=== PATIENT | female | born 1985 | race Caucasian/White ===

== ENCOUNTER 2020-02-03 19:22 | Emergency (ER) | payer OTHER, SELFPAY ==
--- NOTE | 2020-02-03 20:01 | ED.URI ---
HPI - URI/Sore Throat General Stated Complaint: fever and headache <Jose Guadalupe Torre NP - Last Filed: 02/03/20 21:08> Time Seen by Provider: 02/03/20 20:00 <Jose Guadalupe Torre NP - Last Filed: 02/03/20 21:08> Source: patient <Jose Guadalupe Torre NP - Last Filed: 02/03/20 21:08> Mode of arrival: ambulatory <Jose Guadalupe Torre NP - Last Filed: 02/03/20 21:08> Limitations: no limitations <Jose Guadalupe Torre NP - Last Filed: 02/03/20 21:08> History of Present Illness HPI Narrative: 34-year-old female with history of asthma presenting laboratory view treated with complaint of clove the setting of recent URI has had congestion and runny nose for the past to 5 days. states she returned from [place] 2 weeks ago was feeling ok and now these sx's. <Jose Guadalupe Torre NP - Last Filed: 02/03/20 21:08> MD elicited complaint: cough, rhinorrhea and sinus pain <Jose Guadalupe Torre NP - Last Filed: 02/03/20 21:08> Pertinent past history: asthma <Jose Guadalupe Torre NP - Last Filed: 02/03/20 21:08> Onset (ago): day(s) <Jose Guadalupe Torre NP - Last Filed: 02/03/20 21:08> Consistency: constant <Jose Guadalupe Torre NP - Last Filed: 02/03/20 21:08> Severity: moderate <Jose Guadalupe Torre NP - Last Filed: 02/03/20 21:08> Description of mucous: clear <Jose Guadalupe Torre NP - Last Filed: 02/03/20 21:08> Able to tolerate fluids by mouth: Yes <Jose Guadalupe Torre NP - Last Filed: 02/03/20 21:08> Exacerbating factors: nothing <Jose Guadalupe Torre NP - Last Filed: 02/03/20 21:08> Relieving factors: nothing <Jose Guadalupe Torre NP - Last Filed: 02/03/20 21:08> Associated symptoms: cough <Jose Guadalupe Torre NP - Last Filed: 02/03/20 21:08> Treatments prior to arrival: none <Jose Guadalupe Torre NP - Last Filed: 02/03/20 21:08> Related Data Home Medications: Previous Rx's Medication Instructions Recorded azithromycin [Zithromax Z-Wong] 250 mg PO DAILY 5 Days #6 tab 02/03/20 prednisone 40 mg PO DAILY #10 tab 02/03/20 <Jose Guadalupe Torre NP - Last Filed: 02/03/20 21:08> Allergies/Adverse Reactions: Allergies Allergy/AdvReac Type Severity Reaction Status Date / Time Seafood Allergy Severe HIVES/SWELL Uncoded 01/05/20 17:13 ING seafood Allergy Unknown Uncoded 09/02/17 00:00 <Jose Guadalupe Torre NP - Last Filed: 02/03/20 21:08> Review of Systems Review of Systems: Constitutional: No Weight loss, No Fever, No Chills, No Night Sweats, No Fatigue, No Malaise ENT/Mouth: No Hearing loss, No Ear Pain, No Hoarseness, No sore throat, No Rhinorrhea, No Swallowing Difficulty Eyes: No Eye Pain, No Swelling, No Redness, No Foreign Body, No Discharge, No Vision Changes Cardiovascular: No Chest Pain, No SOB, No Dyspnea on Exertion, No Orthopnea, No Edema, No Palpitations Respiratory: + Cough, No Sputum, No Wheezing, No Smoke Exposure, No Dyspnea Gastrointestinal: No Nausea, No Vomiting, No Diarrhea, No Constipation, No abdominal Pain, No Hematochezia, No Melena Genitourinary: no irregular bleeding, No Dysuria, No Urinary Frequency, No Hematuria, No Urinary Incontinence, No Urgency, No Flank Pain, No Urinary Flow Changes, No Hesitancy Musculoskeletal: No joint pain, No Myalgias, No Joint Swelling Skin: No Skin Lesions, No rash Neuro: No Weakness, No Numbness, No Paresthesias, No Loss of Consciousness, No Dizziness, No Headache Psych: No Anxiety/Panic, No Depression, No SI/HI/AH/VH, No Social Issues Heme/Lymph: No Bruising, No Bleeding,No Lymphadenopathy Endocrine: No Polyuria, No Polydipsia, No Temperature Intolerance <Jose Guadalupe Torre NP - Last Filed: 02/03/20 21:08> [facility] Past Medical History Attestation statement: The following information was validated with the patient. <Jose Guadalupe Torre NP - Last Filed: 02/03/20 21:08> Medical History: Medical History (Updated 02/03/20 @ 21:06 by Jose Guadalupe Torre NP) Asthma Gastritis Migraine Sleep apnea <Jose Guadalupe Torre NP - Last Filed: 02/03/20 21:08> Surgical History: Surgical History (Updated 02/03/20 @ 20:17 by Shazia Macias) H/O left knee surgery <Jose Guadalupe Torre NP - Last Filed: 02/03/20 21:08> Social History Social History: Social History Advance Directives: No <Jose Guadalupe Torre NP - Last Filed: 02/03/20 21:08> Physical Exam Vital Signs: Vital Signs: Vital Signs Temp Pulse Resp BP Pulse Ox 02/03/20 20:07 98.7 F 93 16 131/83 98 Body Mass Index 38.4 Reviewed <Jose Guadalupe Torre NP - Last Filed: 02/03/20 21:08> Vital Signs: Vital Signs Temp Pulse Resp BP Pulse Ox 02/03/20 20:07 98.7 F 93 16 131/83 98 Body Mass Index 38.4 <Adam Lynne MD - Last Filed: 02/03/20 21:12> Const: General: cooperative and healthy appearing; No acute distress or intoxicated appearing <Jose Guadalupe Torre NP - Last Filed: 02/03/20 21:08> Nutritional Appearance: average body habitus <Jose Guadalupe Torre NP - Last Filed: 02/03/20 21:08> Orientation/consciousness: patient oriented x3 <Jose Guadalupe Torre NP - Last Filed: 02/03/20 21:08> HENMT: Head: Yes normal to inspection <Jose Guadalupe Torre NP - Last Filed: 02/03/20 21:08> Ears: hearing grossly normal bilaterally <Jose Guadalupe Torre NP - Last Filed: 02/03/20 21:08> Eyes: General: appearance normal, both eyes and all related structures <Jose Guadalupe Torre NP - Last Filed: 02/03/20 21:08> Visual Shannon: normal visual shannon by confrontation <Jose Guadalupe Torre NP - Last Filed: 02/03/20 21:08> Neck: Neck: Yes normal visual inspection and No tender <Jose Guadalupe Torre NP - Last Filed: 02/03/20 21:08> Thyroid: Thyroid normal [facility] Last Filed: 02/03/20 21:08> Chest: Chest palpation & inspection: normal inspection of the chest <[facility] Torre, - Last Filed: 02/03/20 21:08> Resp: Other: mild dry bronchial cough [facility] - Last Filed: 02/03/20 21:08> Effort & Inspection: normal respiratory effort <[facility] - Last Filed: 02/03/20 21:08> Cardio: Jugular venous distension: no JVD [facility] - Last Filed: 02/03/20 21:08> GI: Inspection: Yes normal to inspection [facility] - Last Filed: 02/03/20 21:08> Percussion: Yes normal to percussion [facility] - Last Filed: 02/03/20 21:08> Auscultation: normal bowel sounds <[facility] - Last Filed: 02/03/20 21:08> : General: Yes no CVA tenderness [facility] - Last Filed: 02/03/20 21:08> Back/Spine/Pelvis: Back: no CVA tenderness [facility] - Last Filed: 02/03/20 21:08> Skin: General skin exam: no rashes or lesions noted <[facility] - Last Filed: 02/03/20 21:08> Neuro: General: patient oriented x3 <[facility] Nicho - Last Filed: 02/03/20 21:08> Extrem: General: Yes normal to inspection [facility] - Last Filed: 02/03/20 21:08> Course Course Course Narrative: I have reviewed the chart <Adam Lynne MD - Last Filed: 02/03/20 21:12> MDM - URI/Sore Throat Differential Diagnosis Differential diagnosis: Likely upper respiratory infection, viral infection and bronchitis; Unlikely croup, otitis media, sinusitis, influenza and pharyngitis <[facility] ALEXIA Torre - Last Filed: 02/03/20 21:08> Imaging Data Chest x-ray: Radiologist's impression: [address] [address] XRay Report Signed Patient: Michael Melendrez#: [id number] : 1985Acct:[id number] Age/Sex: 34 / FADM Date: 02/03/20 Loc: HO.ED Attending Dr: Ordering Physician: Jose Guadalupe Torre NP Date of Service: 02/03/20 Procedure(s): XR chest 1V Accession Number(s): [id number] cc: Jose Guadalupe Torre NP~ EXAMINATION: XR CHEST CLINICAL INFORMATION: Cough COMPARISON: Chest x-ray 05/26/2017 TECHNIQUE: Frontal portable view of the chest was obtained. 8:24 PM FINDINGS: No significant abnormality is noted involving the heart, lungs, mediastinum, bony thorax or soft tissues. IMPRESSION: Unremarkable examination. Dictated By:CHARO CORTES MD Signed By:<Electronically signed by CHARO CORTES MD in OV>02/03/202040 DD/ 00 TD/TT: Tumbler Plater: KALI <Jose Guadalupe Torre NP - Last Filed: 02/03/20 21:08> Discharge Plan Discharge Clinical Impression: Upper respiratory infection, Bronchitis <Jose Guadalupe Torre NP - Last Filed: 02/03/20 21:08> Patient Disposition: Home, Self-Care <Jose Guadalupe Torre NP - Last Filed: 02/03/20 21:08> Instructions: Acute Bronchitis (ED) <Jose Guadalupe Torre NP - Last Filed: 02/03/20 21:08> Additional Instructions: Take medication prescribed COVID test is pending Chest x-ray was unremarkable did not show any evidence of pneumonia Drink plenty of fluids Self-isolation We will call you with COVID test results in 3-4 days Return if any concerns or worsening symptoms Thank you <Jose Guadalupe Torre NP - Last Filed: 02/03/20 21:08> Prescriptions: New azithromycin [Zithromax Z-Wong] 250 mg tablet 250 mg PO DAILY 5 Days Qty: 6 RF: 0 prednisone 20 mg tablet 40 mg PO DAILY Qty: 10 RF: 0 <Jose Guadalupe Torre NP - Last Filed: 02/03/20 21:08> Referrals: ED Physician,Generic [Emergency Provider] - 1 week ( your primary care) <Jose Guadalupe Torre NP - Last Filed: 02/03/20 21:08>
[2020-02-03 20:07] VITALS: BP 131/83; PULSE 93; RESP 16; TEMP 37.1; O2SAT 98; BMI 38.4
== END 2020-02-03 21:00 | disposition home or self-care (01) ==
PROVIDERS: Nurse Practitioner Primary Care; Emergency Provider Emergency Medicine
DX: J06.9 Acute upper respiratory infection, unspecified (principal); J20.9 Acute bronchitis, unspecified; Z20.828 Contact with and (suspected) exposure to other viral communicable diseases
CPT/HCPCS: 71045; 87635; 99283; 99284

== ENCOUNTER → 2020-05-03 12:00 | Outpatient (BNVA) | payer OTHER, SELFPAY | PROVIDERS: Visit Provider Surgery | DX: Z01.818 Encounter for other preprocedural examination (principal); R06.02 Shortness of breath; E66.01 Morbid (severe) obesity due to excess calories; Z68.41 Body mass index [BMI] 40.0-44.9, adult | CPT/HCPCS: 99202 ==

== ENCOUNTER 2020-05-08 06:16 | Outpatient (REF) | payer OTHER, SELFPAY ==
--- NOTE | 2020-05-08 06:43 | ECG_ITS ---
Test Reason : SOB Blood Pressure : / mmHG Vent. Rate : 080 BPM Atrial Rate : 080 BPM P-R Int : 154 ms QRS Dur : 086 ms QT Int : 392 ms P-R-T Axes : 058 022 008 degrees QTc Int : 452 ms Normal sinus rhythm Normal ECG When compared with ECG of 26-MAY-2017 10:23, No significant change was found Referred By: Selena Steele Electronically Signed By:RASHMI POWELL
--- NOTE | 2020-05-08 06:51 | XR_ITS ---
EXAMINATION: XR CHEST CLINICAL INFORMATION: Shortness of breath COMPARISON: Chest 02/03/2020 TECHNIQUE: 2 views of the chest were obtained. FINDINGS: No significant abnormality is noted involving the heart, lungs, mediastinum, bony thorax or soft tissues. XR/XR chest 2V IMPRESSION: Unremarkable chest examination.
[2020-05-08 07:16] LABS: Mean Corpuscular Hemoglobin 28.9 pg (27.0-33.0)
[2020-05-08 07:18] LABS: Basophils Percent Auto 0.3 % (0-2); Eosinophils Absolute Auto 0.1 X10*3/uL (0.0-0.4); Eosinophils Percent Auto 1.3 % (0-4); Hematocrit 39.9 % (37-47); Hemoglobin 12.8 g/dl (12.0-16.0); Imm Gran Abs Auto 0.02 X10*3/uL (0.00-0.03); Imm Gran Pct Auto 0.2 % (0.0-0.4); Lymphocytes Absolute Auto 3.1 X10*3/uL (1.2-4.9); Lymphocytes Percent Auto 31.7 % (20-40); Mean Corpuscular HGB Conc 32.1 g/dl (31.0-35.0); Mean Corpuscular Volume 90.1 fL (80-98); Monocytes Absolute Auto 0.8 X10*3/uL (0.1-1.2); Monocytes Percent Auto 8.2 % (2-11); Neutrophils Absolute Auto 5.8 X10*3/uL (2.0-8.3); Neutrophils Percent Auto 58.3 % (45-73); Platelet Count 235 X10*3/uL (160-400); Red Blood Count 4.43 X10*6/uL (4.20-5.50); Red Cell Distribution Width 12.3 % (11.0-16.0); White Blood Count 9.9 X10*3/uL (4.8-10.8)
[2020-05-08 07:40] LABS: Alanine Aminotransferase 47 U/L (0-31); Albumin Level 4.1 g/dL (3.5-5.0); Alkaline Phosphatase 53 U/L (39-117); Anion Gap 14 (12-20); Aspartate Amino Transferase 28 U/L (5-31); Bilirubin Total 0.6 mg/dL (0.0-1.0); Blood Urea Nitrogen 17 mg/dL (9-16); C Reactive Protein 1.27 mg/dL (< or = 0.50); Calcium 9.5 mg/dL (8.4-10.2); Carbon Dioxide 24 mmol/L (22-29); Chloride 104 mmol/L (96-108); Cholesterol 163 mg/dL; Estimated Glomerular Filt Rate > 60; Glucose Fasting 84 mg/dL (60-99); HDL Cholesterol 33 mg/dL; Iron 42 mcg/dL (30-160); LDL Cholesterol Calculated 117 mg/dl; Percent Iron Saturation 14 % (15-50); Potassium 3.6 mmol/l (3.3-5.1); Sodium 138 mmol/L (135-145); Total Iron Binding Capacity 296 mcg/dL (228-428); Total Protein 7.8 g/dL (6.5-8.0); Triglycerides 68 mg/dL; Unsaturated Iron Binding 254 ug/dL
[2020-05-08 07:47] LABS: MANUAL DIFF FLAG NO
[2020-05-08 08:02] LABS: Vitamin D 25-OH Total 4.7 ng/mL (>30)
[2020-05-08 09:08] LABS: Vitamin B12 175 pg/mL (200-900)
[2020-05-10 20:07] LABS: Calcium (PTHI) 9.7 mg/dL (8.6-10.2); PTHI 20 pg/mL (14-64)
[2020-05-11 00:02] LABS: Zinc 62 mcg/dL (60-130)
[2020-05-12 18:07] LABS: Vitamin A 23 mcg/dL (38-98)
[2020-05-13 08:27] LABS: Vitamin B1 7 nmol/L (8-30)
== END 2020-05-08 06:17 | disposition home or self-care (01) ==
LOC: HO.LAB 06:16
PROVIDERS: Visit Provider Surgery
DX: Z01.818 Encounter for other preprocedural examination (principal); R06.02 Shortness of breath
CPT/HCPCS: 36415; 71046; 80053; 80061; 82306; 82607; 83540; 83970; 84425; 84443; 84590; 84630; 85025; 86140; 93005

== ENCOUNTER → 2020-05-17 08:11 | Outpatient (BNVA) | payer OTHER, SELFPAY | PROVIDERS: Visit Provider Surgery ==

== ENCOUNTER 2020-05-18 08:51 | Outpatient (REF) | payer OTHER, SELFPAY ==
[2020-05-19 13:47] LABS: H Pylori Breath Test NOT DETECTED (NOT DETECTED)
== END 2020-05-18 08:52 | disposition home or self-care (01) ==
LOC: HO.LNP 08:51
PROVIDERS: Visit Provider Physician Assistant
DX: A04.8 Other specified bacterial intestinal infections (principal)
CPT/HCPCS: 83013; 99211

== ENCOUNTER → 2020-05-31 08:25 | Outpatient (BNVA) | payer OTHER, SELFPAY | PROVIDERS: Visit Provider Dietitian, Registered ==

== ENCOUNTER → 2020-06-14 13:50 | Outpatient (BNVA) | payer OTHER, SELFPAY | PROVIDERS: PCP Nurse Practitioner Family; Visit Provider Surgery | DX: E66.9 Obesity, unspecified (principal); Z68.35 Body mass index [BMI] 35.0-35.9, adult | CPT/HCPCS: 99212 ==

== ENCOUNTER → 2020-06-20 08:17 | Outpatient (BNVA) | payer OTHER, SELFPAY | PROVIDERS: PCP Nurse Practitioner Family; Visit Provider Dietitian, Registered ==

== ENCOUNTER → 2020-07-09 13:54 | Outpatient (BNVA) | payer OTHER, SELFPAY | PROVIDERS: PCP Nurse Practitioner Family; Visit Provider Surgery | DX: E66.9 Obesity, unspecified (principal); Z68.34 Body mass index [BMI] 34.0-34.9, adult | CPT/HCPCS: 99212 ==

== ENCOUNTER → 2020-07-16 13:18 | Outpatient (BNVA) | payer OTHER, SELFPAY | PROVIDERS: PCP Nurse Practitioner Family; Visit Provider Physician Assistant | DX: Z01.818 Encounter for other preprocedural examination (principal); E66.9 Obesity, unspecified; Z68.33 Body mass index [BMI] 33.0-33.9, adult | CPT/HCPCS: 99212 ==

== ENCOUNTER 2020-07-18 07:13 | Inpatient (IN) | payer OTHER, SELFPAY ==
[2020-07-16 11:00] VITALS: BMI 34.6
[2020-07-17 10:48] VITALS: BMI 34.2
--- NOTE | 2020-07-17 11:22 | ECG_ITS ---
Test Reason : SOB Blood Pressure : / mmHG Vent. Rate : 066 BPM Atrial Rate : 066 BPM P-R Int : 158 ms QRS Dur : 088 ms QT Int : 430 ms P-R-T Axes : 049 023 019 degrees QTc Int : 450 ms Normal sinus rhythm Normal ECG When compared with ECG of 08-MAY-2020 06:45, No significant change was found Referred By: Selena Steele Electronically Signed By:Gulshan Thompson
--- NOTE | 2020-07-17 12:22 | HO.ANESPROP2 ---
Documented by User: Triny Robbins 07/17/20 12:23 HPI - Anesthesia Eval Consult details Narrative: 34yo F for Gastrectomy Sleeve PENDING: LABS T&S PMFSH Active Problems Active Problems: All Active Problems (Updated 07/16/20 @ 15:54 by Selena Steele MD) BMI 33.0-33.9,adult (Acute) Preoperative examination (Acute) Shortness of breath (Acute) Obesity (Acute) BMI 39.0-39.9,adult (Acute) BMI 40.0-44.9, adult (Acute) Morbid (severe) obesity due to excess calories (Acute) Vitamin D deficiency (Acute) Vitamin A deficiency (Acute) Vitamin B1 deficiency (Acute) BMI 35.0-35.9,adult (Acute) BMI 34.0-34.9,adult (Acute) Adjustment disorder, unspecified (Acute) Past Medical History Medical History Asthma Gastritis Migraine MARYANA on CPAP Prediabetes Sleep apnea Family History Family History Father Hypertension Heart problem Vertigo Mother Dementia Alzheimer disease Pneumathemia Sister Depressed Hypertension Anxiety History of gastric surgery Sister Diabetes mellitus Hypertension Depressed Anxiety Brother No problems noted. Brother No problems noted. Son Asthma Diabetes mellitus Obese abdomen Daughter Asthma Surgical History Surgical History H/O left knee surgery History of bilateral tubal ligation Hx laparoscopic cholecystectomy Hx of colonoscopy Normal endoscopy Social History Social History Are you a primary managed care nurse to a significant other at home: No Do you presently have visiting nurse or other home services: No Alcohol intake: never Smoking Status: Never smoker Use of substances other than those prescribed or required for medical reasons: No Have you been hit, kicked, punched, or otherwise hurt by someone within the past year? If so, by whom?: No Advance Directives: No Advance Directives Information Provided: No Advance Directives on File: No Recently lost weight without trying: No Meds Allergies Allergy/AdvReac Type Severity Reaction Status Date / Time Seafood Allergy Severe HIVES/SWELL Uncoded 07/18/20 08:54 ING Home Medications Medication Instructions Recorded Confirmed Last Taken Type diclofenac sodium 1 % topical gel 2 g TOPICAL QID 05/03/20 07/16/20 Unknown History mecobalamin (vitamin B12) 1,000 1,000 mcg PO DAILY 05/17/20 07/16/20 07/09/20 History mcg chewable tablet albuterol sulfate 90 mcg/actuation 1 inh INHALATION QID PRN 06/14/20 07/16/20 Unknown History aerosol inhaler Exam Exam Date and Time: July 17, 2020 1222 Height,Weight and Vital Signs: Height 5 ft 5 in Weight 93.44 kg Narrative Narrative: EKG 07/17/20 Vent. Rate : 066 BPM Atrial Rate : 066 BPM P-R Int : 158 ms QRS Dur : 088 ms QT Int : 430 ms P-R-T Axes : 049 023 019 degrees QTc Int : 450 ms Normal sinus rhythm Normal ECG When compared with ECG of 08-MAY-2020 06:45, No significant change was found Assessment and Plan Assessment Anesthesia Assessment: Chart Reviewed Documented by User: Yesenia Wolf 07/18/20 09:37 [facility] Past Medical History Medical History Asthma Gastritis Migraine MARYANA on CPAP Prediabetes Sleep apnea Family History Family History Father Hypertension Heart problem Vertigo Mother Dementia Alzheimer disease Pneumathemia Sister Depressed Hypertension Anxiety History of gastric surgery Sister Diabetes mellitus Hypertension Depressed Anxiety Brother No problems noted. Brother No problems noted. Son Asthma Diabetes mellitus Obese abdomen Daughter Asthma Family history of problems with anesthesia: No Surgical History Surgical History H/O left knee surgery History of bilateral tubal ligation Hx laparoscopic cholecystectomy Hx of colonoscopy Normal endoscopy History of Problems with Anesthesia: No Social History Social History Are you a primary managed care nurse to a significant other at home: No Do you presently have visiting nurse or other home services: No Alcohol intake: never Smoking Status: Never smoker Use of substances other than those prescribed or required for medical reasons: No Have you been hit, kicked, punched, or otherwise hurt by someone within the past year? If so, by whom?: No Advance Directives: No Advance Directives Information Provided: No Advance Directives on File: No Recently lost weight without trying: No Meds Allergies Allergy/AdvReac Type Severity Reaction Status Date / Time Seafood Allergy Severe HIVES/SWELL Uncoded 07/18/20 08:54 ING Home Medications Medication Instructions Recorded Confirmed Last Taken Type diclofenac sodium 1 % topical gel 2 g TOPICAL QID 05/03/20 07/16/20 Unknown History mecobalamin (vitamin B12) 1,000 1,000 mcg PO DAILY 05/17/20 07/16/20 07/09/20 History mcg chewable tablet albuterol sulfate 90 mcg/actuation 1 inh INHALATION QID PRN 06/14/20 07/16/20 Unknown History aerosol inhaler Exam Height,Weight and Vital Signs: Vital Signs Temp Pulse Resp BP Pulse Ox 07/18/20 08:10 97.3 F 79 18 115/69 97 Pertinent Lab Results Pertinent Lab Results: Lab Results 07/17/20 07/17/20 07/17/20 Range/Units 11:18 11:35 11:35 WBC 8.0 (4.8-10.8) X10*3/uL RBC 4.95 (4.20-5.50) X10*6/uL Hgb 14.1 (12.0-16.0) g/dl Hct 45.3 (37-47) % MCV 91.5 (80-98) fL MCH 28.5 (27.0-33.0) pg MCHC 31.1 (31.0-35.0) g/dl RDW 12.8 (11.0-16.0) % Plt Count 218 (160-400) X10*3/uL MPV Not Reportable Immature Gran % (Auto) 0.3 (0.0-0.4) % Neut % (Auto) 64.7 (45-73) % Lymph % (Auto) 26.1 (20-40) % Wake % (Auto) 7.0 (2-11) % Eos % (Auto) 1.6 (0-4) % Baso % (Auto) 0.3 (0-2) % Lymph # (Auto) 2.1 (1.2-4.9) X10*3/uL Wake # (Auto) 0.6 (0.1-1.2) X10*3/uL Eos # (Auto) 0.1 (0.0-0.4) X10*3/uL Baso # (Auto) 0.0 (0.0-0.2) X10*3/uL Abs Immat Gran (auto) 0.02 (0.00-0.03) X10*3/uL Absolute Neuts (auto) 5.2 (2.0-8.3) X10*3/uL Absolute Nucleated RBC 0.000 (0.0-0.012) X10*3/uL Nucleated RBC % (auto) 0.0 (0.0-0.2) /100WBC PT 13.2 H (10.8-13.0) SEC INR 1.1 (0.9-1.1) APTT 42.6 H (24.1-38.0) SEC Sodium (135-145) mmol/L Potassium (3.3-5.1) mmol/L Chloride (96-108) mmol/L Carbon Dioxide (22-29) mmol/L Anion Gap (12-20) BUN (9-16) mg/dL Creatinine (0.5-1.4) mg/dL Estim Creat Clear Calc Estimated GFR POC Glucose (60-115) mg/dL Random Glucose (60-115) mg/dL Calcium (8.4-10.2) mg/dL Albumin (3.5-5.0) g/dL 25-OH Vitamin D Total (>30) ng/mL Urine Color Urine Appearance Urine pH (5.0-8.0) Ur Specific [place] (1.005-1.025) Urine Protein (NEG-TRACE) MG/DL Urine Glucose (UA) (NEG) MG/DL Urine Ketones (NEG) MG/DL Urine Blood (NEG) Urine Nitrite (NEG) Ur Leukocyte Esterase (NEG) Urine RBC (0) /HPF Urine WBC (0-4) /HPF Ur Squamous Epith Cells /LPF Urine Bacteria /LPF Urine Test NEGATIVE (NEGATIVE) COVID-19 (FIDELINA) (Negative) COVID-19 [facility] Blood Type Antibody Screen 07/17/20 07/17/20 07/17/20 Range/Units 11:35 11:35 Unknown WBC (4.8-10.8) X10*3/uL RBC (4.20-5.50) X10*6/uL Hgb (12.0-16.0) g/dl Hct (37-47) % MCV (80-98) fL MCH (27.0-33.0) pg MCHC (31.0-35.0) g/dl RDW (11.0-16.0) % Plt Count (160-400) X10*3/uL MPV Immature Gran % (Auto) (0.0-0.4) % Neut % (Auto) (45-73) % Lymph % (Auto) (20-40) % Wake % (Auto) (2-11) % Eos % (Auto) (0-4) % Baso % (Auto) (0-2) % Lymph # (Auto) (1.2-4.9) X10*3/uL Wake # (Auto) (0.1-1.2) X10*3/uL Eos # (Auto) (0.0-0.4) X10*3/uL Baso # (Auto) (0.0-0.2) X10*3/uL Abs Immat Gran (auto) (0.00-0.03) X10*3/uL Absolute Neuts (auto) (2.0-8.3) X10*3/uL Absolute Nucleated RBC (0.0-0.012) X10*3/uL Nucleated RBC % (auto) (0.0-0.2) /100WBC PT (10.8-13.0) SEC INR (0.9-1.1) APTT (24.1-38.0) SEC Sodium 141 (135-145) mmol/L Potassium 4.1 (3.3-5.1) mmol/L Chloride 106 (96-108) mmol/L Carbon Dioxide 26 (22-29) mmol/L Anion Gap 13 (12-20) BUN 11 (9-16) mg/dL Creatinine 0.73 (0.5-1.4) mg/dL Estim Creat Clear Calc 120.4 Estimated GFR > 60 POC Glucose (60-115) mg/dL Random Glucose 94 (60-115) mg/dL Calcium 8.8 D (8.4-10.2) mg/dL Albumin 4.0 (3.5-5.0) g/dL 25-OH Vitamin D Total 64.5 (>30) ng/mL Urine Color YELLOW Urine Appearance HAZY Urine pH 6.0 (5.0-8.0) Ur Specific [place] 1.025 (1.005-1.025) Urine Protein NEG (NEG-TRACE) MG/DL Urine Glucose (UA) NEG (NEG) MG/DL Urine Ketones NEG (NEG) MG/DL Urine Blood TRACE (NEG) Urine Nitrite NEG (NEG) Ur Leukocyte Esterase NEG (NEG) Urine RBC 0-2 (0) /HPF Urine WBC 0 (0-4) /HPF Ur Squamous Epith Cells 2+ /LPF Urine Bacteria TRACE /LPF Urine Test (NEGATIVE) COVID-19 (FIDELINA) (Negative) COVID-19 Clin Com Blood Type A Positive Antibody Screen NEGATIVE 07/18/20 07/18/20 Range/Units 07:45 08:01 WBC (4.8-10.8) X10*3/uL RBC (4.20-5.50) X10*6/uL Hgb (12.0-16.0) g/dl Hct (37-47) % MCV (80-98) fL MCH (27.0-33.0) pg MCHC (31.0-35.0) g/dl RDW (11.0-16.0) % Plt Count (160-400) X10*3/uL MPV Immature Gran % (Auto) (0.0-0.4) % Neut % (Auto) (45-73) % Lymph % (Auto) (20-40) % Wake % (Auto) (2-11) % Eos % (Auto) (0-4) % Baso % (Auto) (0-2) % Lymph # (Auto) (1.2-4.9) X10*3/uL Wake # (Auto) (0.1-1.2) X10*3/uL Eos # (Auto) (0.0-0.4) X10*3/uL Baso # (Auto) (0.0-0.2) X10*3/uL Abs Immat Gran (auto) (0.00-0.03) X10*3/uL Absolute Neuts (auto) (2.0-8.3) X10*3/uL Absolute Nucleated RBC (0.0-0.012) X10*3/uL Nucleated RBC % (auto) (0.0-0.2) /100WBC PT (10.8-13.0) SEC INR (0.9-1.1) APTT (24.1-38.0) SEC Sodium (135-145) mmol/L Potassium (3.3-5.1) mmol/L Chloride (96-108) mmol/L Carbon Dioxide (22-29) mmol/L Anion Gap (12-20) BUN (9-16) mg/dL Creatinine (0.5-1.4) mg/dL Estim Creat Clear Calc Estimated GFR POC Glucose 83 (60-115) mg/dL Random Glucose (60-115) mg/dL Calcium (8.4-10.2) mg/dL Albumin (3.5-5.0) g/dL 25-OH Vitamin D Total (>30) ng/mL Urine Color Urine Appearance Urine pH (5.0-8.0) Ur Specific [place] (1.005-1.025) Urine Protein (NEG-TRACE) MG/DL Urine Glucose (UA) (NEG) MG/DL Urine Ketones (NEG) MG/DL Urine Blood (NEG) Urine Nitrite (NEG) Ur Leukocyte Esterase (NEG) Urine RBC (0) /HPF Urine WBC (0-4) /HPF Ur Squamous Epith Cells /LPF Urine Bacteria /LPF Urine Test (NEGATIVE) COVID-19 (FIDELINA) Negative (Negative) COVID-19 Clin Com See Note Blood Type Antibody Screen Airway Mallampati Class: II TM Dist: >3cm Neck ROM: Full Partial: Upper Heart: RRR Lungs: CTAB Assessment and Plan Assessment Anesthesia Assessment: Anesthesia Plan Discussed and Chart Reviewed Final Anesthetic Review NPO: Yes ASA Class: III Final Preanesthetic Review: No Changes in Pt Med Stat, Meds/Allgs Chart Reviewed, Consent Obtained/Reviewed and Anes Risks/Benef Reviewed Patient Risk: Intermediate Procedure Risk: Intermediate Assessment/Block/Sedation in SS: Assess/Block/Sedation-SS Anesthetic Plan Anesthetic Plan: GA Disposition: Inp. Admit - Standard Bed
[2020-07-17 13:15] LABS: Glucose Urine UA NEG (NEG); Leukocyte Esterase Urine NEG (NEG); Nitrite Urine NEG (NEG); Specific Gravity - Urine 1.025 (1.005-1.025); Urine Blood TRACE (NEG); Urine Ketones NEG (NEG); Urine Protein NEG (NEG-TRACE)
[2020-07-17 13:16] LABS: Eosinophils Percent Auto 1.6 % (0-4)
[2020-07-17 13:17] LABS: Anion Gap 13 (12-20); Blood Urea Nitrogen 11 mg/dL (9-16); Calcium 8.8 mg/dL (8.4-10.2); Carbon Dioxide 26 mmol/L (22-29); Chloride 106 mmol/L (96-108); Creatinine Clr Calc Pharmacy 120.4; Estimated Glomerular Filt Rate > 60; Glucose Random 94 mg/dL (60-115); Potassium 4.1 mmol/L (3.3-5.1); Sodium 141 mmol/L (135-145)
[2020-07-17 13:19] LABS: Appearance Urine HAZY; Color Urine YELLOW
[2020-07-17 13:19] LABS: Basophils Percent Auto 0.3 % (0-2); Eosinophils Absolute Auto 0.1 X10*3/uL (0.0-0.4); Hematocrit 45.3 % (37-47); Hemoglobin 14.1 g/dl (12.0-16.0); Imm Gran Abs Auto 0.02 X10*3/uL (0.00-0.03); Imm Gran Pct Auto 0.3 % (0.0-0.4); Lymphocytes Absolute Auto 2.1 X10*3/uL (1.2-4.9); Lymphocytes Percent Auto 26.1 % (20-40); Mean Corpuscular HGB Conc 31.1 g/dl (31.0-35.0); Mean Corpuscular Hemoglobin 28.5 pg (27.0-33.0); Mean Corpuscular Volume 91.5 fL (80-98); Monocytes Absolute Auto 0.6 X10*3/uL (0.1-1.2); Neutrophils Absolute Auto 5.2 X10*3/uL (2.0-8.3); Neutrophils Percent Auto 64.7 % (45-73); Platelet Count 218 X10*3/uL (160-400); Red Blood Count 4.95 X10*6/uL (4.20-5.50); Red Cell Distribution Width 12.8 % (11.0-16.0)
[2020-07-17 13:20] LABS: UPreg QC Valid YES; Urine Pregnancy NEGATIVE (NEGATIVE)
[2020-07-17 13:34] LABS: MANUAL DIFF FLAG NO
[2020-07-17 13:37] LABS: INTERNATIONAL NORM RATIO 1.1 (0.9-1.1); Prothrombin Time 13.2 SEC (10.8-13.0)
[2020-07-17 13:37] LABS: Bacteria Urine TRACE /LPF; RBC Urine 0-2 /HPF (0); Squamous Epithelial Cell Urine 2+ /LPF; WBC Urine 0 /HPF (0-4)
[2020-07-17 13:43] LABS: Vitamin D 25-OH Total 64.5 ng/mL (>30)
[2020-07-17 13:47] LABS: Partial Thromboplastin Time 42.6 SEC (24.1-38.0)
[2020-07-18] VITALS (21 sets, daily range): BP systolic 114–144; BP diastolic 61–83; PULSE 79–102; RESP 14–18; TEMP 36.2–37.1; O2SAT 93–100
[2020-07-18 08:04] LABS: Glucose, Whole Blood 83 mg/dL (60-115)
[2020-07-18 08:17] LABS: COVID-19 Test Negative (Negative)
[2020-07-18] MEDS: Lactated Ringers 1,000 ML 100 ML IVCONT (08:35)
--- NOTE | 2020-07-18 09:39 | PC.NURSE ---
PATIENT OFFERED AN VISITOR SERVICES REPRESENTATIVE AT BEDSIDE FOR ALL INTERVENTIONS AND STATED SHE WAS OKAY WITHOUT AN VISITOR SERVICES REPRESENTATIVE.
--- NOTE | 2020-07-18 11:29 | PM.OP ---
Brief Operative Note Date of Service: 07/18/20 Pre-op diagnosis: Obesity, BMI 33.7, sleep apnea with CPAP use Post-op diagnosis: other (Same and hiatal hernia) Procedure: Laparoscopic sleeve gastrectomy, hiatal hernia repair, Judy block, and intraoperative endoscopy Implants: covidien naresh Surgeon: Selena Steele MD Anesthesia: GETA Estimated blood loss (mL): 10 Pathology: other (Partial gastrectomy) Condition: stable Disposition: PACU
--- NOTE | 2020-07-18 11:30 | W.PM.OPN ---
Operative Note Operative Note Date of Service: 07/18/20 Narrative: Patient was brought into the operating room and placed on the operating room table in the supine position. General anesthesia was induced. Normal DVT prophylaxis was instituted and the patient received 2 grams of cefotetan preoperatively. The abdomen was then prepped and draped in the normal sterile fashion. A safety time-out was performed. A mixture of 1% lidocaine with epinephrine and ??% Marcaine plain was used to anesthetize the planned incision site in the left upper quadrant. A #11 scalpel was used to make a 5 mm left upper quadrant transverse incision through which a veress needle was placed. Three pops were heard going through the fascia. A saline drop test was used to confirm that the veress needle was intraabdominal. An optiview technique was then used to place a 5mm port in the left upper quadrant. A 5 mm 30 degree laproscope was then placed through this port and the abdominal cavity was surveyed and was normal. The patient was placed in reverse Trendelenburg positioning. A makenzie liver retractor was then placed in the subxyphoid position and it was used to hold up the left lobe of the liver to the abdominal wall. This was secured to the bed using the liver retractor kent. A TOMASA block was then performed for pain control on the right side of the abdomen. A 5 mm port was placed in the right upper quadrant near the falciform ligament. A 12 mm port was then placed in the mid epigastrium. One additional 5 mm port was placed in the left upper quadrant just to the left of the placement of the first port. I then performed a TOMASA block on the left side of the abdomen. I then removed the epigastric fat pad; there was a small anterior hiatal hernia noted. I reapproximated the left and right crura with a total of 2 stitches of 2-0 ethibond and a laparoscopic knot pusher. There was no residual hiatal hernia. I then opened up the angle of His. We then gained entry into the lesser sac about 4-5 cm from the pylorus. I had anesthesia place a 34 Vietnamese orogastric tube into the distal antrum to use as a sizing tool for gastric pouch size. I divided the short gastric vessels up to the angle of His. We then started the creation of the gastric pouch by firing a 60 mm purple load endostapler up the stomach about 4-5 cm from the pylorus. We completed the creation of the gastric pouch using a total of 4 firings of a 60 mm purple load stapler. We had anesthesia remove the orogastric tube, then we clamped across the distal antrum using a fired 60 mm endostapler. We flattened the patient and then instilled normal saline surrounding the newly created staple line. I then performed an on-table endoscopy. I passed the gastroscopy into the posterior oropharynx and down the esophagus evaluating the esophageal mucosa which was normal. There was no evidence of hiatal hernia. I passed the gastroscope into the gastric pouch and insufflated the gastric pouch. There was healthy pink mucosa and no evidence of active bleeding. There was no evidence of leak on laparoscopy. I desufflated the gastric pouch and removed the endoscope. I removed the endostapler from the abdomen and suctioned the fluid from the left upper quadrant. I then removed the partial gastrectomy specimen through the epigastric 12 mm port site. I reapproximated the 12 mm port using a 0 maxon suture with a laparoscopic suture passer. I instilled local anesthetic into the fascial closure site and tied the suture down at a pressure of 8-10 mm of Hg. There was no residual fascial defect. We removed the liver retractor and the left upper quadrant 5 mm ports under direct visualization. There was no evidence of any active bleeding. I desufflated the abdomen through the last remaining port and removed the laparoscope and 5 mm port. We reapproximated all incisions with a 4-0 monocryl subcuticular stitch. We cleaned and dried the abdominal skin and applied dermabond skin glue. All count were correct at the end of the case. The patient was awake and in stable condition prior to extubation and transfer to the recovery room.
[2020-07-18] MEDS: HYDROmorphone HCl 0.5 MG/0.5 ML SYRINGE 0.25 MG IVPUSH ×4 (11:55→14:25)
--- NOTE | 2020-07-18 12:02 | PM.PNGS ---
Subjective Subjective Date of Service: 07/19/20 <Aixa Espinoza PA-C - Last Filed: 07/19/20 08:45> 07/19/20 <Selena Steele MD - Last Filed: 07/19/20 09:07> Interval history: POD #1: Patient is doing well. Has been ambulating, using the incentive spirometer, and tolerating po liquids. No nausea or abdominal pain. Has some mild incisional pain. <Aixa Espinoza PA-C - Last Filed: 07/19/20 08:45> Pod #1 s/p lap sleeve gastrectomy and hiatal hernia repair. Doing well. Tolerating stage 3 diet, ambulating in hallway. Pain well controlled. Denies nausea or vomiting. Vitals and labs reviewed and are within limit for post op day 1. On exam, patient is well appearing, abdomen is soft, nd, mild appropriate incisional tenderness. Incisions c/d/I with dermabond in place. Plan: d/c home today. Follow up with me in 2 weeks. <Selena Steele MD - Last Filed: 07/19/20 09:07> Physical Exam Vital Signs: Vital Signs: Last Vital Signs Temp 97.7 F 07/18/20 11:30 Pulse 101 H 07/18/20 11:45 Resp 16 07/18/20 12:00 BP 126/68 07/18/20 11:45 Pulse Ox 100 07/18/20 11:45 Body Mass Index 34.2 <Aixa Espinoza PA-C - Last Filed: 07/19/20 08:45> Const: General: cooperative, comfortable, no acute distress, alert and awake <Aixa Espinoza PA-C - Last Filed: 07/19/20 08:45> Nutritional Appearance: obese <Aixa Espinoza PA-C - Last Filed: 07/19/20 08:45> GI: Inspection: Yes normal to inspection, Yes incision (normal, slight erythema at site of surgical glue, no tenderness/warmth/drai) and Yes obesity <Aixa Espinoza PA-C - Last Filed: 07/19/20 08:45> Extrem: Right lower extremity: lower leg Details: no tenderness; no edema <Aixa Espinoza PA-C - Last Filed: 07/19/20 08:45> Left lower extremity: lower leg Details: no tenderness; no edema <DAVID Cisse Last Filed: 07/19/20 08:45> Progress Note: A&P Assessment and plan (1) History of repair of hiatal hernia: Status: Acute <DAVID Cisse Last Filed: 07/19/20 08:45> (2) BMI 34.0-34.9,adult: Status: Acute <DAVID Cisse Last Filed: 07/19/20 08:45> (3) S/P laparoscopic sleeve gastrectomy: Status: Inactive <DAVID Cisse Last Filed: 07/19/20 08:45> (4) S/P laparoscopic sleeve gastrectomy: Status: Acute <DAVID Cisse Last Filed: 07/19/20 08:45> Assessment and Plan: POD #1: Patient doing well and will be discharged home today. All instructions given in writing. Follow up as scheduled in 2 weeks. <Aixa Espinoza PA-C - Last Filed: 07/19/20 08:45> Fall Risk Details Current Medications: Current Medications Generic Name Dose Route Start Last Admin Trade Name Freq PRN Reason Stop Dose Admin Albuterol Sulfate 2.5 mg 07/18/20 07:12 Albuterol Sulfate (0.083%) 2.5 Mg/3 Ml Vial.Neb INHALE ONCE PRN Shortness of Breath/Wheezing Fentanyl 25 mcg 07/18/20 11:11 Fentanyl Citrate/Pf 100 Mcg/2 Ml Vial IVPUSH Q5M PRN Pain, Moderate (Pain Scale 4-6 Hydromorphone HCl 0.25 mg 07/18/20 11:11 07/18/20 12:00 Hydromorphone Hcl 0.5 Mg/0.5 Ml Syringe IVPUSH 0.25 mg Q5M PRN Administration Pain, Severe (Pain Scale 7-10) Lactated Ringer's 1,000 mls @ 100 mls/hr 07/18/20 07:15 07/18/20 08:35 Lr IVCONT 100 mls/hr .Q10H YOLY Administration Ondansetron HCl 4 mg 07/18/20 11:11 Ondansetron Hcl 4 Mg/2 Ml Vial IVPUSH ONCE PRN Nausea and Vomiting <Aixa Espinoza PA-C - Last Filed: 07/19/20 08:45> Time Spent With Patient Time: Total time spent is greater than 50% in coordination of care (as documented) at patient's floor/unit and/or counseling patient: <Aixa Espinoza PA-C - Last Filed: 07/19/20 08:45> Time with patient: less than 15 minutes <Selena Steele MD - Last Filed: 07/19/20 09:07>
--- NOTE | 2020-07-18 12:05 | P.DS_ITS ---
DS: Providers Provider Date of Service: 07/19/20 Date of admission: 07/18/20 07:13 Primary care physician: Oma Lucas NP DS: Diagnosis Discharge Diagnosis (1) History of repair of hiatal hernia: Status: Acute (2) BMI 34.0-34.9,adult: Status: Acute (3) S/P laparoscopic sleeve gastrectomy: Status: Inactive (4) S/P laparoscopic sleeve gastrectomy: Status: Acute DS: Medications Discharge Medications Home Medications: Home Medications Medication Instructions Recorded Confirmed diclofenac sodium 1 % topical gel 2 g TOPICAL QID 05/03/20 07/16/20 mecobalamin (vitamin B12) 1,000 1,000 mcg PO DAILY 05/17/20 07/16/20 mcg chewable tablet albuterol sulfate 90 mcg/actuation 1 inh INHALATION QID PRN 06/14/20 07/16/20 aerosol inhaler Previous Rx's Medication Instructions Recorded acetaminophen 500 mg tablet 1,000 mg PO Q6H PRN #30 tab 07/16/20 docusate sodium 100 mg capsule 100 mg PO BID #30 cap 07/16/20 famotidine 20 mg tablet 20 mg PO DAILY #30 tab 07/16/20 ondansetron HCl 4 mg tablet 4 mg PO Q6H PRN #30 tab 07/16/20 simethicone 80 mg chewable tablet 80 mg PO TID-QID PRN #30 tab 07/16/20 DS: Summary Time Spent with Patient Time attestation: Total time spent providing and/or coordinating discharge services: Discharge coordination time: Greater than 30 minutes Physical Exam Vital Signs: Vital Signs: Last Vital Signs Temp 97.7 F 07/18/20 11:30 Pulse 99 07/18/20 12:05 Resp 16 07/18/20 12:05 BP 114/73 07/18/20 12:05 Pulse Ox 93 07/18/20 12:05 Body Mass Index 34.2 DS: Data Data Completed and Pending Pending studies at discharge: Pending at discharge 07/18/20 11:07 Surgical [PTH] Routine Labs on day of discharge: Laboratory Results - last 24 hr 07/17/20 07/17/20 07/17/20 11:18 11:35 11:35 WBC 8.0 RBC 4.95 Hgb 14.1 Hct 45.3 MCV 91.5 MCH 28.5 MCHC 31.1 RDW 12.8 Plt Count 218 MPV Not Reportable Immature Gran % (Auto) 0.3 Neut % (Auto) 64.7 Lymph % (Auto) 26.1 [place] % (Auto) 7.0 Eos % (Auto) 1.6 Baso % (Auto) 0.3 Lymph # (Auto) 2.1 [place] # (Auto) 0.6 Eos # (Auto) 0.1 Baso # (Auto) 0.0 Abs Immat Gran (auto) 0.02 Absolute Neuts (auto) 5.2 Absolute Nucleated RBC 0.000 Nucleated RBC % (auto) 0.0 PT 13.2 H INR 1.1 APTT 42.6 H Sodium Potassium Chloride Carbon Dioxide Anion Gap BUN Creatinine Estim Creat Clear Calc Estimated GFR POC Glucose Random Glucose Calcium Albumin 25-OH Vitamin D Total Urine Color Urine Appearance Urine pH Ur Specific [place] Urine Protein Urine Glucose (UA) Urine Ketones Urine Blood Urine Nitrite Ur Leukocyte Esterase Urine RBC Urine WBC Ur Squamous Epith Cells Urine Bacteria Urine Test NEGATIVE COVID-19 (FIDELINA) COVID-PushToTest Blood Type Antibody Screen 07/17/20 07/17/20 07/17/20 11:35 11:35 Unknown WBC RBC Hgb Hct MCV MCH MCHC RDW Plt Count MPV Immature Gran % (Auto) Neut % (Auto) Lymph % (Auto) [place] % (Auto) Eos % (Auto) Baso % (Auto) Lymph # (Auto) [place] # (Auto) Eos # (Auto) Baso # (Auto) Abs Immat Gran (auto) Absolute Neuts (auto) Absolute Nucleated RBC Nucleated RBC % (auto) PT INR APTT Sodium 141 Potassium 4.1 Chloride 106 Carbon Dioxide 26 Anion Gap 13 BUN 11 Creatinine 0.73 Estim Creat Clear Calc 120.4 Estimated GFR > 60 POC Glucose Random Glucose 94 Calcium 8.8 D Albumin 4.0 25-OH Vitamin D Total 64.5 Urine Color YELLOW Urine Appearance HAZY Urine pH 6.0 Ur Specific [place] 1.025 Urine Protein NEG Urine Glucose (UA) NEG Urine Ketones NEG Urine Blood TRACE Urine Nitrite NEG Ur Leukocyte Esterase NEG Urine RBC 0-2 Urine WBC 0 Ur Squamous Epith Cells 2+ Urine Bacteria TRACE Urine Test COVID-19 (FIDELINA) COVID-19 [employer] Blood Type A Positive Antibody Screen NEGATIVE 07/18/20 07/18/20 07:45 08:01 WBC RBC Hgb Hct MCV MCH MCHC RDW Plt Count MPV Immature Gran % (Auto) Neut % (Auto) Lymph % (Auto) [place] % (Auto) Eos % (Auto) Baso % (Auto) Lymph # (Auto) [place] # (Auto) Eos # (Auto) Baso # (Auto) Abs Immat Gran (auto) Absolute Neuts (auto) Absolute Nucleated RBC Nucleated RBC % (auto) PT INR APTT Sodium Potassium Chloride Carbon Dioxide Anion Gap BUN Creatinine Estim Creat Clear Calc Estimated GFR POC Glucose 83 Random Glucose Calcium Albumin 25-OH Vitamin D Total Urine Color Urine Appearance Urine pH Ur Specific [place] Urine Protein Urine Glucose (UA) Urine Ketones Urine Blood Urine Nitrite Ur Leukocyte Esterase Urine RBC Urine WBC Ur Squamous Epith Cells Urine Bacteria Urine Test COVID-19 (FIDELINA) Negative COVID-19 Clin Com See Note Blood Type Antibody Screen Discharge Plan Discharge Patient Disposition: Home, Self-Care Referrals: Oma Lucas, BLENDING COORDINATOR [Primary Care Provider] - Discharge Medications: Continued diclofenac sodium [Arthritis Pain (diclofenac)] 1 % gel 2 g topical QID RF: 0 albuterol sulfate 90 mcg/actuation HFA aerosol inhaler 1 inh inhalation QID PRN (Reason: Wheezing) RF: 0 acetaminophen [Tylenol Extra Strength] 500 mg tablet 1,000 mg PO Q6H PRN (Reason: pain) Qty: 30 RF: 1 famotidine [Pepcid AC] 20 mg tablet 20 mg PO DAILY Qty: 30 RF: 1 simethicone [Gas Relief (simethicone)] 80 mg tablet,chewable 80 mg PO TID-QID PRN (Reason: abdominal distention) Qty: 30 RF: 1 ondansetron HCl [Zofran] 4 mg tablet 4 mg PO Q6H PRN (Reason: nausea and vomiting) Qty: 30 RF: 1 docusate sodium [Colace] 100 mg capsule 100 mg PO BID Qty: 30 RF: 1 Held mecobalamin (vitamin B12) 1,000 mcg tablet,chewable 1,000 mcg PO DAILY RF: 0 Hold Instructions: Resume on 07/23/20. Depends on which protein shake you are using, do not need if using Celebrate 4:1 shake Discharge Orders: Discharge Order (Routine); Ordered 07/19/20 Ordered By: Selena Steele Diet: other Activity on Discharge: No heavy lifting Stand Alone Forms: Patient Portal Discharge page Activity Restrictions/Additional Instructions: Discharge Instructions 1. Please call your doctor or come back to the emergency room should any new symptoms arise. 2. You will receive a courtesy call from [facility] 24-48 hours after discharge. 3. Activity: abstain from alcohol, practice limited stair climbing, no bending, no driving, no exercise, no illicit substances, no lifting, no sex, no tub bath, no work. 4. Diet: continue stage 3 protein shakes until your [address] Steele. 5. Dressing Change/Wound Care: Your incision is covered by surgical glue. If the area is tender, you may apply an ice pack for short intervals (no more than 20 minutes on, followed by at least 20 minutes off). Do not apply heat. Do not use creams, lotions, or topical antibiotics unless instructed to do so by your surgeon. These can cause infection or allergic reaction. 6. Call your doctor if: - Your temperature exceeds 101.5 F - You experience excessive pain or swelling - You have an unexpected reaction to medication - You have excessive bleeding - You experience continued vomiting/nausea - Your incision begins to separate - Your incision shows signs of infection such as increased redness, swelling, excessive pain, heat, or drainage (light blood or clear fluid is normal) 7. General instructions: - No lifting greater than 5 lbs for the next 4 weeks. - No driving within 24 hours of taking narcotic pain medications. - If you do not move your bowels in the next 2 days, please take milk of magnesia over the counter. Please follow the post op diet and do not advance your diet until you are seen in the office in about 2 weeks. - Please walk around your home every hour or two to prevent blood clots from forming in your legs. You do not need to wake from sleeping to walk. - Please sleep in a bed or couch to prevent kinking at the hips and knees. - Please take your incentive spirometer (your lung network systems analyst) home with you and use it for the next few days to prevent pneumonias. - You may shower, no hot tubs, baths or swimming pools. - Please call the office with any questions or concerns such as increasing abdominal pain, fever, chills, shortness of breath, chest pain, leg pain or swelling, or redness or drainage from your incisions. - Please stay on stage 3 diet which includes sugar free clear liquids such as ice pops and jello and broth and crystal light. Avoid all carbonation. Please drink 3 protein shakes with at least 25-30 grams of protein daily or 3 of the Celebrate 4:1 shakes which can be purchased in our office. The Celebrate shakes have all of the bariatric vitamins you need if you consume these shakes. If you are drinking other protein shakes, you will need to purchase the Celebrate multivitamins and calcium that we provide in the office (they will provide all the vitamins you need). Please make sure you are consuming at least 40-60 ounces of water in addition to your 3 protein shakes daily. 8. Do not hesitate to contact the office with any questions at . Discharge Summary Date of Service: 07/19/20 Admitting Diagnosis: iobesity Discharge Diagnosis: same, and hiatal hernia Procedure Performed: Laparoscopic sleeve gastrectomy, hiatal hernia repair, Judy block, and intraoperative endoscopy Discharge Medications: 1. Simethicone 80mg tablet chewable (Si tablet every 6 hours orally for 7 days, #28, 1 RF) q4h prn gas 2. Acetaminophen 500 mg tablet (Si tablets as needed every 6 hours orally for 30 days, #240, 0 RF) 3. Ondansetron 4 mg tablet disintegrating (Si tablet every 6 hours orally for 7 days, #28, 1 RF) 4. Colace 100 mg capsule (Si capsule twice a day for 30 days, #60, 2 RF) 5. Pepcid 20 mg chewable tablet (Si tablet twice a day for 30 days, #60, 3 RF) Discharge Instructions: The patient should continue on the stage III bariatric diet, which includes 3 protein shakes of at least 20-30g of protein on a daily basis. The patient was encouraged to avoid drinking liquids with her protein shakes. They should wait 30-45 minutes in between her meals and drinking water. She should drink at least 40-60 ounces of water on a daily basis. They should ambulate while at home to avoid any blood clots in her lower extremities. They should call with any questions or concerns such as increase in abdominal pain, persistent nausea, vomiting, redness and drainage from her incisions, fever, chills, shortness of breast, or chest pain beyond what is normal for her. The patient should avoid all heavy lifting greater than 5 pounds for the next 4 weeks. The patient is already scheduled to follow up with me in 2 weeks time, but should call the office with any questions prior to that follow up appointment. The patient should not advance their diet until they are seen in the office for the 2 week appointment. Hospital Course: The patient was admitted after undergoing LSG. They were started on stage II (1 oz of fluid every 15 minutes) on POD #0. The next morning they were evaluated and started on stage III diet (protein shakes). All labs were within normal limits. On post-operative day #1 she was feeling better, nausea and epigastric pain improved and they were tolerating stage III bariatric diet well. The patient was discharged home. Discharge Disposition: Home. Care Plan Goals: weight loss Health Concerns: obesity Plan of Treatment: s/p sleeve gastrectomy
[2020-07-18] MEDS: Lactated Ringers 1,000 ML 125 ML IVCONT ×2 (14:12→22:31)
[2020-07-18] MEDS: ondansetron HCL 4 MG/2 ML VIAL IVPUSH (17:24)
[2020-07-18] MEDS: cefoTEtan disodium 2 GM in 0.9 % Sodium Chloride 50 ML IV (21:36)
[2020-07-18] MEDS: Famotidine/PF 20 MG/2 ML VIAL IVPUSH (21:38)
[2020-07-19] MEDS: ondansetron HCL 4 MG/2 ML VIAL IVPUSH ×2 (01:45→08:57)
[2020-07-19 03:05] VITALS: BP 121/76; PULSE 92; RESP 18; TEMP 36.8; O2SAT 98
[2020-07-19] MEDS: Lactated Ringers 1,000 ML 125 ML IVCONT (05:45)
[2020-07-19 06:23] LABS: Eosinophils Percent Auto 0.1 % (0-4); MANUAL DIFF FLAG SCAN; PLT ABN DIST 1; PLT CLUMP 1; SCAN SMEAR FLAG 1
[2020-07-19 06:25] LABS: Basophils Percent Auto 0.1 % (0-2); Hematocrit 41.8 % (37-47); Hemoglobin 12.9 g/dl (12.0-16.0); Imm Gran Abs Auto 0.06 X10*3/uL (0.00-0.03); Imm Gran Pct Auto 0.4 % (0.0-0.4); Lymphocytes Absolute Auto 2.8 X10*3/uL (1.2-4.9); Lymphocytes Percent Auto 17.6 % (20-40); Mean Corpuscular HGB Conc 30.9 g/dl (31.0-35.0); Mean Corpuscular Hemoglobin 27.6 pg (27.0-33.0); Mean Corpuscular Volume 89.3 fL (80-98); Mean Platelet Volume 14.5 fL (9.4-12.3); Monocytes Absolute Auto 1.3 X10*3/uL (0.1-1.2); Neutrophils Absolute Auto 11.7 X10*3/uL (2.0-8.3); Neutrophils Percent Auto 73.8 % (45-73); Platelet Count 178 X10*3/uL (160-400); Red Blood Count 4.68 X10*6/uL (4.20-5.50); Red Cell Distribution Width 12.8 % (11.0-16.0); White Blood Count 15.8 X10*3/uL (4.8-10.8)
[2020-07-19 07:00] LABS: Anion Gap 15 (12-20); Blood Urea Nitrogen 7 mg/dL (9-16); Calcium 8.5 mg/dL (8.4-10.2); Carbon Dioxide 20 mmol/L (22-29); Chloride 108 mmol/L (96-108); Creatinine Clr Calc Pharmacy 129.2; Estimated Glomerular Filt Rate > 60; Glucose Random 88 mg/dL (60-115); Potassium 3.9 mmol/L (3.3-5.1); Sodium 139 mmol/L (135-145)
[2020-07-19 07:07] VITALS: BP 145/88; PULSE 81; RESP 17; TEMP 36.3; O2SAT 98
[2020-07-19 07:23] LABS: SLIDE REVIEW VERIFIED
[2020-07-19] MEDS: 0.9 % Sodium Chloride Flush 3 ML SYRINGE IVFLUSH (08:57)
[2020-07-19] MEDS: Famotidine/PF 20 MG/2 ML VIAL IVPUSH (08:57)
--- NOTE | 2020-07-19 10:19 | MHC.CM.PN ---
NURSE GRADING SUPERVISOR NOTE ELECTRONIC MEDICAL RECORD REVIEWED ALONG WITH CASE DISCUSSED WITH STAFF NURSE, MET WITH PATIENT EXPLAINED THE ROLE OF THE NURSE GRADING SUPERVISOR TO HER AND HER IN THE TRANSITION FROM THE HOSPITAL TO HOME, S/P BARIATRIC SURGERY PATIENT LIVES WITH HER AND CHILDREN . SHE IS ACTIVE INDEPENDENT IN ALL ADLS AND MOBILITY WITH OUT ANY SERVICES. SHE IS ANTICIPATING TO BE DISCHARGED HOME TODAY WITH NO SERVICES DISCHARGE PLAN HOME NO SERVICES PCP DR ALLI REYNA AND CHILDREN . NO SERVICES TRANSPORTATION FAMILY
--- NOTE | 2020-07-19 13:11 | HO.POSTANES ---
Post Anesthesia Evaluation Post Anesthesia Evaluation Vital Signs: Vital Signs Temp Pulse Resp BP Pulse Ox 07/19/20 07:07 97.4 F 81 17 145/88 H 98 07/19/20 03:05 98.2 F 92 18 121/76 98 Anesthesia: General Endotracheal-GETA Mental Status: Awake Pain Control: Satisfactory Nausea/Vomiting: None Anesthesia-Related Issues: No Anes. Related Issues
[2020-07-21 13:31] LABS: Vitamin B1 11 nmol/L (8-30)
[2020-07-21 19:02] LABS: Vitamin A 24 mcg/dL (38-98)
== END 2020-07-19 10:09 | disposition home or self-care (01) | DRG 403 ==
LOC: HO.SSSA 12:02 → HO.S3 15:41
PROVIDERS: Physician Assistant; Admitting Provider Surgery; PCP Nurse Practitioner Family; Visit Provider Surgery
PROC: 0DB64Z3 Excision of Stomach, Percutaneous Endoscopic Approach, Vertical (ICD-10-PCS; CPT 43845; principal; 2020-07-18 09:20)
DX: E66.01 Morbid (severe) obesity due to excess calories (principal); G47.33 Obstructive sleep apnea (adult) (pediatric); K44.9 Diaphragmatic hernia without obstruction or gangrene; Z20.822 Contact with and (suspected) exposure to COVID-19; Z99.89 Dependence on other enabling machines and devices; Z68.33 Body mass index [BMI] 33.0-33.9, adult; Z79.899 Other long term (current) drug therapy
CPT/HCPCS: 36415; 80048; 81001; 81025; 82040; 82306; 82947; 84425; 84590; 85025; 85610; 85730; 86850; 86900; 87635; 88307; 88342; 93005; 99024; C1776; J0131; J1100; J1170; J2250; J2405; J3010

== ENCOUNTER → 2020-07-26 10:47 | Outpatient (BNVA) | payer OTHER, SELFPAY | PROVIDERS: PCP Nurse Practitioner Family; Visit Provider Physician Assistant | DX: E66.9 Obesity, unspecified (principal); Z68.34 Body mass index [BMI] 34.0-34.9, adult; Z98.84 Bariatric surgery status; Z98.890 Other specified postprocedural states; Z87.19 Personal history of other diseases of the digestive system | CPT/HCPCS: 99212 ==

== ENCOUNTER → 2020-08-03 10:01 | Outpatient (BNVA) | payer OTHER, SELFPAY | PROVIDERS: PCP Nurse Practitioner Family; Visit Provider Surgery | DX: E66.9 Obesity, unspecified (principal); Z68.30 Body mass index [BMI] 30.0-30.9, adult; Z98.84 Bariatric surgery status | CPT/HCPCS: 99212 ==

== ENCOUNTER → 2020-08-31 09:57 | Outpatient (BNVA) | payer OTHER, SELFPAY | PROVIDERS: PCP Nurse Practitioner Family; Referring Provider Nurse Practitioner Family; Visit Provider Physician Assistant | DX: E66.3 Overweight (principal); Z68.25 Body mass index [BMI] 25.0-25.9, adult; Z98.84 Bariatric surgery status | CPT/HCPCS: 99212 ==

== ENCOUNTER → 2020-09-07 12:02 | Outpatient (BNVA) | payer OTHER, SELFPAY | PROVIDERS: PCP Nurse Practitioner Family; Referring Provider Nurse Practitioner Family; Visit Provider Physician Assistant | DX: E66.3 Overweight (principal); Z98.84 Bariatric surgery status; Z68.25 Body mass index [BMI] 25.0-25.9, adult | CPT/HCPCS: 99212 ==

== ENCOUNTER → 2020-09-21 10:07 | Outpatient (BNVA) | payer OTHER, SELFPAY | PROVIDERS: PCP Nurse Practitioner Family; Visit Provider Dietitian, Registered | DX: E66.9 Obesity, unspecified (principal); Z68.25 Body mass index [BMI] 25.0-25.9, adult | CPT/HCPCS: 97802 ==

== ENCOUNTER → 2020-10-11 12:31 | Outpatient (BNVA) | payer OTHER, SELFPAY | PROVIDERS: PCP Nurse Practitioner Family; Visit Provider Physician Assistant | DX: E66.3 Overweight (principal); Z98.84 Bariatric surgery status; Z68.26 Body mass index [BMI] 26.0-26.9, adult | CPT/HCPCS: 99212 ==

== ENCOUNTER 2020-10-24 18:27 | Emergency (ER) | payer OTHER, SELFPAY ==
--- NOTE | ~2020-10-24 | CT_ITS ---
EXAMINATION: CT ABDOMEN AND PELVIS WITHOUT CONTRAST CLINICAL INFORMATION: Central abdominal pain. Nausea, vomiting. History of gastric sleeve COMPARISON: 08/20/2017 TECHNIQUE: Multidetector volumetric imaging was performed from the lung bases through the pubic symphysis. Sagittal and coronal reformatted images were obtained on the technologist workstation. This CT examination was performed using dose optimization techniques as appropriate, variously including the following: *Automated exposure control *Adjustment of mA and/or kV according to patient size (this includes techniques or standardized protocols for targeted exams where dose is matched to indication/reason for exam; i.e. extremities or head) *Use of iterative reconstruction technique DLP 576 FINDINGS: The lack of intravenous contrast limits evaluation of the solid visceral organs including the liver, spleen, pancreas, and kidneys. LUNG BASES: No pleural effusion or focal consolidation. Trace pericardial fluid. Normal heart size. LIVER, GALLBLADDER, AND BILIARY TREE: Limited non-contrast evaluation is normal. No gross focal hepatic lesion. Normal liver size and contour. No gross biliary ductal dilation. Status post cholecystectomy. PANCREAS: Limited non-contrast evaluation is normal. No lenora-pancreatic fluid. SPLEEN: Limited non-contrast evaluation is normal. ADRENAL GLANDS: Normal; no adrenal mass. KIDNEYS AND URETERS: Limited non-contrast evaluation is normal. No hydronephrosis, hydroureter, or calculi seen. No perinephric stranding. GASTROINTESTINAL TRACT: Postoperative changes consistent with prior sleeve gastrectomy. Small bowel nondilated. Normal appendix. No evidence of colitis or diverticulitis. ABDOMINAL WALL: Small fat-containing umbilical hernia. LYMPH NODES: No pathologically enlarged lymph nodes in the abdomen or pelvis. VASCULAR: Normal caliber abdominal aorta. BLADDER: Unremarkable. PELVIC VISCERA: Anteverted uterus. No adnexal mass. OSSEOUS STRUCTURES: No acute or suspicious osseous abnormalities. CT/CT abdomen pelvis wo con IMPRESSION: No acute CT findings. Status post gastric sleeve. No evidence of bowel obstruction.
[2020-10-24 19:00] VITALS: BP 126/71; PULSE 69; RESP 19; TEMP 36.7; O2SAT 98; BMI 26.1
--- NOTE | 2020-10-24 19:53 | ED_ITS ---
HPI - Abdominal Pain General Chief Complaint: Abdominal Pain Stated Complaint: Abd pain Time Seen by Provider: 10/24/20 19:37 Source: patient Mode of arrival: ambulatory Limitations: no limitations History of Present Illness HPI narrative: 35 y/o female with history of mild intermittent asthma and history of gastric sleeve [address] Flynn who presents to the ER with central abdominal pain and nausea & vomiting since 11am today. She called Dr. Flynn who instructed her to come to the ER for further evaluation. She reports aching and burning pain every time she tries drinking her protein shakes. She vomited the last 3 times she tried to drink. She denies blood in her vomit. No diarrhea, last BM yesterday and was normal. No fever, chills, or urinary symptoms. Denies chance of pregnnacy. MD elicited complaint: abdominal pain Onset (ago): hour(s) Pain Consistency: constant Location: epigastric and periumbilical Severity: moderate Pain scale (0-10): 5 Quality: aching and dull Radiation: none Migration to: no migration Exacerbating factors: eating Relieving factors: vomiting Associated symptoms: nausea and vomiting Related Data Previous Rx's Medication Instructions Recorded clotrimazole 1 % topical cream 1 appl TOPICAL BID #45 g 10/11/20 ondansetron 4 mg PO Q8H PRN #10 tab 10/24/20 Allergies Allergy/AdvReac Type Severity Reaction Status Date / Time Seafood Allergy Severe HIVES/SWELL Uncoded 10/24/20 19:00 ING Review of Systems Review of Systems Constitutional: No Fever, No Chills ENT/Mouth: No sore throat, No Rhinorrhea, No Swallowing Difficulty Cardiovascular: No Chest Pain, No SOB Respiratory: No Cough, No Sputum Gastrointestinal: + Nausea, + Vomiting, No Diarrhea, + abdominal Pain, No Hematochezia, No Melena Genitourinary: No Dysuria, No Urinary Frequency, No Hematuria Musculoskeletal: No joint pain, No Myalgias Skin: No Skin Lesions, No rash Neuro: No Weakness, No Numbness, No Dizziness, + Headache Psych: No Anxiety/Panic, No Depression Heme/Lymph: No Bruising, No Lymphadenopathy Physical Exam Vital Signs: Vital Signs: Last Vital Signs Temp 98.0 F 10/24/20 19:00 Pulse 69 10/24/20 19:00 Resp 19 10/24/20 19:00 BP 126/71 10/24/20 19:00 Pulse Ox 98 10/24/20 19:00 Body Mass Index 26.1 Appearance: Alert. Oriented X3. No acute distress. Eyes: Pupils equal, round and reactive to light. ENT: Pharynx normal. Neck: Normal inspection. Neck supple. CVS: Normal heart rate and rhythm. Pulses normal. Respiratory: No respiratory distress. Breath sounds normal. Abdomen: Obese, soft, no distention, no tympany to percussion, mild tenderness with deep palpation of the periumbilical area. +BS x4 Skin: Skin warm and dry. Normal skin color. Normal skin turgor. No rashes. Extremities: No lower extremity edema. Neuro: Oriented X 3. No motor deficit. No sensory deficit. Course Course Course Narrative: 35 y/o female with recent gastric sleeve presenting with central abdominal pain and N/V that started today. Will get labs and CT scan for further evaluation. IVF and IV zofran ordered. No vomiting in the ER as of yet. Resting comfortably and VS are stabe. Reevaluation(s) Reevaluation #1: Lab workup is unremarkable. No vomiting. Improved nausea with Zofran. Ct scan is pending. is negative. Reevaluation #2: CT scan is normal, no acute findings. She was given PO and is tolerating well. No vomiting. UA negative. She is stable for discharge home with PRN Zofran and follow up with her PCP and Dr. Flynn. MDM - Abdominal Pain Lab Data Result diagrams: 10/24/20 19:50 10/24/20 19:50 Labs: Lab Results 10/24/20 10/24/20 10/24/20 Range/Units 19:50 19:50 19:50 WBC 10.5 (4.8-10.8) X10*3/uL RBC 4.69 (4.20-5.50) X10*6/uL Hgb 13.6 (12.0-16.0) g/dl Hct 41.7 (37-47) % MCV 88.9 (80-98) fL MCH 29.0 (27.0-33.0) pg MCHC 32.6 (31.0-35.0) g/dl RDW 13.4 (11.0-16.0) % Plt Count 214 (160-400) X10*3/uL MPV Not Reportable Immature Gran % (Auto) 0.3 (0.0-0.4) % Neut % (Auto) 75.8 H (45-73) % Lymph % (Auto) 18.2 L (20-40) % [place] % (Auto) 5.3 (2-11) % Eos % (Auto) 0.2 (0-4) % Baso % (Auto) 0.2 (0-2) % Lymph # (Auto) 1.9 (1.2-4.9) X10*3/uL [place] # (Auto) 0.6 (0.1-1.2) X10*3/uL Eos # (Auto) 0.0 (0.0-0.4) X10*3/uL Baso # (Auto) 0.0 (0.0-0.2) X10*3/uL Abs Immat Gran (auto) 0.03 (0.00-0.03) X10*3/uL Absolute Neuts (auto) 8.0 (2.0-8.3) X10*3/uL Absolute Nucleated RBC 0.000 (0.0-0.012) X10*3/uL Nucleated RBC % (auto) 0.0 (0.0-0.2) /100WBC Sodium 140 (135-145) mmol/L Potassium 4.2 (3.3-5.1) mmol/L Chloride 105 (96-108) mmol/L Carbon Dioxide 26 (22-29) mmol/L Anion Gap 13 (12-20) BUN 8 L (9-16) mg/dL Creatinine 0.74 (0.5-1.4) mg/dL Estim Creat Clear Calc 106.8 Estimated GFR > 60 Random Glucose 99 (60-115) mg/dL Calcium 9.5 D (8.4-10.2) mg/dL Magnesium 1.9 (1.6-2.6) mg/dL Total Bilirubin 0.6 (0.0-1.0) mg/dL Direct Bilirubin 0.3 (0.0-0.5) mg/dL AST 12 D (5-31) U/L ALT 10 (0-31) U/L Alkaline Phosphatase 57 (39-117) U/L Total Protein 7.5 (6.5-8.0) g/dL Albumin 3.8 (3.5-5.0) g/dL Lipase 12 (8-78) U/L Beta HCG, Quant mIU/mL Urine Color Urine Appearance Urine pH (5.0-8.0) Ur Specific [place] (1.005-1.025) Urine Protein (NEG-TRACE) MG/DL Urine Glucose (UA) (NEG) MG/DL Urine Ketones (NEG) MG/DL Urine Blood (NEG) Urine Nitrite (NEG) Ur Leukocyte Esterase (NEG) COVID-19 (FIDELINA) Negative (Negative) COVID-19 Clin Com See Note 10/24/20 10/24/20 Range/Units 19:50 23:11 WBC (4.8-10.8) X10*3/uL RBC (4.20-5.50) X10*6/uL Hgb (12.0-16.0) g/dl Hct (37-47) % MCV (80-98) fL MCH (27.0-33.0) pg MCHC (31.0-35.0) g/dl RDW (11.0-16.0) % Plt Count (160-400) X10*3/uL MPV Immature Gran % (Auto) (0.0-0.4) % Neut % (Auto) (45-73) % Lymph % (Auto) (20-40) % [place] % (Auto) (2-11) % Eos % (Auto) (0-4) % Baso % (Auto) (0-2) % Lymph # (Auto) (1.2-4.9) X10*3/uL [place] # (Auto) (0.1-1.2) X10*3/uL Eos # (Auto) (0.0-0.4) X10*3/uL Baso # (Auto) (0.0-0.2) X10*3/uL Abs Immat Gran (auto) (0.00-0.03) X10*3/uL Absolute Neuts (auto) (2.0-8.3) X10*3/uL Absolute Nucleated RBC (0.0-0.012) X10*3/uL Nucleated RBC % (auto) (0.0-0.2) /100WBC Sodium (135-145) mmol/L Potassium (3.3-5.1) mmol/L Chloride (96-108) mmol/L Carbon Dioxide (22-29) mmol/L Anion Gap (12-20) BUN (9-16) mg/dL Creatinine (0.5-1.4) mg/dL Estim Creat Clear Calc Estimated GFR Random Glucose (60-115) mg/dL Calcium (8.4-10.2) mg/dL Magnesium (1.6-2.6) mg/dL Total Bilirubin (0.0-1.0) mg/dL Direct Bilirubin (0.0-0.5) mg/dL AST (5-31) U/L ALT (0-31) U/L Alkaline Phosphatase (39-117) U/L Total Protein (6.5-8.0) g/dL Albumin (3.5-5.0) g/dL Lipase (8-78) U/L Beta HCG, Quant < 2 mIU/mL Urine Color YELLOW Urine Appearance CLEAR Urine pH 7.0 (5.0-8.0) Ur Specific [place] 1.020 (1.005-1.025) Urine Protein NEG (NEG-TRACE) MG/DL Urine Glucose (UA) NEG (NEG) MG/DL Urine Ketones >=80 (NEG) MG/DL Urine Blood NEG (NEG) Urine Nitrite NEG (NEG) Ur Leukocyte Esterase NEG (NEG) COVID-19 (FIDELINA) (Negative) COVID-19 Clin Com Critical Care Time Critical Care Time Critical Care Time: No Discharge Plan Discharge Clinical Impression: Gastroenteritis Patient Disposition: Home, Self-Care Instructions: Gastroenteritis (ED) Additional Instructions: Your lab workup today was normal. Your CT scan was normal. Recommend rest and staying hydrated. Stick to a bland diet while you are not feeling well. Take the prescribed medication as needed for nausea. Follow up with your doctor as needed. Follow up with Dr. Flynn tomorrow. If you develop new or worsening symptoms call 911 or come back to the ER for further evaluation. Prescriptions: New ondansetron 4 mg tablet,disintegrating 4 mg PO Q8H PRN (Reason: nausea and vomiting) Qty: 10 RF: 0 No Action clotrimazole 1 % cream 1 appl topical BID Qty: 45 RF: 2 Referrals: Selena Flynn MD [Physician] - 2 days PMF Past Medical History Attestation statement: The following information was validated with the patient. Medical History Adjustment disorder, unspecified Asthma BMI 25.0-25.9,adult BMI 26.0-26.9,adult BMI 33.0-33.9,adult BMI 34.0-34.9,adult BMI 35.0-35.9,adult BMI 39.0-39.9,adult BMI 40.0-44.9, adult Gastritis Migraine Morbid (severe) obesity due to excess calories MRAYANA on CPAP Overweight (BMI 25.0-29.9) Prediabetes Preoperative examination Shortness of breath Sleep apnea Vitamin A deficiency Vitamin B1 deficiency Vitamin D deficiency Surgical History H/O left knee surgery History of bilateral tubal ligation History of repair of hiatal hernia Hx laparoscopic cholecystectomy Hx of colonoscopy Normal endoscopy S/P laparoscopic sleeve gastrectomy Family History Family History Father Hypertension Heart problem Vertigo Mother Dementia Alzheimer disease Pneumathemia Sister Depressed Hypertension Anxiety History of gastric surgery Sister Diabetes mellitus Hypertension Depressed Anxiety Brother No problems noted. Brother No problems noted. Son Asthma Diabetes mellitus Obese abdomen Daughter Asthma Social History Social History Are you a primary home care associate to a significant other at home: No Do you presently have visiting nurse or other home services: No Alcohol intake: never Patient Tobacco Use Status: Never used Tobacco Advance Directives: No Advance Directives Information Provided: No Patient : No service: No Current occupational status: unemployed
[2020-10-24 20:14] LABS: Basophils Percent Auto 0.2 % (0-2); Hemoglobin 13.6 g/dl (12.0-16.0); Imm Gran Abs Auto 0.03 X10*3/uL (0.00-0.03); Imm Gran Pct Auto 0.3 % (0.0-0.4); Lymphocytes Percent Auto 18.2 % (20-40); SCAN SMEAR FLAG 1
[2020-10-24 20:16] LABS: Eosinophils Percent Auto 0.2 % (0-4); Hematocrit 41.7 % (37-47); Lymphocytes Absolute Auto 1.9 X10*3/uL (1.2-4.9); Mean Corpuscular HGB Conc 32.6 g/dl (31.0-35.0); Mean Corpuscular Volume 88.9 fL (80-98); Monocytes Absolute Auto 0.6 X10*3/uL (0.1-1.2); Monocytes Percent Auto 5.3 % (2-11); Neutrophils Percent Auto 75.8 % (45-73); PLT ABN DIST 1; Platelet Count 214 X10*3/uL (160-400); Red Blood Count 4.69 X10*6/uL (4.20-5.50); Red Cell Distribution Width 13.4 % (11.0-16.0); White Blood Count 10.5 X10*3/uL (4.8-10.8)
[2020-10-24 20:18] LABS: MANUAL DIFF FLAG NO
[2020-10-24 20:36] LABS: COVID-19 Test Negative (Negative)
[2020-10-24 20:38] LABS: Alanine Aminotransferase 10 U/L (0-31); Albumin Level 3.8 g/dL (3.5-5.0); Alkaline Phosphatase 57 U/L (39-117); Anion Gap 13 (12-20); Aspartate Amino Transferase 12 U/L (5-31); Bilirubin Direct 0.3 mg/dL (0.0-0.5); Bilirubin Total 0.6 mg/dL (0.0-1.0); Blood Urea Nitrogen 8 mg/dL (9-16); Calcium 9.5 mg/dL (8.4-10.2); Carbon Dioxide 26 mmol/L (22-29); Chloride 105 mmol/L (96-108); Creatinine Clr Calc Pharmacy 106.8; Estimated Glomerular Filt Rate > 60; Glucose Random 99 mg/dL (60-115); Lipase 12 U/L (8-78); Magnesium 1.9 mg/dL (1.6-2.6); Potassium 4.2 mmol/L (3.3-5.1); Sodium 140 mmol/L (135-145); Total Protein 7.5 g/dL (6.5-8.0)
[2020-10-24 20:39] LABS: HCG Quantitative < 2 mIU/mL
[2020-10-24] MEDS: 0.9 % Sodium Chloride 1,000 ML 999 ML IVCONT (20:43)
[2020-10-24] MEDS: ondansetron HCL 4 MG/2 ML VIAL IVPUSH (20:44)
[2020-10-24 23:22] LABS: Appearance Urine CLEAR; Color Urine YELLOW; Glucose Urine UA NEG (NEG); Leukocyte Esterase Urine NEG (NEG); Nitrite Urine NEG (NEG); UACC Culture Trigger NO; Urine Blood NEG (NEG); Urine Ketones >=80 MG/DL (NEG); Urine Protein NEG (NEG-TRACE)
[2020-10-24 23:43] LABS: Amphetamine Screen Urine Not Detected (Not Detect); Barbiturates, Urine Not Detected (Not Detect); Benzodiazepines Screen Urine Not Detected (Not Detect); Cannabinoid Screen Urine Not Detected (Not Detect); Cocaine Screen Urine Not Detected (Not Detect); Opiate Screen Urine Not Detected (Not Detect); Phencyclidine Screen Urine Not Detected (Not Detect)
== END 2020-10-24 23:10 | disposition home or self-care (01) ==
PROVIDERS: Physician Assistant; Emergency Provider Emergency Medicine
DX: K52.9 Noninfective gastroenteritis and colitis, unspecified (principal); J45.20 Mild intermittent asthma, uncomplicated; Z98.84 Bariatric surgery status; Z20.822 Contact with and (suspected) exposure to COVID-19
CPT/HCPCS: 36415; 74176; 80048; 80076; 80307; 81003; 83690; 83735; 84702; 85025; 87635; 96361; 96374; 99283; 99284; J2405

== ENCOUNTER → 2020-11-29 15:46 | Outpatient (BNVA) | payer OTHER, SELFPAY | PROVIDERS: PCP Nurse Practitioner Family; Visit Provider Physician Assistant | DX: E66.01 Morbid (severe) obesity due to excess calories (principal); G47.33 Obstructive sleep apnea (adult) (pediatric); R73.03 Prediabetes; E50.9 Vitamin A deficiency, unspecified; E51.9 Thiamine deficiency, unspecified; E55.9 Vitamin D deficiency, unspecified; Z68.25 Body mass index [BMI] 25.0-25.9, adult; Z90.3 Acquired absence of stomach [part of]; Z91.013 Allergy to seafood; Z99.89 Dependence on other enabling machines and devices | CPT/HCPCS: 99212 ==

== ENCOUNTER 2020-12-28 11:36 | Emergency (ER) | payer OTHER, SELFPAY ==
[2020-12-28 11:43] VITALS: BP 113/75; PULSE 71; RESP 16; TEMP 36.2; O2SAT 98; BMI 24.5
[2020-12-28 12:26] LABS: Basophils Percent Auto 0.1 % (0-2); Eosinophils Absolute Auto 0.1 X10*3/uL (0.0-0.4); Eosinophils Percent Auto 1.6 % (0-4); Hematocrit 40.7 % (37-47); Hemoglobin 13.2 g/dl (12.0-16.0); Imm Gran Abs Auto 0.02 X10*3/uL (0.00-0.03); Imm Gran Pct Auto 0.3 % (0.0-0.4); Lymphocytes Absolute Auto 2.7 X10*3/uL (1.2-4.9); Lymphocytes Percent Auto 35.6 % (20-40); MANUAL DIFF FLAG NO; Mean Corpuscular HGB Conc 32.4 g/dl (31.0-35.0); Mean Corpuscular Volume 89.5 fL (80-98); Mean Platelet Volume 12.4 fL (9.4-12.3); Monocytes Absolute Auto 0.5 X10*3/uL (0.1-1.2); Monocytes Percent Auto 6.7 % (2-11); Neutrophils Absolute Auto 4.1 X10*3/uL (2.0-8.3); Neutrophils Percent Auto 55.7 % (45-73); Platelet Count 238 X10*3/uL (160-400); Red Blood Count 4.55 X10*6/uL (4.20-5.50); Red Cell Distribution Width 12.6 % (11.0-16.0); White Blood Count 7.4 X10*3/uL (4.8-10.8)
[2020-12-28 12:36] LABS: Appearance Urine HAZY; Color Urine YELLOW; Glucose Urine UA NEG (NEG); Leukocyte Esterase Urine NEG (NEG); Nitrite Urine NEG (NEG); Urine Blood NEG (NEG); Urine Ketones 5 MG/DL (NEG); Urine Protein TRACE MG/DL (NEG-TRACE)
[2020-12-28 12:37] LABS: UPreg QC Valid YES; Urine Pregnancy NEGATIVE (NEGATIVE)
[2020-12-28 12:45] LABS: Alanine Aminotransferase 6 U/L (0-31); Albumin Level 3.7 g/dL (3.5-5.0); Alkaline Phosphatase 57 U/L (39-117); Anion Gap 10 (12-20); Aspartate Amino Transferase 10 U/L (5-31); Bilirubin Total 0.8 mg/dL (0.0-1.0); Blood Urea Nitrogen 7 mg/dL (9-16); Calcium 9.4 mg/dL (8.4-10.2); Carbon Dioxide 28 mmol/L (22-29); Chloride 106 mmol/L (96-108); Creatinine Clr Calc Pharmacy 107.6; Estimated Glomerular Filt Rate > 60; Glucose Random 82 mg/dL (60-115); Lipase 19 U/L (8-78); Sodium 140 mmol/L (135-145); Total Protein 6.9 g/dL (6.5-8.0)
== END 2020-12-28 14:00 | disposition left against medical advice (07) ==
PROVIDERS: Emergency Provider Emergency Medicine; PCP Nurse Practitioner Family
DX: R10.9 Unspecified abdominal pain (principal); R51.9 Headache, unspecified; Z79.899 Other long term (current) drug therapy
CPT/HCPCS: 36415; 80053; 81003; 81025; 83690; 85025; 99283

== ENCOUNTER → 2021-01-16 09:49 | Outpatient (BNVA) | payer OTHER, SELFPAY | PROVIDERS: PCP Nurse Practitioner Family; Referring Provider Nurse Practitioner Family; Visit Provider Surgery | DX: Z01.818 Encounter for other preprocedural examination (principal); K21.9 Gastro-esophageal reflux disease without esophagitis; Z98.84 Bariatric surgery status; Z98.890 Other specified postprocedural states; Z87.19 Personal history of other diseases of the digestive system | CPT/HCPCS: 99212 ==

== ENCOUNTER → 2021-02-14 08:03 | Outpatient (BNVA) | payer OTHER, SELFPAY | PROVIDERS: PCP Nurse Practitioner Family; Visit Provider Dietitian, Registered | DX: E66.9 Obesity, unspecified (principal); Z98.84 Bariatric surgery status; Z68.23 Body mass index [BMI] 23.0-23.9, adult | CPT/HCPCS: 97803 ==

== ENCOUNTER 2021-03-16 20:25 | Emergency (ER) | payer OTHER, SELFPAY ==
--- NOTE | ~2021-03-16 | CT_ITS ---
EXAMINATION: CT ABDOMEN AND PELVIS WITHOUT CONTRAST CLINICAL INFORMATION: Left flank pain with history of stones COMPARISON: 10/24/2020 TECHNIQUE: Multidetector volumetric imaging was performed from the superior aspect of the liver through the pubic symphysis. Sagittal and coronal reformatted images were obtained on the technologist's workstation. This CT examination was performed using dose optimization techniques as appropriate, variously including the following: *Automated exposure control *Adjustment of mA and/or kV according to patient size (this includes techniques or standardized protocols for targeted exams where dose is matched to indication/reason for exam; i.e. extremities or head) *Use of iterative reconstruction technique DLP: 601 mGy-cm FINDINGS: LUNG BASES: The visualized lung bases are unremarkable. LIVER, GALLBLADDER, AND BILIARY TREE: The liver is normal in size, shape, and attenuation. No focal hepatic lesion or biliary ductal dilatation is present. Patient is status post cholecystectomy. PANCREAS: Unremarkable. SPLEEN: Unremarkable. ADRENAL GLANDS: Unremarkable. KIDNEYS AND URETERS: The kidneys are normal in size, shape, and attenuation. No hydronephrosis, hydroureter, or calculi seen. No perinephric stranding. BLADDER: Minimally distended and grossly unremarkable. GASTROINTESTINAL TRACT: Suture line is present along the stomach in keeping with sleeve gastrectomy. No evidence of bowel obstruction. No significant bowel wall thickening or pericolonic inflammation. The appendix is unremarkable. No free fluid or free air is seen. ABDOMINAL WALL: No significant hernia is appreciated. LYMPH NODES: Normal. VASCULAR: Unremarkable. PELVIC VISCERA: Unremarkable. OSSEOUS STRUCTURES: Unremarkable. CT/CT abdomen pelvis wo con IMPRESSION: No acute findings identified in the abdomen/pelvis. No hydronephrosis or obstructing calculus. Fleischner guidelines were followed.
[2021-03-16 20:35] VITALS: BP 109/72; PULSE 84; RESP 15; TEMP 36.8; O2SAT 98; BMI 25.0
--- NOTE | 2021-03-16 21:59 | ED.BACK ---
HPI - Back Pain/Injury General Chief Complaint: Back Pain/Injury Stated Complaint: lower back pain hx of kidney stone Time Seen by Provider: 03/16/21 21:59 Source: patient Mode of arrival: ambulatory Limitations: no limitations History of Present Illness HPI Narrative: Patient with history of remote kidney stone years ago history of chronic back pain complaining of pain in left flank area for last 1 week hurt worse today slight nausea no vomiting no hematuria and pain radiating to the left lower quadrant no fever no chills no cough his symptoms Related Data Home Medications Medication Instructions Recorded Confirmed calcium citrate 1,000 mg tablet 1,000 mg PO DAILY 01/16/21 01/16/21 Previous Rx's Medication Instructions Recorded ondansetron 4 mg disintegrating 4 mg PO Q8H PRN #10 tab 10/24/20 tablet cyclobenzaprine 10 mg tablet 10 mg PO Q8H #20 tab 03/16/21 tramadol 50 mg tablet 50 mg PO Q6H PRN #20 tab 03/16/21 Allergies Allergy/AdvReac Type Severity Reaction Status Date / Time Seafood Allergy Severe HIVES/SWELL Uncoded 10/24/20 19:00 ING Review of Systems Review of Systems: Yes all other systems are reviewed and are negative PMFSH Past Medical History Medical History Adjustment disorder, unspecified Asthma BMI 25.0-25.9,adult BMI 26.0-26.9,adult BMI 33.0-33.9,adult BMI 34.0-34.9,adult BMI 35.0-35.9,adult BMI 39.0-39.9,adult BMI 40.0-44.9, adult Gastritis Migraine Morbid (severe) obesity due to excess calories MARYANA on CPAP Overweight (BMI 25.0-29.9) Prediabetes Preoperative examination Shortness of breath Sleep apnea Vitamin A deficiency Vitamin B1 deficiency Vitamin D deficiency Surgical History H/O left knee surgery History of bilateral tubal ligation History of repair of hiatal hernia Hx laparoscopic cholecystectomy Hx of colonoscopy Normal endoscopy S/P laparoscopic sleeve gastrectomy Family History Family History Father Hypertension Heart problem Vertigo Mother Dementia Alzheimer disease Pneumathemia Sister Depressed Hypertension Anxiety History of gastric surgery Sister Diabetes mellitus Hypertension Depressed Anxiety Brother No problems noted. Brother No problems noted. Son Asthma Diabetes mellitus Obese abdomen Daughter Asthma Social History Social History Are you a primary vision care associate to a significant other at home: No Do you presently have visiting nurse or other home services: No Alcohol intake: never Patient Tobacco Use Status: Never used Tobacco Advance Directives: No Patient : No service: No Current occupational status: unemployed Physical Exam Vital Signs: Vital Signs: Last Vital Signs Temp 98.3 F 03/16/21 23:10 Pulse 68 03/16/21 23:10 Resp 18 03/16/21 23:10 BP 109/68 03/16/21 23:10 Pulse Ox 100 03/16/21 23:10 Body Mass Index 25.0 Appearance: Alert. Oriented X3. No acute distress. Eyes: PERRLA, No Nystagmus ENT: Pharynx normal. Oral Mucosa moist Neck: Normal inspection. Neck supple. CVS: Normal heart rate and rhythm. Pulses normal. Respiratory: No respiratory distress. Equal air entry bilateral, no wheezing/rales/rhonchi Abdomen: Soft and nontender. Bowel sounds are present, no mass palpable,L CVA tenderness++ back: No focal spinal tenderness secral sensations intact Skin: Skin warm and dry. Normal skin color. Normal skin turgor. Extremities: No lower extremity edema. No calf tenderness straight leg raising test is negative bilateral Neuro: Oriented X 3. No motor deficit. No sensory deficit. MDM - Back Pain/Injury MDM Narrative Medical decision making narrative: Patient with left flank and lower back pain with history of kidney stone and back problems CT scan is negative for any kidney stone urine is also negative lab stable patient pain likely musculoskeletal discharge patient home Lab Data Attestation: I reviewed the patient's lab results. Result diagrams: 03/16/21 22:15 03/16/21 22:15 Labs: Lab Results 03/16/21 03/16/21 03/16/21 Range/Units 22:15 22:15 22:15 WBC 10.4 (4.8-10.8) X10*3/uL RBC 4.24 (4.20-5.50) X10*6/uL Hgb 12.5 (12.0-16.0) g/dl Hct 38.6 (37.0-47.0) % MCV 91.0 (80.0-98.0) fL MCH 29.5 (27.0-33.0) pg MCHC 32.4 (31.0-35.0) g/dl RDW 12.6 (11.0-16.0) % Plt Count 264 (160-400) X10*3/uL MPV 11.6 (9.4-12.3) fL Immature Gran % (Auto) 0.4 (0.0-0.4) % Neut % (Auto) 55.3 (45-73) % Lymph % (Auto) 35.4 (20-40) % [place] % (Auto) 7.4 (2-11) % Eos % (Auto) 1.4 (0-4) % Baso % (Auto) 0.1 (0-2) % Lymph # (Auto) 3.7 (1.2-4.9) X10*3/uL [place] # (Auto) 0.8 (0.1-1.2) X10*3/uL Eos # (Auto) 0.1 (0.0-0.4) X10*3/uL Baso # (Auto) 0.0 (0.0-0.2) X10*3/uL Abs Immat Gran (auto) 0.04 H (0.00-0.03) X10*3/uL Absolute Neuts (auto) 5.7 (2.0-8.3) x10*3/uL Absolute Nucleated RBC 0.000 (0.0-0.012) X10*3/uL Nucleated RBC % (auto) 0.0 (0.0-0.2) /100WBC Sodium 141 (135-145) mmol/L Potassium 3.8 (3.3-5.1) mmol/L Chloride 107 (96-108) mmol/L Carbon Dioxide 27 (22-29) mmol/L Anion Gap 11 L (12-20) BUN 6 L (9-16) mg/dL Creatinine 0.71 (0.5-1.4) mg/dL Estim Creat Clear Calc 101.5 Estimated GFR > 60 Random Glucose 93 (60-115) mg/dL Calcium 9.1 (8.4-10.2) mg/dL Urine Color YELLOW Urine Appearance HAZY Urine pH 8.0 (5.0-8.0) Ur Specific [place] 1.020 (1.005-1.025) Urine Protein NEG (NEG-TRACE) MG/DL Urine Glucose (UA) NEG (NEG) MG/DL Urine Ketones NEG (NEG) MG/DL Urine Blood NEG (NEG) Urine Nitrite NEG (NEG) Ur Leukocyte Esterase NEG (NEG) Urine Test (NEGATIVE) 03/16/21 Range/Units 22:15 WBC (4.8-10.8) X10*3/uL RBC (4.20-5.50) X10*6/uL Hgb (12.0-16.0) g/dl Hct (37.0-47.0) % MCV (80.0-98.0) fL MCH (27.0-33.0) pg MCHC (31.0-35.0) g/dl RDW (11.0-16.0) % Plt Count (160-400) X10*3/uL MPV (9.4-12.3) fL Immature Gran % (Auto) (0.0-0.4) % Neut % (Auto) (45-73) % Lymph % (Auto) (20-40) % [place] % (Auto) (2-11) % Eos % (Auto) (0-4) % Baso % (Auto) (0-2) % Lymph # (Auto) (1.2-4.9) X10*3/uL [place] # (Auto) (0.1-1.2) X10*3/uL Eos # (Auto) (0.0-0.4) X10*3/uL Baso # (Auto) (0.0-0.2) X10*3/uL Abs Immat Gran (auto) (0.00-0.03) X10*3/uL Absolute Neuts (auto) (2.0-8.3) x10*3/uL Absolute Nucleated RBC (0.0-0.012) X10*3/uL Nucleated RBC % (auto) (0.0-0.2) /100WBC Sodium (135-145) mmol/L Potassium (3.3-5.1) mmol/L Chloride (96-108) mmol/L Carbon Dioxide (22-29) mmol/L Anion Gap (12-20) BUN (9-16) mg/dL Creatinine (0.5-1.4) mg/dL Estim Creat Clear Calc Estimated GFR Random Glucose (60-115) mg/dL Calcium (8.4-10.2) mg/dL Urine Color Urine Appearance Urine pH (5.0-8.0) Ur Specific [place] (1.005-1.025) Urine Protein (NEG-TRACE) MG/DL Urine Glucose (UA) (NEG) MG/DL Urine Ketones (NEG) MG/DL Urine Blood (NEG) Urine Nitrite (NEG) Ur Leukocyte Esterase (NEG) Urine Test NEGATIVE (NEGATIVE) Discharge Plan Discharge Clinical Impression: Back pain Qualifiers: Back pain location: low back pain Chronicity: unspecified Back pain laterality: left Sciatica presence: without sciatica Qualified Code(s): M54.50 - Low back pain, unspecified Patient Disposition: Home, Self-Care Instructions: Acute Low Back Pain (ED) Additional Instructions: Rest at home take pain medication and muscle relaxant as advised Prescriptions: New cyclobenzaprine 10 mg tablet 10 mg PO Q8H Qty: 20 RF: 0 tramadol 50 mg tablet 50 mg PO Q6H PRN (Reason: pain) Qty: 20 RF: 0 No Action ondansetron 4 mg tablet,disintegrating 4 mg PO Q8H PRN (Reason: nausea and vomiting) Qty: 10 RF: 0 calcium citrate 1,000 mg tablet 1,000 mg PO DAILY RF: 0 Interventions: ED Discharge Assessment Last Done: 03/16/21 23:48 Discharge Date/Time: 03/16/21 23:48
[2021-03-16 22:00] VITALS: BP 142/90; PULSE 76; RESP 20; O2SAT 99
[2021-03-16 22:20] LABS: MANUAL DIFF FLAG NO
[2021-03-16 22:21] LABS: Appearance Urine HAZY; Basophils Percent Auto 0.1 % (0-2); Color Urine YELLOW; Eosinophils Absolute Auto 0.1 X10*3/uL (0.0-0.4); Eosinophils Percent Auto 1.4 % (0-4); Glucose Urine UA NEG (NEG); Hematocrit 38.6 % (37.0-47.0); Hemoglobin 12.5 g/dl (12.0-16.0); Imm Gran Abs Auto 0.04 X10*3/uL (0.00-0.03); Imm Gran Pct Auto 0.4 % (0.0-0.4); Leukocyte Esterase Urine NEG (NEG); Lymphocytes Absolute Auto 3.7 X10*3/uL (1.2-4.9); Lymphocytes Percent Auto 35.4 % (20-40); Mean Corpuscular HGB Conc 32.4 g/dl (31.0-35.0); Mean Corpuscular Hemoglobin 29.5 pg (27.0-33.0); Mean Platelet Volume 11.6 fL (9.4-12.3); Monocytes Absolute Auto 0.8 X10*3/uL (0.1-1.2); Monocytes Percent Auto 7.4 % (2-11); Neutrophils Absolute Auto 5.7 x10*3/uL (2.0-8.3); Neutrophils Percent Auto 55.3 % (45-73); Nitrite Urine NEG (NEG); Platelet Count 264 X10*3/uL (160-400); Red Blood Count 4.24 X10*6/uL (4.20-5.50); Red Cell Distribution Width 12.6 % (11.0-16.0); Urine Blood NEG (NEG); Urine Ketones NEG (NEG); Urine Protein NEG (NEG-TRACE); White Blood Count 10.4 X10*3/uL (4.8-10.8)
[2021-03-16 22:25] LABS: UPreg QC Valid YES; Urine Pregnancy NEGATIVE (NEGATIVE)
[2021-03-16] MEDS: 0.9 % Sodium Chloride 1,000 ML 999 ML IVCONT (22:28)
[2021-03-16] MEDS: ondansetron HCL 4 MG/2 ML VIAL IVPUSH (22:30)
[2021-03-16] MEDS: Morphine Sulfate 4 MG/ML CARTRIDGE IVPUSH (22:30)
[2021-03-16 22:37] LABS: Anion Gap 11 (12-20); Blood Urea Nitrogen 6 mg/dL (9-16); Calcium 9.1 mg/dL (8.4-10.2); Carbon Dioxide 27 mmol/L (22-29); Chloride 107 mmol/L (96-108); Creatinine Clr Calc Pharmacy 101.5; Estimated Glomerular Filt Rate > 60; Glucose Random 93 mg/dL (60-115); Potassium 3.8 mmol/L (3.3-5.1); Sodium 141 mmol/L (135-145)
[2021-03-16] MEDS: diphenhydrAMINE HCL 50 MG/ML VIAL 25 MG IVPUSH (22:55)
[2021-03-16 23:10] VITALS: BP 109/68; PULSE 68; RESP 18; TEMP 36.8; O2SAT 100
== END 2021-03-16 23:48 | disposition home or self-care (01) ==
PROVIDERS: Emergency Provider Internal Medicine
DX: M54.50 Low back pain, unspecified (principal); Z87.442 Personal history of urinary calculi
CPT/HCPCS: 36415; 74176; 80048; 81003; 81025; 85025; 96361; 96374; 96375; 99284; J1200; J2270; J2405

== ENCOUNTER 2021-04-16 10:08 | Outpatient (REF) | payer OTHER, SELFPAY ==
[2021-04-16 12:15] LABS: Albumin Level 3.9 g/dL (3.5-5.0); C Reactive Protein 0.12 mg/dL (< or = 0.50); Cholesterol 173 mg/dL; HDL Cholesterol 49 mg/dL; Iron 71 mcg/dL (30-160); LDL Cholesterol Calculated 111 mg/dl; Percent Iron Saturation 24 % (15-50); Total Iron Binding Capacity 293 mcg/dL (228-428); Triglycerides 68 mg/dL; Unsaturated Iron Binding 222 ug/dL
[2021-04-16 12:26] LABS: Vitamin B12 < 146 pg/mL (200-900)
[2021-04-16 12:37] LABS: Thyroid Stimulating Hormone 0.86 uIU/mL (0.32-4.0); Vitamin D 25-OH Total 14.4 ng/mL (>30)
[2021-04-16 12:50] LABS: Estimated Average Glucose 91 mg/dL; Hemoglobin A1c % 4.8 %
[2021-04-19 12:26] LABS: Vitamin B1 9 nmol/L (8-30)
[2021-04-19 16:11] LABS: Zinc 48 mcg/dL (60-130)
[2021-04-24 00:42] LABS: Vitamin A 22 mcg/dL (38-98)
== END 2021-04-16 10:09 | disposition home or self-care (01) ==
LOC: HO.LAB 10:08
PROVIDERS: Absent Provider Surgery; PCP Nurse Practitioner Family; Visit Provider Physician Assistant Surgical
DX: Z01.818 Encounter for other preprocedural examination (principal); E66.3 Overweight; K21.9 Gastro-esophageal reflux disease without esophagitis; Z90.3 Acquired absence of stomach [part of]
CPT/HCPCS: 36415; 80061; 82040; 82306; 82607; 83036; 83540; 84425; 84443; 84590; 84630; 86140; 99212

== ENCOUNTER 2021-06-11 09:15 | Outpatient (REF) | payer OTHER, SELFPAY ==
[2021-06-12 11:17] LABS: BV Int Neg Control Negative (Negative); BV Int Pos Control Positive (Positive)
[2021-06-12 12:09] LABS: CT PCR NOT DETECTED (Not Detect.); NG PCR NOT DETECTED (Not Detect.)
[2021-06-13 23:41] LABS: HPV mRNA E6/E7 rflx Not Detected (Not Detected)
== END 2021-06-11 09:16 | disposition home or self-care (01) ==
LOC: HO.LAB 09:15
PROVIDERS: Visit Provider Advanced Practice Midwife
DX: Z01.419 Encounter for gynecological examination (general) (routine) without abnormal findings (principal); Z11.51 Encounter for screening for human papillomavirus (HPV); Z20.2 Contact with and (suspected) exposure to infections with a predominantly sexual mode of transmission
CPT/HCPCS: 87480; 87491; 87510; 87591; 87624; 87660; 88142

== ENCOUNTER 2021-06-23 17:28 | Emergency (ER) | payer OTHER, SELFPAY | END 2021-06-23 18:34 | disposition left against medical advice (07) | LOC: HO.ED 18:34 | PROVIDERS: Emergency Provider Emergency Medicine; PCP Nurse Practitioner Family | DX: R10.9 Unspecified abdominal pain (principal) ==

== ENCOUNTER 2021-07-16 10:02 | Outpatient (REF) | payer OTHER, SELFPAY ==
[2021-07-16 11:20] LABS: MANUAL DIFF FLAG NO
[2021-07-16 11:58] LABS: Basophils Percent Auto 0.4 % (0-2); Eosinophils Absolute Auto 0.2 X10*3/uL (0.0-0.4); Hematocrit 40.9 % (37.0-47.0); Hemoglobin 13.2 g/dl (12.0-16.0); Imm Gran Abs Auto 0.02 X10*3/uL (0.00-0.03); Imm Gran Pct Auto 0.3 % (0.0-0.4); Lymphocytes Absolute Auto 2.7 X10*3/uL (1.2-4.9); Lymphocytes Percent Auto 35.8 % (20-40); Mean Corpuscular HGB Conc 32.3 g/dl (31.0-35.0); Mean Corpuscular Hemoglobin 29.3 pg (27.0-33.0); Mean Corpuscular Volume 90.9 fL (80.0-98.0); Mean Platelet Volume 12.9 fL (9.4-12.3); Monocytes Absolute Auto 0.6 X10*3/uL (0.1-1.2); Neutrophils Percent Auto 53.5 % (45-73); Platelet Count 247 X10*3/uL (160-400); Red Cell Distribution Width 12.2 % (11.0-16.0); White Blood Count 7.4 X10*3/uL (4.8-10.8)
[2021-07-16 12:20] LABS: Estimated Average Glucose 91 mg/dL; Hemoglobin A1c % 4.8 %
[2021-07-16 12:24] LABS: Anion Gap 9 (12-20); Blood Urea Nitrogen 9 mg/dL (9-16); C Reactive Protein 0.09 mg/dL (< or = 0.50); Calcium 9.1 mg/dL (8.4-10.2); Carbon Dioxide 28 mmol/L (22-29); Chloride 107 mmol/L (96-108); Cholesterol 155 mg/dL; Estimated Glomerular Filt Rate > 60; Glucose Random 81 mg/dL (60-115); HDL Cholesterol 46 mg/dL; Iron 59 mcg/dL (30-160); LDL Cholesterol Calculated 99 mg/dl; Percent Iron Saturation 21 % (15-50); Potassium 4.4 mmol/L (3.3-5.1); Sodium 140 mmol/L (135-145); Total Iron Binding Capacity 277 mcg/dL (228-428); Triglycerides 54 mg/dL; Unsaturated Iron Binding 218 ug/dL
[2021-07-16 12:46] LABS: Ferritin 193 ng/mL (10-122)
[2021-07-16 12:59] LABS: Vitamin B12 < 146 pg/mL (200-900)
[2021-07-17 15:21] LABS: Calcium (PTHI) 9.2 mg/dL (8.6-10.2); PTHI 63 pg/mL (16-77)
[2021-07-20 13:56] LABS: Zinc 43 mcg/dL (60-130)
[2021-07-21 13:11] LABS: Vitamin B1 13 nmol/L (8-30)
[2021-07-23 10:52] LABS: Vitamin A 24 mcg/dL (38-98)
== END 2021-07-16 10:03 | disposition home or self-care (01) ==
LOC: HO.LAB 10:02
PROVIDERS: PCP Nurse Practitioner Family; Referring Provider Nurse Practitioner Family; Visit Provider Physician Assistant Surgical
DX: E66.3 Overweight (principal); K91.2 Postsurgical malabsorption, not elsewhere classified; L98.7 Excessive and redundant skin and subcutaneous tissue; G47.33 Obstructive sleep apnea (adult) (pediatric); E50.9 Vitamin A deficiency, unspecified; E51.9 Thiamine deficiency, unspecified; E55.9 Vitamin D deficiency, unspecified; Z90.3 Acquired absence of stomach [part of]; Z90.49 Acquired absence of other specified parts of digestive tract; Z91.013 Allergy to seafood; Z99.89 Dependence on other enabling machines and devices; Z79.899 Other long term (current) drug therapy
CPT/HCPCS: 36415; 80048; 80061; 82306; 82607; 82728; 82746; 83036; 83540; 83970; 84425; 84443; 84590; 84630; 85025; 86140; 99212

== ENCOUNTER → 2021-10-07 15:01 | Outpatient (BNVA) | payer OTHER, SELFPAY | PROVIDERS: PCP Nurse Practitioner Family; Visit Provider Physician Assistant Surgical | DX: E66.3 Overweight (principal); L98.7 Excessive and redundant skin and subcutaneous tissue; Z68.25 Body mass index [BMI] 25.0-25.9, adult | CPT/HCPCS: 99212 ==

== ENCOUNTER → 2022-01-24 16:30 | Outpatient (BNVA) | payer OTHER, SELFPAY | PROVIDERS: PCP Nurse Practitioner Family; Visit Provider Physician Assistant Surgical | DX: E66.3 Overweight (principal); L98.7 Excessive and redundant skin and subcutaneous tissue; Z98.84 Bariatric surgery status; Z68.26 Body mass index [BMI] 26.0-26.9, adult | CPT/HCPCS: 99212 ==

== ENCOUNTER 2022-02-04 17:02 | Emergency (ER) | payer OTHER, SELFPAY ==
--- NOTE | ~2022-02-04 | XR_ITS ---
EXAMINATION: XR KNEE, LEFT CLINICAL INFORMATION: Fall COMPARISON: X-ray 09/06/2018 TECHNIQUE: Four views of the left knee. FINDINGS: Medially placed plate and screws in the distal femur. Intact hardware. Old healed transverse supracondylar femoral fracture. No visible acute fracture or malalignment. Small suprapatellar joint fluid. XR/XR knee LT 4V IMPRESSION: 1. No radiographic evidence of acute fracture. 2. Old healed supracondylar femoral fracture. 3. Small suprapatellar joint fluid.
[2022-02-04 17:20] VITALS: BP 114/77; PULSE 75; RESP 18; TEMP 36.3; O2SAT 100; BMI 26.4
--- NOTE | 2022-02-04 19:29 | ED_ITS ---
HPI - Fall General Chief Complaint: Fall Stated Complaint: fall left foot pain unable to walk Time Seen by Provider: 02/04/22 19:22 Source: patient Mode of arrival: ambulatory Limitations: no limitations History of Present Illness HPI Narrative: Patient comes to the emergency room complaining of left-sided knee pain. Patient states that she was running up the stairs, it was slippery/wet, Beth on her left knee. Patient states that it has been gotten swollen since then. Patient is able to bear minimal weight. Patient denies hitting her head or losing consciousness, not on blood thinners. Patient states that her right knee also hurts but is very minimal and other than superficial pain she is able to walk within normal limits and poor normal weight on the right side. Related Data Home Medications Medication Instructions Recorded Confirmed calcium citrate 1,000 mg tablet 1,000 mg PO DAILY 01/16/21 01/24/22 [id number] 45 mg-folic cap PO 04/16/21 01/24/22 acid 800 mcg-vit K 120 mcg capsule (Bariatric Multivitamins) Previous Rx's Medication Instructions Recorded ondansetron 4 mg disintegrating 4 mg PO Q8H PRN nausea and 10/24/20 tablet vomiting #10 tabs polyethylene glycol 3350 17 17 g PO DAILY #238 grams 04/01/21 gram/dose oral powder (Miralax) cholecalciferol (vitamin D3) 125 125 mcg PO DAILY #30 caps 04/16/21 mcg (5,000 unit) capsule thiamine HCl (vitamin B1) 100 mg 100 mg PO DAILY #30 tabs 04/20/21 tablet zinc gluconate 10 mg lozenges 10 mg PO DAILY #100 ea 04/20/21 vitamin A palmitate 10,000 unit 10,000 unit PO DAILY #30 caps 04/24/21 capsule clotrimazole 1 % topical cream 1 appl topical BID #45 grams 07/16/21 (Antifungal (clotrimazole)) mecobalamin (vitamin B12) 1,000 1,000 mcg sublingual DAILY #30 tabs 07/16/21 mcg disintegrating tablet,sublingual acetaminophen 500 mg tablet 500 mg PO QID PRN fever or pain 02/04/22 #20 tabs Allergies Allergy/AdvReac Type Severity Reaction Status Date / Time Seafood Allergy Severe HIVES/SWELL Uncoded 06/11/21 09:21 ING Review of Systems Review of Systems: Constitutional : No Weight loss, No Fever, No Chills, No Night Sweats, No Fatigue, No Malaise ENT/Mouth : No Hearing loss, No Ear Pain, No Nasal Congestion, No Sinus Pain, No Hoarseness, No sore throat, No Rhinorrhea, No Swallowing Difficulty Eyes: No Eye Pain, No Swelling, No Redness, No Foreign Body, No Discharge, No Vision Changes Cardiovascular : No Chest Pain, No SOB, No Dyspnea on Exertion, No Orthopnea, No Edema, No Palpitations Respiratory : No Cough, No Sputum, No Wheezing, No Smoke Exposure, No Dyspnea Gastrointestinal : No Nausea, No Vomiting, No Diarrhea, No Constipation, No abdominal Pain, No Hematochezia, No Melena Genitourinary : no irregular bleeding, No Dysuria, No Urinary Frequency, No Hematuria, No Urinary Incontinence, No Urgency, No Flank Pain, No Urinary Flow Changes, No Hesitancy Musculoskeletal complaining of right-sided knee pain, minimal, complaining of le ft-sided pain and swelling, no abrasion laceration Skin : No Skin Lesions, No rash Neuro : No Weakness, No Numbness, No Paresthesias, No Loss of Consciousness, No Dizziness, No Headache Psych : No Anxiety/Panic, No Depression, No SI/HI/AH/VH, No Social Issues, Heme/Lymph: No Bruising, No Bleeding,No Lymphadenopathy Endocrine : No Polyuria, No Polydipsia, No Temperature Intolerance PMFSH Past Medical History Medical History Adjustment disorder, unspecified Asthma BMI 25.0-25.9,adult BMI 26.0-26.9,adult BMI 33.0-33.9,adult BMI 34.0-34.9,adult BMI 35.0-35.9,adult BMI 39.0-39.9,adult BMI 40.0-44.9, adult Gastritis Migraine Morbid (severe) obesity due to excess calories MARYANA on CPAP Overweight (BMI 25.0-29.9) Prediabetes Preoperative examination Shortness of breath Sleep apnea Vitamin A deficiency Vitamin B1 deficiency Vitamin D deficiency Surgical History H/O left knee surgery History of bilateral tubal ligation History of repair of hiatal hernia Hx laparoscopic cholecystectomy Hx of colonoscopy Normal endoscopy S/P laparoscopic sleeve gastrectomy Family History Family History Father Hypertension Heart problem Vertigo Mother Dementia Alzheimer disease Pneumathemia Sister Depressed Hypertension Anxiety History of gastric surgery Sister Diabetes mellitus Hypertension Depressed Anxiety Brother No problems noted. Brother No problems noted. Son Asthma Diabetes mellitus Obese abdomen Daughter Asthma Social History Social History Are you a primary multi care technician to a significant other at home: No Do you presently have visiting nurse or other home services: No Alcohol intake: never Patient Tobacco Use Status: Never used Tobacco service: No Current occupational status: unemployed Physical Exam Vital Signs: Vital Signs: Last Vital Signs Temp 97.4 F 02/04/22 17:20 Pulse 75 02/04/22 17:20 Resp 18 02/04/22 17:20 BP 114/77 02/04/22 17:20 Pulse Ox 100 02/04/22 17:20 O2 Del Method 02/04/22 17:20 BMI result Body Mass Index 26.4 Const: Other: Appearance: Alert. Oriented X3. No acute distress. Eyes: Pupils equal, round and reactive to light. ENT: Pharynx normal. Neck: Normal inspection. Neck supple. No lymph nodes noted. No crepitus CVS: Normal heart rate and rhythm. Pulses normal. Normal S1 and S2 Respiratory: No respiratory distress. Breath sounds normal. No Wheezing. No rales Abdomen: Soft and nontender. No rigidity. No distention. Skin: Skin warm and dry. Normal skin color. Normal skin turgor. Extremities: Right knee within normal limits, normal range of motion. Left knee has a small effusion, no abrasions or lacerations. Neuro: Oriented X 3. No motor deficit. No sensory deficit. Moving all extremities. No slurred speech. CN 2 through 12 grossly intact Psych: calm, cooperative, normal affect Course Course Course Narrative: I discussed the x-ray findings with the patient, no fracture. Patient does have a knee effusion. Patient's knee has been [place] wrap, instructed to ice her knee intermittently. Patient states that she does not need crutches. Patient cannot take ibuprofen, patient has a gastric sleeve surgery Discharge Plan Discharge Clinical Impression: Contusion of left knee, Effusion of knee Patient Disposition: Home, Self-Care Instructions: Knee Pain (ED) Additional Instructions: Please follow-up with your primary care physician tomorrow. If you have any wo rsening or new symptoms, please return to the emergency room or call 911 Prescriptions: New acetaminophen 500 mg tablet 500 mg PO QID PRN (Reason: fever or pain) Qty: 20 0RF No Action polyethylene glycol 3350 [Miralax] 17 gram/dose powder 17 g PO DAILY Qty: 238 0RF cholecalciferol (vitamin D3) 125 mcg (5,000 unit) capsule 125 mcg PO DAILY Qty: 30 3RF zinc gluconate 10 mg lozenge 10 mg PO DAILY Qty: 100 0RF thiamine HCl (vitamin B1) 100 mg tablet 100 mg PO DAILY Qty: 30 2RF vitamin A palmitate 10,000 unit capsule 10,000 unit PO DAILY Qty: 30 2RF mecobalamin (vitamin B12) 1,000 mcg tablet,disintegrating 1,000 mcg sublingual DAILY Qty: 30 3RF Rx Instructions: place tablet under tongue and allow to dissolve for at least30 secs before swallowing ondansetron 4 mg tablet,disintegrating 4 mg PO Q8H PRN (Reason: nausea and vomiting) Qty: 10 0RF Bariatric Multivitamins 45 mg iron- 800 mcg-120 mcg capsule PO calcium citrate 1,000 mg tablet 1,000 mg PO DAILY clotrimazole [Antifungal (clotrimazole)] 1 % cream 1 appl topical BID Qty: 45 0RF Stand Alone Forms: Work/School Release
[2022-02-04 19:36] VITALS: BP 111/79; PULSE 87; RESP 17; O2SAT 99
--- OUTSIDE RECORDS SUMMARY | 2022-02-04 19:44 | XMS_ITS | Continuity of Care Document ---
:1985 Author Organization [facility] [address] [place] [address]- Care Team Providers Name Role Phone Kendal William Primary Care Physician Encounter [facility] Date(s): 12/07/20 - 03/09/[address] [place], [place] [address] Attending Physician: Keo Barksdale MD Referring Physician: Kendal William Allergies, Adverse Reactions, Alerts Substance Reaction Severity Status Seafood Active Medications Albuterol PRN, 0 Refills, Maintenance, 06/25/11 8:17:07 EST Start Date: 06/25/11 Status: OrderedCeleBREX 50 mg oral capsule 1 capsule = 50 mg, By Mouth, 2 times a day, 0 Refills, Maintenance, 03/08/21 9:53:00 EST, Partial fill upon patient request if the prescription is for a schedule II opioid drug. Start Date: 03/08/21 Status: Ordereddicyclomine 10 mg oral capsule 1 capsule = 10 mg, By Mouth, 4 times a day, 0 Refills, Maintenance, 09/23/19 14:08:00 EDT, Capsule Start Date: 09/23/19 Status: Orderedibuprofen 800 mg oral tablet 800 mg, 1, tablet, By Mouth, 3 times a day, Motrin, Refills 0, Maintenance, 12/23/17 10:23:15 EDT Start Date: 12/23/17 Status: OrderedMultivitamin Daily, 0 Refills, Maintenance, 03/08/21 9:53:00 EST, Partial fill upon patient request if the prescription is for a schedule II opioid drug. Start Date: 03/08/21 Status: OrderedOmeprazole = 20 mg, By Mouth, Daily, 0 Refills, Maintenance, 10/27/18 9:55:50 EDT Start Date: 10/27/18 Status: OrderedVitamin A 0 Refills, Maintenance, 03/08/21 9:54:00 EST, Partial fill upon patient request if the prescription is for a schedule II opioid drug. Start Date: 03/08/21 Status: OrderedVitamin D3 1000 intl units oral capsule 1 capsule = 25 mcg, By Mouth, Daily, 0 Refills, Maintenance, 03/08/21 9:54:00 EST, Partial fill uponpatient request if the prescription is for a schedule II opioid drug. Start Date: 03/08/21 Status: Ordered Problem List Condition Effective Dates Status Health Status Informant Breast pain, chronic(Confirmed) Active Chronic diarrhea since cholecytectomy Active for first 2 meals of day, has had incontince of stool(Confirmed) Passage of loose stools(Confirmed) Active PCOS (polycystic ovarian Active syndrome)(Confirmed) Stool incontinence(Confirmed) Active Social History Social History Type Response Smoking Status Never smoker; Tobacco user i n household: No entered on: 03/28/15 Sex
--- OUTSIDE RECORDS SUMMARY | 2022-02-04 19:44 | XMS_ITS | Continuity of Care Document ---
:1985 Author Organization [facility] Address [address] [place] [address]- Care Team Providers Name Role Phone Kendal William Primary [facility] Phys[id number] Date(s): 09/14/19 - 10/14/19 [facility] [address] [address]- [facility] Attending Physician: Sonido Russell Admitting Physician: Sonido Russell Referring Physician: Sonido Russell Allergies, Adverse Reactions, Alerts Substance Reaction Severity Status Seafood Active Medications Albuterol PRN, 0 Refills, Maintenance, 06/25/11 8:17:07 EST Start Date: 06/25/11 Status: Ordereddicyclomine 10 mg oral capsule 1 capsule = 10 mg, By Mouth, 4 times a day, 0 Refills, Maintenance, 09/23/19 14:08:00 EDT, Capsule Start Date: 09/23/19 Status: Orderedibuprofen 800 mg oral tablet 800 mg, 1, tablet, By Mouth, 3 times a day, Motrin, Refills 0, Maintenance, 12/23/17 10:23:15 EDT Start Date: 12/23/17 Status: OrderedOmeprazole = 20 mg, By Mouth, Daily, 0 Refills, Maintenance, 10/27/18 9:55:50 EDT Start Date: 10/27/18 Status: Ordered Problem List Condition Effective Dates [...]
--- OUTSIDE RECORDS SUMMARY | 2022-02-04 19:44 | XMS_ITS | Continuity of Care Document ---
:1985 Author Organization [facility] Address [address] [place] [address]- Care Team Providers Name Role Phone Kendal William Primary [id number] Date(s[facility] 06/01/19 - 09/14/19 [facility] [address] [address]- [facility] Attending Physician: Anali Perry MD Admitting Physician: Anali Perry MD Referring Physician: Kendal William Allergies, Adverse Reactions, Alerts Substance Reaction Severity Status Seafood Active Medications Albuterol PRN, 0 Refills, Maintenance, 06/25/11 8:17:07 EST Start Date: 06/25/11 Status: Orderedclindamycin 1% topical lotion 1 application, Topically, 2 times a day, # 60 mL, 0 Refills, Maintenance, 02/04/19 10:52:11 EDT, Lotion, 1 application Topically 2 times a day,x90 days Start Date: 02/04/19 Stop Date: 05/05/19 Status: Orderedibuprofen 800 mg oral tablet 800 mg, 1, tablet, By Mouth, 3 times a day, Motrin, Refills 0, Maintenance, 12/23/17 10:23:15 EDT Start Date: 12/23/17 Status: OrderedOmeprazole By Mouth, Daily, 0 Refills, Maintenance, 10/27/18 9:55:50 EDT Start Date: 10/27/18 Status: OrderedZofran 4 mg oral tablet 1 tablet = 4 mg, By Mouth, Every 8 hours, PRN as needed for nausea/vomiting, # 15 tablet, 0 Refills,Maintenance, 08/19/16 10:35:41, Tablet Start Date: 08/19/16 Stop Date: 08/24/16 Status: Ordered Problem List Condition Effective Dates [...]
--- OUTSIDE RECORDS SUMMARY | 2022-02-04 19:44 | XMS_ITS | Continuity of Care Document ---
:1985 Author Organization [facility] [address] [place] [address]- Care Team Providers Name Role Phone Kendal William Primary Care Physician Encounter [facility] Date(s): 02/07/21 - 03/09/21 [facility] [address] [place], [place] [address] Attending Physician: Sonido Russell Admitting Physician: Sonido Russell Referring Physician: Sonido Russell Referring Physician: Michaelle Myers Allergies, Adverse Reactions, Alerts Substance Reaction Severity [...]
--- OUTSIDE RECORDS SUMMARY | 2022-02-04 19:44 | XMS_ITS | Continuity of Care Document ---
:1985 Author Organization [facility] [address] [place] [address]- Care Team Providers Name Role Phone Kendal William Primary Care Physician Encounter [facility] Date(s): 03/08/21 - 04/07/21 [facility] [address] [place], [place] [address] Attending Physician: Sonido Russell Admitting Physician: Sonido Russell Referring Physician: AdmtrSonido Allergies, Adverse Reactions, Alerts Substance Reaction Severity [...]
--- OUTSIDE RECORDS SUMMARY | 2022-02-04 19:44 | XMS_ITS | Continuity of Care Document ---
:1985 Author Organization [facility] Address [address] [place] [address]- Care Team Providers Name Role Phone Kendal William Primary Care Physician [id number] Date(s): 06/16/19 - 10/14/19 [facility] [address] [address]- [facility] Attending Physician: Anali Perry MD Admitting Physician: [...]
--- OUTSIDE RECORDS SUMMARY | 2022-02-04 19:44 | XMS_ITS | Continuity of Care Document ---
:1985 Author Organization [facility] Address [address] [place] [address]- Care Team Providers Name Role Phone Kendal William Primary Care Physician Encounter [facility] Date(s): 09/06/19 - 10/14/19 [facility] [address] [address]- [facility] Attending Physician: Anali Perry MD Admitting Physician: Anali Perry MD Allergies, Adverse Reactions, Alerts Substance Reaction Severity [...]
== END 2022-02-04 19:54 | disposition home or self-care (01) ==
LOC: HO.ED 19:43
PROVIDERS: Emergency Provider Emergency Medicine; PCP Nurse Practitioner Family
DX: M25.462 Effusion, left knee (principal)
CPT/HCPCS: 73564; 99283

== ENCOUNTER 2022-02-17 08:27 | Outpatient (REF) | payer OTHER, SELFPAY ==
--- NOTE | ~2022-02-17 | XR_ITS ---
EXAMINATION: XR KNEE, LEFT XR KNEE, BILATERAL CLINICAL INFORMATION: Left knee pain. Right knee pain. COMPARISON: 02/04/2022 and 09/14/2018. TECHNIQUE: AP standing view of both knees and lateral and sunrise views of the left knee. FINDINGS: Standing AP view of the knees demonstrate maintenance of the medial and lateral joint space compartments bilaterally. Medial plate and screws seen about the distal left femur for fixation of old transverse supracondylar fracture. Hardware appears intact. There is a small left knee effusion. Patellofemoral joint space is maintained. Minimal spurring is seen superior aspect of the patella medial facet. XR/XR knee standing BI IMPRESSION: Left knee hardware intact. Small left knee effusion. Stable appearance of the bones compared to previous studies.
--- NOTE | ~2022-02-17 | XR_ITS ---
EXAMINATION: XR KNEE, LEFT XR KNEE, BILATERAL CLINICAL INFORMATION: Left knee pain. Right knee pain. COMPARISON: 02/04/2022 and 09/14/2018. TECHNIQUE: AP standing view of both knees and lateral and sunrise views of the left knee. FINDINGS: Standing AP view of the knees demonstrate maintenance of the medial and lateral joint space compartments bilaterally. Medial plate and screws seen about the distal left femur for fixation of old transverse supracondylar fracture. Hardware appears intact. There is a small left knee effusion. Patellofemoral joint space is maintained. Minimal spurring is seen superior aspect of the patella medial facet. XR/XR knee LT 2V IMPRESSION: Left knee hardware intact. Small left knee effusion. Stable appearance of the bones compared to previous studies.
== END 2022-02-17 08:28 | disposition home or self-care (01) ==
LOC: HO.HOSX 08:27
PROVIDERS: Visit Provider Physician Assistant
DX: S80.02XA Contusion of left knee, initial encounter (principal); M25.561 Pain in right knee
CPT/HCPCS: 73560; 73565; 99212

== ENCOUNTER 2022-06-30 16:43 | Emergency (ER) | payer OTHER, SELFPAY ==
--- NOTE | ~2022-06-30 | CT_ITS ---
EXAMINATION: CT ABDOMEN AND PELVIS WITHOUT CONTRAST CLINICAL INFORMATION: Back pain radiating into the abdomen. History of renal stones. COMPARISON: Multiple priors, most recent CT abdomen/pelvis dated 03/16/2021. TECHNIQUE: Multidetector volumetric imaging was performed from the superior aspect of the liver through the pubic symphysis. Sagittal and coronal reformatted images were obtained on the technologist's workstation. This CT examination was performed using dose optimization techniques as appropriate, variously including the following: *Automated exposure control. *Adjustment of mA and/or kV according to patient size (this includes techniques or standardized protocols for targeted exams where dose is matched to indication/reason for exam; i.e. extremities or head). *Use of iterative reconstruction technique. DLP: 532 mGy-cm FINDINGS: LUNG BASES: The visualized lung bases are unremarkable. LIVER, GALLBLADDER, AND BILIARY TREE: The liver is normal in size, shape, and attenuation. No focal hepatic lesion or biliary ductal dilatation is present. Status post cholecystectomy. PANCREAS: Unremarkable. SPLEEN: Unremarkable. ADRENAL GLANDS: Unremarkable. KIDNEYS AND URETERS: The kidneys are normal in size, shape, and attenuation. No hydronephrosis, hydroureter, or calculi seen. No perinephric stranding. BLADDER: Nondistended and unremarkable. Multiple pelvic phleboliths are unchanged. GASTROINTESTINAL TRACT: Status post sleeve gastrectomy. No bowel wall thickening or inflammatory change. No small or large bowel obstruction. Unremarkable appendix. PERITONEAL CAVITY: No intra-abdominal free air or free fluid. ABDOMINAL WALL: No significant hernia is appreciated. LYMPH NODES: No significant lymphadenopathy. VASCULAR: Unremarkable. PELVIC VISCERA: The uterus and adnexa are unremarkable. OSSEOUS STRUCTURES: Unremarkable. CT/CT abdomen pelvis wo IV con IMPRESSION: 1. No renal or ureteral stone. No hydronephrosis or hydroureter. Nondistended and unremarkable urinary bladder. 2. Status post sleeve gastrectomy. No bowel wall thickening or inflammatory change. No small or large bowel obstruction. Unremarkable appendix. 3. No intra-abdominal mass, lymphadenopathy, or ascites. Fleischner guidelines were followed.
[2022-06-30 17:43] VITALS: BP 109/80; PULSE 80; RESP 18; TEMP 36.2; O2SAT 98; BMI 24.8
--- NOTE | 2022-06-30 17:45 | ED_ITS ---
HPI - Abdominal Pain General Chief Complaint: Abdominal Pain <NITO Cruz - Last Filed: 06/30/22 17:48> Stated Complaint: abd and back pain <NITO Cruz - Last Filed: 06/30/22 17:48> Time Seen by Provider: 06/30/22 21:17 <NITO Cruz - Last Filed: 06/30/22 17:48> Source: patient <Garret Ahn MD - Last Filed: 06/30/22 21:34> Mode of arrival: ambulatory <Garret Ahn MD - Last Filed: 06/30/22 21:34> Limitations: no limitations <Garret Ahn MD - Last Filed: 06/30/22 21:34> History of Present Illness HPI narrative: 36-year-old female with no major medical problems status post sleeve gastrectomy presents with abdominal pain. The abdominal pain started 9 hours ago. The pain is intermittent. The pain does not radiate. The pain is a 7/10 and described as sharp and aching in nature. There is no association of nausea, vomiting, diarrhea or constipation. She has had no fevers or chills. She denies any urinary complaints. Patient has never had this before. Immediately prior to the symptoms, patient had soup made by her sister. <Garret Ahn MD - Last Filed: 06/30/22 21:34> Related Data Home Medications: Home Medications Medication Instructions Recorded Confirmed calcium citrate 1,000 mg tablet 1,000 mg PO DAILY 01/16/21 02/17/22 [id number] 45 mg-folic cap PO 04/16/21 02/17/22 acid 800 mcg-vit K 120 mcg capsule (Bariatric Multivitamins) Previous Rx's Medication Instructions Recorded ondansetron 4 mg disintegrating 4 mg PO Q8H PRN nausea and 10/24/20 tablet vomiting #10 tabs polyethylene glycol 3350 17 17 g PO DAILY #238 grams 04/01/21 gram/dose oral powder (Miralax) cholecalciferol (vitamin D3) 125 125 mcg PO DAILY #30 caps 04/16/21 mcg (5,000 unit) capsule thiamine HCl (vitamin B1) 100 mg 100 mg PO DAILY #30 tabs 04/20/21 tablet zinc gluconate 10 mg lozenges 10 mg PO DAILY #100 ea 04/20/21 vitamin A palmitate 10,000 unit 10,000 unit PO DAILY #30 caps 04/24/21 capsule clotrimazole 1 % topical cream 1 appl topical BID #45 grams 07/16/21 (Antifungal (clotrimazole)) mecobalamin (vitamin B12) 1,000 1,000 mcg sublingual DAILY #30 tabs 07/16/21 mcg disintegrating tablet,sublingual acetaminophen 500 mg tablet 500 mg PO QID PRN fever or pain 02/04/22 #20 tabs dicyclomine 20 mg tablet 20 mg PO TID PRN abdominal pain 06/30/22 #20 tabs <NITO Cruz - Last Filed: 06/30/22 17:48> Allergies/Adverse Reactions: Allergies Allergy/AdvReac Type Severity Reaction Status Date / Time Seafood Allergy Severe HIVES/SWELL Uncoded 06/30/22 17:41 ING <NITO Cruz - Last Filed: 06/30/22 17:48> [facility] Past Medical History Medical History: Medical History Adjustment disorder, unspecified Asthma BMI 25.0-25.9,adult BMI 26.0-26.9,adult BMI 33.0-33.9,adult BMI 34.0-34.9,adult BMI 35.0-35.9,adult BMI 39.0-39.9,adult BMI 40.0-44.9, adult Gastritis Migraine Morbid (severe) obesity due to excess calories MARYANA on CPAP Overweight (BMI 25.0-29.9) Prediabetes Preoperative examination Shortness of breath Sleep apnea Vitamin A deficiency Vitamin B1 deficiency Vitamin D deficiency <NITO Cruz - Last Filed: 06/30/22 17:48> Surgical History: Surgical History H/O left knee surgery History of bilateral tubal ligation History of repair of hiatal hernia Hx laparoscopic cholecystectomy Hx of colonoscopy Normal endoscopy S/P laparoscopic sleeve gastrectomy <NITO Cruz - Last Filed: 06/30/22 17:48> Family History Family History: Family History Father Hypertension Heart problem Vertigo Mother Dementia Alzheimer disease Pneumathemia Sister Depressed Hypertension Anxiety History of gastric surgery Sister Diabetes mellitus Hypertension Depressed Anxiety Brother No problems noted. Brother No problems noted. Son Asthma Diabetes mellitus Obese abdomen Daughter Asthma <NITO Cruz - Last Filed: 06/30/22 17:48> Social History Social History: Social History Are you a primary child care center assistant director to a significant other at home: No Do you presently have visiting nurse or other home services: No Alcohol intake: never Patient Tobacco Use Status: Never used Tobacco Advance Directives: No Advance Directives Information Provided: Yes service: No Current occupational status: unemployed <NITO Cruz - Last Filed: 06/30/22 17:48> Physical Exam ED Vital Signs: Vital Signs - 24 hr 06/30/22 17:43 Temperature 97.2 F Pulse Rate 80 Respiratory Rate 18 Blood Pressure 109/80 Pulse Oximetry 98 Oxygen Delivery Method Room Air BMI result Body Mass Index 24.8 <NITO Cruz - Last Filed: 06/30/22 17:48> Vital Signs - 24 hr 06/30/22 17:43 Temperature 97.2 F Pulse Rate 80 Respiratory Rate 18 Blood Pressure 109/80 Pulse Oximetry 98 Oxygen Delivery Method Room Air BMI result Body Mass Index 24.8 <Garret Ahn MD - Last Filed: 06/30/22 21:34> GEN: Well developed, no acute distress, alert, oriented HEENT: Normocephalic, atraumatic, normal external ears, nose appears normal, no oropharyngeal edema or exudates Eyes: Normal to appearance Neck: Supple, no lymphadenopathy Respiratory: Talks in complete sentences, no respiratory distress, clear to auscultation bilaterally Cardiovascular: Regular rate and rhythm, no murmurs rubs or gallops Abdomen: Soft, periumbilical tenderness without rebound or guarding, negative Bond sign, negative McBurney's point tenderness, no CVA tenderness Back: No CVA tenderness Extremities: No clubbing cyanosis or edema Neurologic: No focal neurologic deficits, cranial nerves 2-12 intact, strength is 5/5 bilaterally, gait normal Skin: No rash <Garret Ahn MD - Last Filed: 06/30/22 21:34> Course Course Course Narrative: RME-17:45pm - 36yoF with [place]ib[place]ian-speaking with a PSHx cholecystectomy and status post 1 month breast reduction and history of kidney stone who is presenting to the ER with complaints of back pain worse on the right side radiating to her bilateral flanks and diffusely all over her entire anterior abdomen that started this afternoon after eating chicken soup. Reports associated urinary freque ncy/urgency and dysuria. Denies any fevers, sore throat, chest pain or shortness of breath, cough, hematuria, abnormal vaginal discharge, black or bloody stools, diarrhea constipation, recent travel or sick contacts, possible bad food exposure, recent antibiotic usage or any other symptoms complaints or concerns at this time. Plan: Will obtain labs, UA, CT scan abdomen pelvis without IV contrast patient will be sent back to the waiting room to be evaluated the ED. <NITO Cruz - Last Filed: 06/30/22 17:48> Reevaluation(s) Reevaluation #1: The workup is complete. Her CT scan identifies no clear etiology of her symptoms. Lab work was unremarkable for <Garret Ahn MD - Last Filed: 06/30/22 21:34> Time: 21:28 <Garret Ahn MD - Last Filed: 06/30/22 21:34> Medical Decision Making Medical Decision Making [facility] Narrative: Differential diagnosis includes IBD, IBS, pancreatitis, hepatitis, biliary colic, postoperative related issue to sleeve gastrectomy, peptic ulcer, GERD, doubt other causes such as pneumonia, pyelonephritis, appendicitis, vascular issue, bowel obstruction or perforation. Plan will include labs, urinalysis, CT scan, pain control and serial reassessments. <Garret Ahn MD - Last Filed: 06/30/22 21:34> Differential Diagnosis Differential Diagnoses: The differential diagnosis associated with the presentation includes (Pancreatitis, hepatitis, biliary colic, IBD, IBS, mesenteric adenitis, SBO, sleeve gastrectomy issue) <Garret Ahn MD - Last Filed: 06/30/22 21:34> Periumbilical pain <Garret Ahn MD - Last Filed: 06/30/22 21:34> Admission/Observation Consideration of admission/observation: Escalation of care including admission/observation considered <Garret Ahn MD - Last Filed: 06/30/22 21:34> Lab Data [facility] Lab Attestation statement: I reviewed the patient's lab results. <Garret Ahn MD - Last Filed: 06/30/22 21:34> Result Diagrams: 06/30/22 18:11 06/30/22 18:10 <NITO Cruz - Last Filed: 06/30/22 17:48> Labs: Lab Results 06/30/22 06/30/22 06/30/22 Range/Units 18:10 18:11 18:11 WBC 8.0 (4.8-10.8) X10*3/uL RBC 4.45 (4.20-5.50) X10*6/uL Hgb 12.6 (12.0-16.0) g/dl Hct 39.7 (37.0-47.0) % MCV 89.2 (80.0-98.0) fL MCH 28.3 (27.0-33.0) pg MCHC 31.7 (31.0-35.0) g/dl RDW 12.0 (11.0-16.0) % Plt Count 270 (160-400) X10*3/uL MPV 12.1 (9.4-12.3) fL Immature Gran % (Auto) 0.3 (0.0-0.4) % Neut % (Auto) 57.2 (45-73) % Lymph % (Auto) 33.3 (20-40) % [place] % (Auto) 6.8 (2-11) % Eos % (Auto) 2.1 (0-4) % Baso % (Auto) 0.3 (0-2) % Lymph # (Auto) 2.7 (1.2-4.9) X10*3/uL [place] # (Auto) 0.5 (0.1-1.2) X10*3/uL Eos # (Auto) 0.2 (0.0-0.4) X10*3/uL Baso # (Auto) 0.0 (0.0-0.2) X10*3/uL Abs Immat Gran (auto) 0.02 (0.00-0.03) X10*3/uL Absolute Neuts (auto) 4.6 (2.0-8.3) x10*3/uL Absolute Nucleated RBC 0.000 (0.0-0.012) X10*3/uL Nucleated RBC % (auto) 0.0 (0.0-0.2) /100WBC ESR 10 (0-20) MM/HR PT (10.0-13.1) SEC INR (0.9-1.1) Sodium 140 (135-145) mmol/L Potassium 3.8 (3.3-5.1) mmol/L Chloride 105 (96-108) mmol/L Carbon Dioxide 28 (22-29) mmol/L Anion Gap 11 L (12-20) BUN 8 L (9-16) mg/dL Creatinine 0.78 (0.5-1.4) mg/dL Estim Creat Clear Calc 91.5 Estimated GFR > 60 Random Glucose 86 (60-115) mg/dL Calcium 9.9 D (8.4-10.2) mg/dL Magnesium 1.8 (1.6-2.6) mg/dL Total Bilirubin 0.5 (0.0-1.0) mg/dL AST 11 (5-31) U/L ALT 9 (0-31) U/L Alkaline Phosphatase 61 (39-117) U/L C-Reactive Protein < 0.10 (< or = 0.50) mg/dL Total Protein 7.7 (6.5-8.0) g/dL Albumin 4.2 (3.5-5.0) g/dL Lipase 20 (8-78) U/L Beta HCG, Quant < 2 mIU/mL Urine Color Urine Appearance Urine pH (5.0-9.0) Ur Specific [place] (1.005-1.025) Urine Protein (Neg-Trace) mg/dL Urine Glucose (UA) (Negative) mg/dL Urine Ketones (Negative) mg/dL Urine Blood (Negative) Urine Nitrite (Negative) Ur Leukocyte Esterase (Negative) Influenza Type A (PCR) (Negative) Influenza Type B (PCR) (Negative) RSV RNA Qual (PCR) (Negative) SARS-CoV-2 RNA (RT-PCR) (Negative) 06/30/22 06/30/22 06/30/22 Range/Units 18:11 18:11 18:11 WBC (4.8-10.8) X10*3/uL RBC (4.20-5.50) X10*6/uL Hgb (12.0-16.0) g/dl Hct (37.0-47.0) % MCV (80.0-98.0) fL MCH (27.0-33.0) pg MCHC (31.0-35.0) g/dl RDW (11.0-16.0) % Plt Count (160-400) X10*3/uL MPV (9.4-12.3) fL Immature Gran % (Auto) (0.0-0.4) % Neut % (Auto) (45-73) % Lymph % (Auto) (20-40) % [place] % (Auto) (2-11) % Eos % (Auto) (0-4) % Baso % (Auto) (0-2) % Lymph # (Auto) (1.2-4.9) X10*3/uL [place] # (Auto) (0.1-1.2) X10*3/uL Eos # (Auto) (0.0-0.4) X10*3/uL Baso # (Auto) (0.0-0.2) X10*3/uL Abs Immat Gran (auto) (0.00-0.03) X10*3/uL Absolute Neuts (auto) (2.0-8.3) x10*3/uL Absolute Nucleated RBC (0.0-0.012) X10*3/uL Nucleated RBC % (auto) (0.0-0.2) /100WBC ESR (0-20) MM/HR PT 11.0 (10.0-13.1) SEC INR 1.0 (0.9-1.1) Sodium (135-145) mmol/L Potassium (3.3-5.1) mmol/L Chloride (96-108) mmol/L Carbon Dioxide (22-29) mmol/L Anion Gap (12-20) BUN (9-16) mg/dL Creatinine (0.5-1.4) mg/dL Estim Creat Clear Calc Estimated GFR Random Glucose (60-115) mg/dL Calcium (8.4-10.2) mg/dL Magnesium (1.6-2.6) mg/dL Total Bilirubin (0.0-1.0) mg/dL AST (5-31) U/L ALT (0-31) U/L Alkaline Phosphatase (39-117) U/L C-Reactive Protein (< or = 0.50) mg/dL Total Protein (6.5-8.0) g/dL Albumin (3.5-5.0) g/dL Lipase (8-78) U/L Beta HCG, Quant mIU/mL Urine Color Yellow Urine Appearance Clear Urine pH 6.0 (5.0-9.0) Ur Specific [place] 1.025 (1.005-1.025) Urine Protein Negative (Neg-Trace) mg/dL Urine Glucose (UA) Negative (Negative) mg/dL Urine Ketones Trace (Negative) mg/dL Urine Blood Negative (Negative) Urine Nitrite Negative (Negative) Ur Leukocyte Esterase Negative (Negative) Influenza Type A (PCR) NEGATIVE (Negative) Influenza Type B (PCR) NEGATIVE (Negative) RSV RNA Qual (PCR) NEGATIVE (Negative) SARS-CoV-2 RNA (RT-PCR) NEGATIVE (Negative) <NITO Cruz - Last Filed: 06/30/22 17:48> Lab Results 06/30/22 06/30/22 06/30/22 Range/Units 18:10 18:11 18:11 WBC 8.0 (4.8-10.8) X10*3/uL RBC 4.45 (4.20-5.50) X10*6/uL Hgb 12.6 (12.0-16.0) g/dl Hct 39.7 (37.0-47.0) % MCV 89.2 (80.0-98.0) fL MCH 28.3 (27.0-33.0) pg MCHC 31.7 (31.0-35.0) g/dl RDW 12.0 (11.0-16.0) % Plt Count 270 (160-400) X10*3/uL MPV 12.1 (9.4-12.3) fL Immature Gran % (Auto) 0.3 (0.0-0.4) % Neut % (Auto) 57.2 (45-73) % Lymph % (Auto) 33.3 (20-40) % [place] % (Auto) 6.8 (2-11) % Eos % (Auto) 2.1 (0-4) % Baso % (Auto) 0.3 (0-2) % Lymph # (Auto) 2.7 (1.2-4.9) X10*3/uL [place] # (Auto) 0.5 (0.1-1.2) X10*3/uL Eos # (Auto) 0.2 (0.0-0.4) X10*3/uL Baso # (Auto) 0.0 (0.0-0.2) X10*3/uL Abs Immat Gran (auto) 0.02 (0.00-0.03) X10*3/uL Absolute Neuts (auto) 4.6 (2.0-8.3) x10*3/uL Absolute Nucleated RBC 0.000 (0.0-0.012) X10*3/uL Nucleated RBC % (auto) 0.0 (0.0-0.2) /100WBC ESR 10 (0-20) MM/HR PT (10.0-13.1) SEC INR (0.9-1.1) Sodium 140 (135-145) mmol/L Potassium 3.8 (3.3-5.1) mmol/L Chloride 105 (96-108) mmol/L Carbon Dioxide 28 (22-29) mmol/L Anion Gap 11 L (12-20) BUN 8 L (9-16) mg/dL Creatinine 0.78 (0.5-1.4) mg/dL Estim Creat Clear Calc 91.5 Estimated GFR > 60 Random Glucose 86 (60-115) mg/dL Calcium 9.9 D (8.4-10.2) mg/dL Magnesium 1.8 (1.6-2.6) mg/dL Total Bilirubin 0.5 (0.0-1.0) mg/dL AST 11 (5-31) U/L ALT 9 (0-31) U/L Alkaline Phosphatase 61 (39-117) U/L C-Reactive Protein < 0.10 (< or = 0.50) mg/dL Total Protein 7.7 (6.5-8.0) g/dL Albumin 4.2 (3.5-5.0) g/dL Lipase 20 (8-78) U/L Beta HCG, Quant < 2 mIU/mL Urine Color Urine Appearance Urine pH (5.0-9.0) Ur Specific [place] (1.005-1.025) Urine Protein (Neg-Trace) mg/dL Urine Glucose (UA) (Negative) mg/dL Urine Ketones (Negative) mg/dL Urine Blood (Negative) Urine Nitrite (Negative) Ur Leukocyte Esterase (Negative) Influenza Type A (PCR) (Negative) Influenza Type B (PCR) (Negative) RSV RNA Qual (PCR) (Negative) SARS-CoV-2 RNA (RT-PCR) (Negative) 06/30/22 06/30/22 06/30/22 Range/Units 18:11 18:11 18:11 WBC (4.8-10.8) X10*3/uL RBC (4.20-5.50) X10*6/uL Hgb (12.0-16.0) g/dl Hct (37.0-47.0) % MCV (80.0-98.0) fL MCH (27.0-33.0) pg MCHC (31.0-35.0) g/dl RDW (11.0-16.0) % Plt Count (160-400) X10*3/uL MPV (9.4-12.3) fL Immature Gran % (Auto) (0.0-0.4) % Neut % (Auto) (45-73) % Lymph % (Auto) (20-40) % [place] % (Auto) (2-11) % Eos % (Auto) (0-4) % Baso % (Auto) (0-2) % Lymph # (Auto) (1.2-4.9) X10*3/uL [place] # (Auto) (0.1-1.2) X10*3/uL Eos # (Auto) (0.0-0.4) X10*3/uL Baso # (Auto) (0.0-0.2) X10*3/uL Abs Immat Gran (auto) (0.00-0.03) X10*3/uL Absolute Neuts (auto) (2.0-8.3) x10*3/uL Absolute Nucleated RBC (0.0-0.012) X10*3/uL Nucleated RBC % (auto) (0.0-0.2) /100WBC ESR (0-20) MM/HR PT 11.0 (10.0-13.1) SEC INR 1.0 (0.9-1.1) Sodium (135-145) mmol/L Potassium (3.3-5.1) mmol/L Chloride (96-108) mmol/L Carbon Dioxide (22-29) mmol/L Anion Gap (12-20) BUN (9-16) mg/dL Creatinine (0.5-1.4) mg/dL Estim Creat Clear Calc Estimated GFR Random Glucose (60-115) mg/dL Calcium (8.4-10.2) mg/dL Magnesium (1.6-2.6) mg/dL Total Bilirubin (0.0-1.0) mg/dL AST (5-31) U/L ALT (0-31) U/L Alkaline Phosphatase (39-117) U/L C-Reactive Protein (< or = 0.50) mg/dL Total Protein (6.5-8.0) g/dL Albumin (3.5-5.0) g/dL Lipase (8-78) U/L Beta HCG, Quant mIU/mL Urine Color Yellow Urine Appearance Clear Urine pH 6.0 (5.0-9.0) Ur Specific [place] 1.025 (1.005-1.025) Urine Protein Negative (Neg-Trace) mg/dL Urine Glucose (UA) Negative (Negative) mg/dL Urine Ketones Trace (Negative) mg/dL Urine Blood Negative (Negative) Urine Nitrite Negative (Negative) Ur Leukocyte Esterase Negative (Negative) Influenza Type A (PCR) NEGATIVE (Negative) Influenza Type B (PCR) NEGATIVE (Negative) RSV RNA Qual (PCR) NEGATIVE (Negative) SARS-CoV-2 RNA (RT-PCR) NEGATIVE (Negative) <Garret Ahn MD - Last Filed: 06/30/22 21:34> Independent Interpretation I performed an independent interpretation of an: CT Scan (No acute abdominal findings) <Garret Ahn MD - Last Filed: 06/30/22 21:34> Radiology Impression Discussion of test interpretation with radiology: I have reviewed the radiologist's reading. (IMPRESSION: 1. No renal or ureteral stone. No hydronephrosis or hydroureter. Nondistended and unremarkable urinary bladder. 2. Status post sleeve gastrectomy. No bowel wall thickening or inflammatory change. No small or large bowel obstruction. Unremarkable appendix. 3. No intra-abdominal mass, ) <Garret Ahn MD - Last Filed: 06/30/22 21:34> Independent Historian Clinical information obtained from an independent historian. History obtained from or confirmed by: Spouse <Garret Ahn MD - Last Filed: 06/30/22 21:34> External Record Review External record reviewed: Prior outpatient labs <Garret Ahn MD - Last Filed: 06/30/22 21:34> Tests considered The following testing was considered but not selected: Ultrasound <Garret hAn MD - Last Filed: 06/30/22 21:34> Prescription Management I considered prescription management with: Pain Medication <Garret Ahn MD - Last Filed: 06/30/22 21:34> Chronic Conditions Patient?s care impacted by: Other (Dyslipidemia) <Garret Ahn MD - Last Filed: 06/30/22 21:34> Discharge Plan Discharge Clinical Impression: Abdominal pain <NITO Cruz - Last Filed: 06/30/22 17:48> Patient Disposition: Home, Self-Care <NITO Cruz - Last Filed: 06/30/22 17:48> Instructions: Abdominal Pain (ED) <NITO Cruz - Last Filed: 06/30/22 17:48> Prescriptions: New dicyclomine 20 mg tablet 20 mg PO TID PRN (Reason: abdominal pain) Qty: 20 0RF No Action polyethylene glycol 3350 [Miralax] 17 gram/dose powder 17 g PO DAILY Qty: 238 0RF cholecalciferol (vitamin D3) 125 mcg (5,000 unit) capsule 125 mcg PO DAILY Qty: 30 3RF zinc gluconate 10 mg lozenge 10 mg PO DAILY Qty: 100 0RF thiamine HCl (vitamin B1) 100 mg tablet 100 mg PO DAILY Qty: 30 2RF vitamin A palmitate 10,000 unit capsule 10,000 unit PO DAILY Qty: 30 2RF mecobalamin (vitamin B12) 1,000 mcg tablet,disintegrating 1,000 mcg sublingual DAILY Qty: 30 3RF Rx Instructions: place tablet under tongue and allow to dissolve for at least30 secs before swallowing ondansetron 4 mg tablet,disintegrating 4 mg PO Q8H PRN (Reason: nausea and vomiting) Qty: 10 0RF acetaminophen 500 mg tablet 500 mg PO QID PRN (Reason: fever or pain) Qty: 20 0RF Bariatric Multivitamins 45 mg iron- 800 mcg-120 mcg capsule PO calcium citrate 1,000 mg tablet 1,000 mg PO DAILY clotrimazole [Antifungal (clotrimazole)] 1 % cream 1 appl topical BID Qty: 45 0RF <NITO Cruz - Last Filed: 06/30/22 17:48> Referrals: [facility] [Primary Care Provider] - <NITO Cruz - Last Filed: 06/30/22 17:48> Print Language: [place]ian <NITO Cruz - Last Filed: 06/30/22 17:48>
[2022-06-30 18:22] LABS: MANUAL DIFF FLAG NO
[2022-06-30 18:26] LABS: Appearance Urine Clear; Color Urine Yellow; Glucose Urine UA Negative (Negative); Leukocyte Esterase Urine Negative (Negative); Nitrite Urine Negative (Negative); Specific Gravity - Urine 1.025 (1.005-1.025); Urine Blood Negative (Negative); Urine Ketones Trace mg/dL (Negative); Urine Protein Negative (Neg-Trace)
[2022-06-30 18:29] LABS: Basophils Percent Auto 0.3 % (0-2); Eosinophils Absolute Auto 0.2 X10*3/uL (0.0-0.4); Eosinophils Percent Auto 2.1 % (0-4); Hematocrit 39.7 % (37.0-47.0); Hemoglobin 12.6 g/dl (12.0-16.0); Imm Gran Abs Auto 0.02 X10*3/uL (0.00-0.03); Imm Gran Pct Auto 0.3 % (0.0-0.4); Lymphocytes Absolute Auto 2.7 X10*3/uL (1.2-4.9); Lymphocytes Percent Auto 33.3 % (20-40); Mean Corpuscular HGB Conc 31.7 g/dl (31.0-35.0); Mean Corpuscular Hemoglobin 28.3 pg (27.0-33.0); Mean Corpuscular Volume 89.2 fL (80.0-98.0); Mean Platelet Volume 12.1 fL (9.4-12.3); Monocytes Absolute Auto 0.5 X10*3/uL (0.1-1.2); Monocytes Percent Auto 6.8 % (2-11); Neutrophils Absolute Auto 4.6 x10*3/uL (2.0-8.3); Neutrophils Percent Auto 57.2 % (45-73); Platelet Count 270 X10*3/uL (160-400); Red Blood Count 4.45 X10*6/uL (4.20-5.50)
[2022-06-30 18:51] LABS: Alanine Aminotransferase 9 U/L (0-31); Albumin Level 4.2 g/dL (3.5-5.0); Alkaline Phosphatase 61 U/L (39-117); Anion Gap 11 (12-20); Aspartate Amino Transferase 11 U/L (5-31); Bilirubin Total 0.5 mg/dL (0.0-1.0); Blood Urea Nitrogen 8 mg/dL (9-16); C Reactive Protein < 0.10 mg/dL (< or = 0.50); Calcium 9.9 mg/dL (8.4-10.2); Carbon Dioxide 28 mmol/L (22-29); Chloride 105 mmol/L (96-108); Creatinine Clr Calc Pharmacy 91.5; Estimated Glomerular Filt Rate > 60; Glucose Random 86 mg/dL (60-115); Lipase 20 U/L (8-78); Magnesium 1.8 mg/dL (1.6-2.6); Potassium 3.8 mmol/L (3.3-5.1); Sodium 140 mmol/L (135-145); Total Protein 7.7 g/dL (6.5-8.0)
[2022-06-30 18:55] LABS: HCG Quantitative < 2 mIU/mL
[2022-06-30 19:02] LABS: Influenza A PCR NEGATIVE (Negative); Influenza B PCR NEGATIVE (Negative); Resp Syncy Virus RNA Qual PCR NEGATIVE (Negative); SARS COV2 PCR INHOUSE NEGATIVE (Negative)
[2022-06-30 19:07] LABS: Erythrocyte Sedimentation Rate 10 MM/HR (0-20)
[2022-06-30 20:00] VITALS: BP 120/80; PULSE 73; RESP 17; TEMP 36.8; O2SAT 100
--- NOTE | 2022-06-30 21:02 | PC.NURSE ---
aox4, bulgarian speaking, no apparent distress resting quietly while s/o at bedside vs assessed c/o lower abd pain that radiates to lower back med to follow
[2022-06-30 22:00] VITALS: BP 118/79; PULSE 70; RESP 18; TEMP 36.6; O2SAT 100
[2022-06-30] MEDS: oxyCODONE HCl Immed Release 5 MG TABLET PO (22:07)
--- NOTE | 2022-06-30 22:34 | PC.NURSE ---
Discharge instructions given/explained to pt, ambulates safely/ind, no apparent distress, left with male s/o stated he would be driving
== END 2022-06-30 22:33 | disposition home or self-care (01) ==
PROVIDERS: Physician Assistant Medical; Emergency Provider Emergency Medicine
DX: R10.9 Unspecified abdominal pain (principal); M54.50 Low back pain, unspecified; Z98.84 Bariatric surgery status; Z20.822 Contact with and (suspected) exposure to COVID-19; Z20.828 Contact with and (suspected) exposure to other viral communicable diseases; Z79.899 Other long term (current) drug therapy
CPT/HCPCS: 0241U; 36415; 74176; 80053; 81003; 83690; 83735; 84702; 85025; 85610; 85652; 86140; 99284

== ENCOUNTER → 2022-07-18 16:33 | Outpatient (BNVA) | payer OTHER, SELFPAY | PROVIDERS: PCP Nurse Practitioner Family; Visit Provider Physician Assistant Surgical | DX: L98.7 Excessive and redundant skin and subcutaneous tissue (principal); R21 Rash and other nonspecific skin eruption; Z90.3 Acquired absence of stomach [part of] | CPT/HCPCS: 99212 ==

== ENCOUNTER 2022-07-24 10:21 | Outpatient (REF) | payer OTHER, SELFPAY ==
[2022-07-24 10:39] LABS: MANUAL DIFF FLAG NO
[2022-07-24 11:04] LABS: Basophils Percent Auto 0.3 % (0-2); Eosinophils Absolute Auto 0.2 X10*3/uL (0.0-0.4); Eosinophils Percent Auto 2.6 % (0-4); Hematocrit 39.7 % (37.0-47.0); Hemoglobin 12.9 g/dl (12.0-16.0); Imm Gran Abs Auto 0.03 X10*3/uL (0.00-0.03); Imm Gran Pct Auto 0.4 % (0.0-0.4); Lymphocytes Absolute Auto 2.1 X10*3/uL (1.2-4.9); Lymphocytes Percent Auto 30.8 % (20-40); Mean Corpuscular HGB Conc 32.5 g/dl (31.0-35.0); Mean Corpuscular Hemoglobin 29.1 pg (27.0-33.0); Mean Corpuscular Volume 89.6 fL (80.0-98.0); Mean Platelet Volume 12.5 fL (9.4-12.3); Monocytes Absolute Auto 0.5 X10*3/uL (0.1-1.2); Monocytes Percent Auto 6.9 % (2-11); Neutrophils Absolute Auto 4.1 x10*3/uL (2.0-8.3); Platelet Count 266 X10*3/uL (160-400); Red Blood Count 4.43 X10*6/uL (4.20-5.50); Red Cell Distribution Width 11.9 % (11.0-16.0); White Blood Count 6.9 X10*3/uL (4.8-10.8)
[2022-07-24 11:13] LABS: Estimated Average Glucose 94 mg/dL; Hemoglobin A1C 103.1305 umol/L; Hemoglobin A1c % 4.9 %
[2022-07-24 11:39] LABS: Alanine Aminotransferase 7 U/L (0-31); Albumin Level 3.8 g/dL (3.5-5.0); Alkaline Phosphatase 59 U/L (39-117); Anion Gap 10 (12-20); Aspartate Amino Transferase 12 U/L (5-31); Bilirubin Total 0.3 mg/dL (0.0-1.0); Blood Urea Nitrogen 6 mg/dL (9-16); C Reactive Protein 0.11 mg/dL (< or = 0.50); Carbon Dioxide 27 mmol/L (22-29); Chloride 107 mmol/L (96-108); Cholesterol 169 mg/dL; Estimated Glomerular Filt Rate > 60; HDL Cholesterol 48 mg/dL; Iron 50 mcg/dL (30-160); LDL Cholesterol Calculated 111 mg/dl; Percent Iron Saturation 21 % (15-50); Potassium 4.2 mmol/L (3.3-5.1); Sodium 140 mmol/L (135-145); Total Iron Binding Capacity 241 mcg/dL (228-428); Total Protein 7.1 g/dL (6.5-8.0); Triglycerides 52 mg/dL; Unsaturated Iron Binding 191 ug/dL
[2022-07-24 12:34] LABS: Ferritin 188 ng/mL (10-122); Folate 4.6 ng/mL (> or = 4.0); Insulin 7 uU/mL (2-29); TSH reflex Free T4 0.56 uIU/mL (0.32-4.0); Vitamin B12 178 pg/mL (200-900); Vitamin D 25-OH Total 12.6 ng/mL (>30)
[2022-07-24 13:24] LABS: Glucose Random 59 mg/dL (60-115)
[2022-07-28 21:49] LABS: Calcium (PTHI) 9.2 mg/dL (8.6-10.2); PTHI 52 pg/mL (16-77)
[2022-07-29 05:33] LABS: Zinc 55 mcg/dL (60-130)
[2022-07-31 05:09] LABS: Vitamin A 22 mcg/dL (38-98)
[2022-08-01 06:28] LABS: Vitamin B1 <6 nmol/L (8-30)
== END 2022-07-24 10:22 | disposition home or self-care (01) ==
LOC: HO.LAB 10:21
PROVIDERS: PCP Nurse Practitioner Family; Visit Provider Physician Assistant Surgical
DX: Z98.84 Bariatric surgery status (principal)
CPT/HCPCS: 36415; 80053; 80061; 82306; 82607; 82728; 82746; 83036; 83525; 83540; 83970; 84425; 84443; 84590; 84630; 85025; 86140

== ENCOUNTER → 2022-08-08 08:02 | Outpatient (BNVA) | payer OTHER, SELFPAY | PROVIDERS: PCP Nurse Practitioner Family; Visit Provider Surgery ==

== ENCOUNTER 2022-08-21 07:24 | Day surgery (SDC) | payer OTHER, SELFPAY ==
[2022-08-11 06:56] LABS: MANUAL DIFF FLAG NO
[2022-08-11 08:04] LABS: Basophils Percent Auto 0.3 % (0-2); Eosinophils Absolute Auto 0.1 X10*3/uL (0.0-0.4); Eosinophils Percent Auto 1.7 % (0-4); Hematocrit 41.7 % (37.0-47.0); Hemoglobin 13.5 g/dl (12.0-16.0); Imm Gran Abs Auto 0.02 X10*3/uL (0.00-0.03); Imm Gran Pct Auto 0.3 % (0.0-0.4); Lymphocytes Absolute Auto 1.9 X10*3/uL (1.2-4.9); Lymphocytes Percent Auto 28.9 % (20-40); Mean Corpuscular HGB Conc 32.4 g/dl (31.0-35.0); Mean Corpuscular Hemoglobin 28.9 pg (27.0-33.0); Mean Corpuscular Volume 89.3 fL (80.0-98.0); Monocytes Absolute Auto 0.5 X10*3/uL (0.1-1.2); Neutrophils Absolute Auto 4.1 x10*3/uL (2.0-8.3); Neutrophils Percent Auto 60.8 % (45-73); Platelet Count 253 X10*3/uL (160-400); Red Blood Count 4.67 X10*6/uL (4.20-5.50); Red Cell Distribution Width 12.1 % (11.0-16.0); White Blood Count 6.7 X10*3/uL (4.8-10.8)
[2022-08-11 08:10] LABS: Estimated Average Glucose 94 mg/dL; Hemoglobin A1c % 4.9 %
[2022-08-11 08:15] LABS: Prothrombin Time 11.3 SEC (10.0-13.1)
[2022-08-11 08:18] LABS: Partial Thromboplastin Time 34.2 SEC (26.0-36.4)
[2022-08-11 08:29] LABS: Alanine Aminotransferase 8 U/L (0-31); Albumin Level 3.9 g/dL (3.5-5.0); Alkaline Phosphatase 56 U/L (39-117); Anion Gap 10 (12-20); Aspartate Amino Transferase 11 U/L (5-31); Bilirubin Total 0.6 mg/dL (0.0-1.0); Blood Urea Nitrogen 10 mg/dL (9-16); Calcium 9.2 mg/dL (8.4-10.2); Carbon Dioxide 26 mmol/L (22-29); Chloride 107 mmol/L (96-108); Estimated Glomerular Filt Rate > 60; Glucose Random 86 mg/dL (60-115); Potassium 3.8 mmol/L (3.3-5.1); Sodium 139 mmol/L (135-145); Total Protein 7.4 g/dL (6.5-8.0)
[2022-08-15 14:07] VITALS: BMI 24.5
--- NOTE | 2022-08-16 15:05 | P.HPSUR_ITS ---
Pre-Procedural Eval Section A Date of Service: 08/16/22 The patient is an INPATIENT: No The History & Physical has been completed within 30 days and I have reviewed it.: Yes Section B Chief Complaint: Excessive and redundant skin,subcutaneous tissue Relevant Family History (Specify if Yes): No Relevant Social History: None Present Medications: None Medical History: No relevant PMH History of Previous Operations: Relevant previous surgery/procedure and date(s) (laparoscopic sleeve gastrectomy) Allergies: Allergies Allergy/AdvReac Type Severity Reaction Status Date / Time Seafood Allergy Severe HIVES/SWELL Uncoded 06/30/22 17:41 ING Review of Systems Sugical H&P ROS: Negative: Constitution, Cardiovascular, Respiratory, Neurological, Psychiatric, Hem-Onc, Allergic/Immunologic, Gastrointestinal, Elva tourinary, Musculoskeletal, Integumentary, Endocrine and Eyes/Ears/Nose/Throat Exam Surgical H&P Exam: Normal: HEENT, Normal: Heart, Normal: Lungs, Normal: Extremities, Normal: Abdomen, Normal: Skin and Normal: Neurological Plan Diagnosis/Plan: Unchanged I have reviewed the history and physical and performed a pertinent physical examination on my patient. No changes have occurred unless specified. Time Spent With Patient Time: Total time managing care of this patient today ____ minutes.
--- NOTE | 2022-08-20 09:32 | P.CONAN_ITS ---
Documented by User: Triny Robbins NP 08/20/22 09:33 HPI - Anesthesia Eval Consult details Narrative: 36yo F for Panniculectomy s/p sleeve 2020 with GA-ETT 7 PMFSH Active Problems Active Problems: All Active Problems (Updated 08/15/22 @ 14:06 by Charmaine Santiago, JONAS) Obesity (Acute) BMI 34.0-34.9,adult (Acute) S/P laparoscopic sleeve gastrectomy (Acute) Intestinal malabsorption following gastrectomy (Acute) Well woman exam with routine gynecological exam (Acute) Cervical cancer screening (Acute) Potential exposure to STD (Acute) Excess skin (Acute) Contusion of right knee (Acute) Contusion of left knee (Acute) Omphalitis (Acute) History of repair of hiatal hernia (Acute) BMI 26.0-26.9,adult (Acute) Overweight (BMI 25.0-29.9) (Acute) BMI 25.0-25.9,adult (Acute) Past Medical History Medical History (Updated 08/15/22 @ 14:06 by Charmaine Santiago RN) Adjustment disorder, unspecified Arthritis Asthma BMI 25.0-25.9,adult BMI 26.0-26.9,adult BMI 33.0-33.9,adult BMI 34.0-34.9,adult BMI 35.0-35.9,adult BMI 39.0-39.9,adult BMI 40.0-44.9, adult Gastritis Kidney stone Migraine Morbid (severe) obesity due to excess calories MARYANA on CPAP Overweight (BMI 25.0-29.9) Prediabetes Preoperative examination Shortness of breath Sleep apnea Vitamin A deficiency Vitamin B1 deficiency Vitamin D deficiency Family History Family History Father Hypertension Heart problem Vertigo Mother Dementia Alzheimer disease Pneumathemia Sister Depressed Hypertension Anxiety History of gastric surgery Sister Diabetes mellitus Hypertension Depressed Anxiety Brother No problems noted. Brother No problems noted. 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 If so, by whom?: No Are you DNR?: No Advance Directives: No Advance Directives Information Provided: Yes Advance Directives on File: No Recently lost weight without trying: No Eating poorly because of decreased appetite: No Nutrition Risks: No Nutritional Risk service: No Current occupational status: unemployed Meds Allergies Allergy/AdvReac Type Severity Reaction Status Date / Time Seafood Allergy Severe HIVES/SWELL Uncoded 08/21/22 07:48 ING Home Medications Medication Instructions Recorded Confirmed Last Taken Type fluticasone propionate 110 2 puff inhalation BID PRN Wheezing 08/15/22 08/21/22 Unknown History mcg/actuation HFA aerosol inhaler (Flovent HFA) Exam Exam Date and Time: August 20, 2022 0932 Height,Weight and Vital Signs: Height 5 ft 6 in Weight 68.946 kg Pertinent Lab Results Pertinent Lab Results: Laboratory Tests 08/11/22 08/11/22 08/11/22 06:47 06:47 06:47 WBC 6.7 RBC 4.67 Hgb 13.5 Hct 41.7 MCV 89.3 MCH 28.9 MCHC 32.4 RDW 12.1 Plt Count 253 MPV 13.0 H Immature Gran % (Auto) 0.3 Neut % (Auto) 60.8 Lymph % (Auto) 28.9 Norman % (Auto) 8.0 Eos % (Auto) 1.7 Baso % (Auto) 0.3 Lymph # (Auto) 1.9 Norman # (Auto) 0.5 Eos # (Auto) 0.1 Baso # (Auto) 0.0 Abs Immat Gran (auto) 0.02 Absolute Neuts (auto) 4.1 Absolute Nucleated RBC 0.000 Nucleated RBC % (auto) 0.0 PT 11.3 INR 1.0 APTT 34.2 Sodium 139 Potassium 3.8 Chloride 107 Carbon Dioxide 26 Anion Gap 10 L BUN 10 Creatinine 0.77 Estim Creat Clear Calc TNP Estimated GFR > 60 Random Glucose 86 Estimat Average Glucose Hemoglobin A1c % Calcium 9.2 Total Bilirubin 0.6 AST 11 ALT 8 Alkaline Phosphatase 56 Total Protein 7.4 Albumin 3.9 Blood Type Antibody Screen 08/11/22 08/11/22 06:47 06:47 WBC RBC Hgb Hct MCV MCH MCHC RDW Plt Count MPV Immature Gran % (Auto) Neut % (Auto) Lymph % (Auto) Norman % (Auto) Eos % (Auto) Baso % (Auto) Lymph # (Auto) Norman # (Auto) Eos # (Auto) Baso # (Auto) Abs Immat Gran (auto) Absolute Neuts (auto) Absolute Nucleated RBC Nucleated RBC % (auto) PT INR APTT Sodium Potassium Chloride Carbon Dioxide Anion Gap BUN Creatinine Estim Creat Clear Calc Estimated GFR Random Glucose Estimat Average Glucose 94 Hemoglobin A1c % 4.9 Calcium Total Bilirubin AST ALT Alkaline Phosphatase Total Protein Albumin Blood Type A Positive Antibody Screen NEGATIVE Assessment and Plan Assessment Anesthesia Assessment: Chart Reviewed Final Anesthetic Review Family History of Problems with Anesthesia: No History of Problems with Anesthesia: No Documented by User: Herb Meyers MD 08/21/22 16:51 [facility] Past Medical History Medical History (Updated 08/15/22 @ 14:06 by Charmaine Santiago RN) Adjustment disorder, unspecified Arthritis Asthma BMI 25.0-25.9,adult BMI 26.0-26.9,adult BMI 33.0-33.9,adult BMI 34.0-34.9,adult BMI 35.0-35.9,adult BMI 39.0-39.9,adult BMI 40.0-44.9, adult Gastritis Kidney stone Migraine Morbid (severe) obesity due to excess calories MARYANA on CPAP Overweight (BMI 25.0-29.9) Prediabetes Preoperative examination Shortness of breath Sleep apnea Vitamin A deficiency Vitamin B1 deficiency Vitamin D deficiency Functional capacity: independent ambulation Family History Family History Father Hypertension Heart problem Vertigo Mother Dementia Alzheimer disease Pneumathemia Sister Depressed Hypertension Anxiety History of gastric surgery Sister Diabetes mellitus Hypertension Depressed Anxiety Brother No problems noted. Brother No problems noted. 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 If so, by whom?: No Are you DNR?: No Advance Directives: No Advance Directives Information Provided: Yes Advance Directives on File: No Recently lost weight without trying: No Eating poorly because of decreased appetite: No Nutrition Risks: No Nutritional Risk service: No Current occupational status: unemployed Meds Allergies Allergy/AdvReac Type Severity Reaction Status Date / Time Seafood Allergy Severe HIVES/SWELL Uncoded 08/21/22 07:48 ING Home Medications Medication Instructions Recorded Confirmed Last Taken Type fluticasone propionate 110 2 puff inhalation BID PRN Wheezing 08/15/22 08/21/22 Unknown History mcg/actuation HFA aerosol inhaler (Flovent HFA) Exam Airway Mallampati Class: III TM Dist: >3cm Neck ROM: Full Partial: Upper Loose/Missing/Broken Teeth: Yes (poor dentition overall ) Assessment and Plan Assessment Anesthesia Assessment: Anesthesia Plan Discussed Final Anesthetic Review NPO: Yes ASA Class: II Final Preanesthetic Review: Meds/Allgs Chart Reviewed, Consent Obtained/Reviewed and Anes Risks/Benef Reviewed Patient Risk: Intermediate Procedure Risk: Intermediate Anesthetic Plan Anesthetic Plan: GA and Agree w/ Assess. and Plan Disposition: Standard PACU
[2022-08-20 12:27] LABS: COVID-19 Test Negative (Negative); IDNOW Serial# 08D9AD1C
[2022-08-21] VITALS (12 sets, daily range): BP systolic 95–114; BP diastolic 53–70; PULSE 66–85; RESP 12–18; TEMP 36.3–36.9; O2SAT 97–100
[2022-08-21] MEDS: Lactated Ringers 1,000 ML 80 ML IVCONT (08:04)
--- NOTE | 2022-08-21 10:59 | P.BOP_ITS ---
Brief Operative Note Date of Service: 08/21/22 Pre-op diagnosis: Excess skin and rash Post-op diagnosis: same Procedure: PROCEDURE: Panniculectomy with umbilical transposition and bilateral subcutaneous fat flaps INDICATION: This a 36 year old female who underwent laparoscopic sleeve gastrectomy on 07/18/2020. She had an excellent result achieving a BMI of 24.7 kg/m2 with a total weight loss of 90lbs, or 36.9% of her TBWL. As a result, she has developed panniculitis which has not resolved despite continuous use of clotrimazole ointment as well as skin irritation. On exam she has extreme skin laxity due to massive weight loss, with the abdominal pannus completely hanging 4cm below the pubis. Panniculectomy was recommended. We discussed the two options for the panniculectomy of using a combined vertical and horizontal incisions or just a horizontal (bikini) incision. It was my recommendation to do only horizontal incision based on her body habitus and skin laxity. The patient agreed with this. Risks and complications were discussed with the patient including bleeding, infection, umbilical loss, flap necrosis, asymmetry, dehiscence, seroma, VTE. The patient understood the risks and was in agreement to proceed with surgery. PROCEDURE: The incisions were appropriately marked at the preop area with the patient standing and laying down. After induction of general anesthesia a Moreno catheter and pneumatic compression devices were placed. The patient was prepped and draped in the usual sterile manner and the incisions were marked again and confirmed. The skin was infiltrated with lidocaine and epinephrine. The #10 blade scalpel was used for the large incisions and the #15 blade scalpel for the umbilicus. Cautery was used to divide the subcutaneous tissues until the fascia was identified. Then I used the Sonincision (ideeli) to separate the pannus from the fascia. The inferior incision was made initially and I mobilized the flap for a several centimeters cephalad to the umbilicus. The umbilicus was incised circumferentially and detached from the surrounding tissues all the way to the fascia while its stalk was preserved. With the patient in reflex position I confirmed that the skin flaps were appropriate and would allow for the tissues to come together with reasonable tension. At that point a horizontal incision was made 4 cm above the umbilicus. #10 blade was used for the skin, cautery for the dermis and the Thunderbeat for the remaining tissues. A subcutaneous fat flap was raised from the upper skin flap in order to fill the space under the skin and support the closure of the two flaps. In addition the inferior flap was mobilized caudally for a few centimeters to create a space for the subcutaneous fat flap as well as relieve tension from the closure. A circumferential incision was made at the area where the umbilicus would be re-implanted. The umbilicus was appropriately oriented and was delivered through the defect and was secured in place with a Ray. No bleeding was noted anywhere. One HARLEY drain was placed from the left corner of the horizontal incision across the wound and was secured in place with a silk suture. A total of 14ml of Zynrelef was applied on top of the fascia and under the subcutaneous fat flaps. The subcutaneous fat flap was secured under the inferior flap with several interrupted 3.0 Monocryl sutures. The two flaps were brought together and were attached at the midline of the horizontal incision with a #3.0 Monocryl suture. At that point the umbilicus was properly oriented and was re-approximated to the skin with 8 interrupted 3.0 Monocryl sutures. In a similar fashion the skin flaps were re-approximated with multiple 3.0 Monocryl sutures. The skin was closed in all incisions and umbilicus with 4.0 Monocryl sutures. Steri-strips, xeroform gauzes and gauzes were used to cover the incisions. An abdominal binder was also placed. The was awaken and was transferred to the recover room in a stable condition. I was present and performed the entire procedure. Chato Newby was the list of first job ideas. Osmel Boyle MD, PhD, FACS Surgeon: Shiv Boyle MD Surgeon: Shiv Boyle MD Anesthesia: GETA, local and other (14ml Zynrelef) Was an Psychiatric Registered Nurse used for this Procedure?: No Psychiatric Registered Nurse: James Newby Estimated blood loss (mL): 10 IV fluids (mL): 1,000 Pathology: other (Abdominal pannus) Condition: stable Disposition: PACU
== END 2022-08-21 17:22 | disposition home or self-care (01) ==
PROVIDERS: Physician Assistant Surgical; PCP Nurse Practitioner Family; Visit Provider Surgery
PROC: 0JB80ZZ Excision of Abdomen Subcutaneous Tissue and Fascia, Open Approach (ICD-10-PCS; CPT 15830; principal; 2022-08-21 10:50)
DX: L98.7 Excessive and redundant skin and subcutaneous tissue (principal); K91.2 Postsurgical malabsorption, not elsewhere classified; Z90.3 Acquired absence of stomach [part of]; L08.82 Omphalitis not of newborn; Z98.84 Bariatric surgery status; E66.3 Overweight; Z68.24 Body mass index [BMI] 24.0-24.9, adult; E50.9 Vitamin A deficiency, unspecified; E51.9 Thiamine deficiency, unspecified; E55.9 Vitamin D deficiency, unspecified; J45.909 Unspecified asthma, uncomplicated; F43.20 Adjustment disorder, unspecified; K29.50 Unspecified chronic gastritis without bleeding; M19.90 Unspecified osteoarthritis, unspecified site; G47.33 Obstructive sleep apnea (adult) (pediatric); G43.909 Migraine, unspecified, not intractable, without status migrainosus; Z79.899 Other long term (current) drug therapy; Z79.51 Long term (current) use of inhaled steroids; Z99.89 Dependence on other enabling machines and devices; Z98.890 Other specified postprocedural states; Z90.49 Acquired absence of other specified parts of digestive tract; Z98.51 Tubal ligation status; Z20.822 Contact with and (suspected) exposure to COVID-19
CPT/HCPCS: 15830; 15847; 36415; 80053; 83036; 85025; 85610; 85730; 86850; 86900; 86901; 87635; 88304; C9088; J0690; J1100; J1170; J2250; J2405; J3010; J3370

== ENCOUNTER → 2022-08-29 10:35 | Outpatient (BNVA) | payer OTHER, SELFPAY | PROVIDERS: PCP Nurse Practitioner Family; Visit Provider Physician Assistant Surgical | DX: Z48.89 Encounter for other specified surgical aftercare (principal) | CPT/HCPCS: 99212 ==

== ENCOUNTER → 2022-09-05 13:28 | Outpatient (BNVA) | payer OTHER, SELFPAY | PROVIDERS: PCP Nurse Practitioner Family; Visit Provider Physician Assistant Surgical | DX: Z48.817 Encounter for surgical aftercare following surgery on the skin and subcutaneous tissue (principal); Z98.890 Other specified postprocedural states; Z98.84 Bariatric surgery status | CPT/HCPCS: 99212 ==

== ENCOUNTER → 2022-09-12 11:57 | Outpatient (BNVA) | payer OTHER, SELFPAY | PROVIDERS: PCP Nurse Practitioner Family; Referring Provider Nurse Practitioner Family; Visit Provider Physician Assistant Surgical | DX: Z48.89 Encounter for other specified surgical aftercare (principal); Z98.84 Bariatric surgery status | CPT/HCPCS: 99212 ==

== ENCOUNTER → 2022-09-19 08:42 | Outpatient (BNVA) | payer OTHER, SELFPAY | PROVIDERS: PCP Nurse Practitioner Family; Referring Provider Nurse Practitioner Family; Visit Provider Physician Assistant Surgical | DX: Z98.890 Other specified postprocedural states (principal); Z98.84 Bariatric surgery status | CPT/HCPCS: 99212 ==

== ENCOUNTER 2022-10-27 14:16 | Outpatient (REF) | payer OTHER, SELFPAY ==
[2022-10-27 18:05] LABS: CT PCR NOT DETECTED (Not Detect.); NG PCR NOT DETECTED (Not Detect.)
[2022-10-28 12:09] LABS: BV Int Neg Control Negative (Negative); BV Int Pos Control Positive (Positive)
== END 2022-10-27 14:17 | disposition home or self-care (01) ==
LOC: HO.LNP 14:16
PROVIDERS: PCP Nurse Practitioner Family; Visit Provider Advanced Practice Midwife
DX: R10.2 Pelvic and perineal pain (principal); Z20.2 Contact with and (suspected) exposure to infections with a predominantly sexual mode of transmission; Z98.890 Other specified postprocedural states
CPT/HCPCS: 0353U; 87480; 87510; 87660; 99212

== ENCOUNTER 2022-10-27 14:16 | Outpatient (AMB) | payer OTHER, SELFPAY ==
[2022-10-27 14:36] VITALS: BMI 24.2
--- NOTE | 2022-10-27 14:36 | MHC.OFFVIS ---
Intake Vital Signs 10/27/22 14:36 Height 5 ft 6 in Weight 150 lb BMI 24.2 Intake Visit Reasons: painful intercourse Intake Note: Having pain during intercourse and a lot of pain in her ovaries. Vacation Guide Required: Yes Vacation Guide Language: Persian Information Interpreted: non-clinical & clinical Histology Technologist: Histology Technologist Present (Boo) Allergies Seafood Allergy (Severe, Uncoded 10/27/22 14:38) HIVES/SWELLING Medication List - Last Reconciled 10/27/22 by Anali Wolf CNM acetaminophen 500 mg PO QID PRN fluticasone propionate 110 mcg/actuation (Flovent HFA) 2 puffs inhalation BID PRN Is last menstrual period known: Yes Last menstrual period: 10/18/22 Post menopausal: No HPI painful intercourse HPI Details Patient is here to make sure this nothing wrong with her gynecologicly because she has been having pain when she has sex in her whole front part of her abdomen which she calls her uterus and ovaries. it started right after having abdominal surgery to remove belly fat on August 21 of this year. She is not worried about STDs but is open to testing just as a rule out. [facility] Medical History (Updated 10/27/22 @ 15:18 by Anali Wolf CNM) Adjustment disorder, unspecified Arthritis Asthma BMI 25.0-25.9,adult BMI 26.0-26.9,adult BMI 33.0-33.9,adult BMI 34.0-34.9,adult BMI 35.0-35.9,adult BMI 39.0-39.9,adult BMI 40.0-44.9, adult Gastritis Kidney stone Migraine Morbid (severe) obesity due to excess calories MARYANA on CPAP Overweight (BMI 25.0-29.9) Prediabetes Preoperative examination Shortness of breath Sleep apnea Vitamin A deficiency Vitamin B1 deficiency Vitamin D deficiency Surgical History (Updated 10/27/22 @ 14:42 by DEVI Lim) H/O left knee surgery History of bilateral tubal ligation History of repair of hiatal hernia Hx laparoscopic cholecystectomy Hx of breast reduction, elective Hx of colonoscopy Normal endoscopy S/P laparoscopic sleeve gastrectomy S/P panniculectomy Family History (Updated 10/27/22 @ 14:43 by DEVI Lim) Father Hypertension Heart problem Vertigo Mother Dementia Alzheimer disease Pneumathemia Sister Depressed Hypertension Anxiety History of gastric surgery Sister Diabetes mellitus Hypertension Depressed Anxiety Brother No problems noted. Brother No problems noted. 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 Do you presently have visiting nurse or other home services: No Alcohol intake: never Patient Tobacco Use Status: Never used Tobacco service: No Current occupational status: unemployed Female Reproductive History Menstrual Age of Menarche: 11 Duration of menses: 6-7 days Date of last menstrual period: 10/18/22 control method: other (tubal ligation) Total pregnancies: 2 Full term: 2 Number of Living Children: 2 Date of last pap smear: 06/12/21 (negative) History of abnormal pap smear: Yes (CIN1 2006, 2005) Physical Exam Vital Signs: BMI result Body Mass Index 24.2 Other: Patient has a very well appearing well-approximated transfers abdominal scar side to side from plastic surgery August 21 of this year. On medical assistant ob gyn exam/pelvic exam the cervix uterus and ovaries are nontender but when any palpation approaches ab abdominal wall area that is when she feels tender. External Female Exam: normal external appearance Speculum Exam - Vagina: normal appearance of the vagina and normal vaginal discharge Speculum Exam - Cervix: normal appearance of the cervix Bimanual exam- vagina & uterus: normal bimanual exam, uterine size normal, consistency normal, uterine mobility normal, uterine shape normal and non-tender Bimanual Exam- Adnexa, other: normal adnexae, no masses and No adnexal tenderness Assessment & Plan Assessment & Plan (1) S/P panniculectomy: Code(s): Z98.890 - Other specified postprocedural states (2) Potential exposure to STD: Code(s): Z20.2 - Contact with and (suspected) exposure to infections with a predominantly sexual mode of transmission (3) Cervical cancer screening: Comment: 06/11/2021 Pap equals negative, negative HPV. Code(s): Z12.4 - Encounter for screening for malignant neoplasm of cervix (4) Pelvic pain: Comment: Does not seem to be gynecological in origin suspect healing scar tissue from recent abdominal surgery pelvic ultrasound pending to rule out anything else. Code(s): R10.2 - Pelvic and perineal pain Plan Discussed with the patient that most likely the cause of her discomfort is related to the scar tissue from her recent large abdominal surgery. Will order an ultrasound to rule out anything else gynecological that cannot be palpated on exam however I really suspect that it is related to the scar tissue. She is very happy with the results in general and she is very happy with the results of her hard work and 3 year process and having lost 118 lb so far total with 11 lb being lost with the recent abdominal surgery. Reviewed with the patient how long she took to fully recover from all of her other surgeries including knee surgery and she recalls that it took a year to not feel chronic discomfort in her knee. Discussed that it is possibly likely that the same process might take place in terms of time but she should review this with the providers when she sees them in 2 and half weeks in the meantime we will order an ultrasound and see her for follow-up just to rule out anything else. Cultures were done just to rule everything else out the discharge appeared normal. Orders: Orders Bacterial Vaginosis Panel Today Z20.2 - Contact with and (suspected) exposure to infections with a predominantly sexual mode of transmission CT NG by PCR Today Z20.2 - Contact with and (suspected) exposure to infections with a predominantly sexual mode of transmission US pelvic and transvaginal Today R10.2 - Pelvic and perineal pain, Z12.4 - Encounter for screening for malignant neoplasm of cervix, Z20.2 - Contact with and (suspected) exposure to infections with a predominantly sexual mode of transmission, Z98.890 - Other specified postprocedural states Coding Level of Care Code Est Pt Level 3 (91294) Diagnoses S/P panniculectomy Z98.890 Potential exposure to STD Z20.2 Cervical cancer screening Z12.4 Pelvic pain R10.2
== END 2022-10-27 15:18 | disposition home or self-care (01) ==
LOC: HO.HWS 14:17
PROVIDERS: PCP Nurse Practitioner Family; Visit Provider Advanced Practice Midwife
DX: Z98.890 Other specified postprocedural states (principal); Z20.2 Contact with and (suspected) exposure to infections with a predominantly sexual mode of transmission; R10.2 Pelvic and perineal pain
CPT/HCPCS: 99213

== ENCOUNTER 2022-11-10 10:53 | Outpatient (REF) | payer OTHER, SELFPAY ==
--- NOTE | ~2022-11-10 | US_ITS ---
EXAMINATION: US PELVIS COMPLETE CLINICAL INFORMATION: Additional Notes/Special Instructions Ultrasound to rule out any ob/gyn doctor contribution to the pain surrounding the scar tissue from the panniculectomy : COMPARISON: CT abdomen pelvis 06/30/2022, pelvic ultrasound 08/26/2017 TECHNIQUE: Transabdominal and transvaginal imaging was performed. FINDINGS: The uterus is of normal size and echogenicity measuring 7.5 x 4.1 x 4.9 cm. A regular homogeneous endometrium is identified measuring 0.3 cm. Nabothian cysts in the cervix. Both ovaries are of normal echogenicity and vascular flow present. The right measures 4.2 x 2.3 x 2.2 cm for a volume of 11.1 mL which is minimally greater than expected in size. The left measures 4.0 x 1.9 x 1.7 cm for a volume of 6.8 mL. There is no pelvic free fluid. US/US pelvic and transvaginal IMPRESSION: Right ovary measures 11.1 mL, consider correlation with any symptoms of polycystic ovarian syndrome. Otherwise unremarkable pelvic ultrasound.
== END 2022-11-10 10:54 | disposition home or self-care (01) ==
LOC: HO.US 10:53
PROVIDERS: PCP Nurse Practitioner Family; Visit Provider Nurse Practitioner Family
DX: R10.2 Pelvic and perineal pain (principal); Z20.2 Contact with and (suspected) exposure to infections with a predominantly sexual mode of transmission; Z98.890 Other specified postprocedural states
CPT/HCPCS: 76830; 76856

== ENCOUNTER → 2022-12-30 13:04 | Outpatient (BNVA) | payer MEDICAID, SELFPAY | PROVIDERS: PCP Nurse Practitioner Family; Visit Provider Advanced Practice Midwife ==

== ENCOUNTER 2022-12-30 13:23 | Outpatient (AMB) | payer MEDICAID, SELFPAY ==
--- NOTE | 2022-12-30 13:05 | MHC.OFFVIS ---
Intake Intake Visit Reasons: TV US Follow up Animal Control Supervisor Required: Yes Animal Control Supervisor Language: Thai Allergies Seafood Allergy (Severe, Uncoded 12/30/22 13:05) HIVES/SWELLING Medication List - Last Reconciled 12/30/22 by Anali Wolf CNM acetaminophen 500 mg PO QID PRN fluticasone propionate 110 mcg/actuation (Flovent HFA) 2 puffs inhalation BID PRN Is last menstrual period known: Yes Last menstrual period: 12/13/22 Post menopausal: No HPI TV US Follow up HPI Details Visit tele visit to discuss patient's ultrasound results she was driving but agreed to tail puller so that we could talk on the phone she did not wish to do a video tele visit. She said she was not able to come in because her job would allow her the time. This is to review her ultrasound results. She has been having heavy periods and she says that they are lasting 8 or 9 day the for the last few months. Her period in September came on October 14 and it left on October 23 or her. In November came December 13 and lasted until December 26. She has as it is very heavy and she says that her doctor told her she was anemic the last time He checked. CBCs from June in July reviewed in system and her H&H at the last visit was 13 and 41 I did review the ultrasound with her. Which is essentially within normal limits. I reviewed with her the possibility of placing a Mirena IU S with her next menses to make her periods more manageable for her and not last as long. Even though she was not anemic at the last assessment in July. It might be advisable to repeat a CBC to check for anemia. She is very happy with her panniculectomy results. [facility] Medical History Kidney stone Arthritis BMI 26.0-26.9,adult Overweight (BMI 25.0-29.9) BMI 25.0-25.9,adult BMI 33.0-33.9,adult Prediabetes MARYANA on CPAP Adjustment disorder, unspecified BMI 34.0-34.9,adult BMI 35.0-35.9,adult Vitamin B1 deficiency Vitamin A deficiency Vitamin D deficiency Morbid (severe) obesity due to excess calories BMI 40.0-44.9, adult BMI 39.0-39.9,adult Shortness of breath Preoperative examination Gastritis Sleep apnea Asthma Migraine Surgical History S/P panniculectomy Hx of breast reduction, elective History of repair of hiatal hernia S/P laparoscopic sleeve gastrectomy Normal endoscopy Hx of colonoscopy Hx laparoscopic cholecystectomy History of bilateral tubal ligation H/O left knee surgery Family History Father Hypertension Heart problem Vertigo Mother Dementia Alzheimer disease Pneumathemia Sister Depressed Hypertension Anxiety History of gastric surgery Sister Diabetes mellitus Hypertension Depressed Anxiety Brother No problems noted. Brother No problems noted. Son Asthma Diabetes mellitus Obese abdomen Daughter Asthma Maternal Grandmother Colon cancer Paternal Grandmother Breast cancer Social History Are you a primary child care director to a significant other at home: Yes Do you presently have visiting nurse or other home services: No Alcohol intake: never Patient Tobacco Use Status: Never used Tobacco service: No Current occupational status: unemployed Female Reproductive History Menstrual Age of Menarche: 11 Date of last menstrual period: 12/13/22 Results Reviewed Results Reviewed: [address] [address] Ultrasound Report Signed Patient: Gilda Melendrez MR#: [id number] : 1985 Acct:[id number] Age/Sex: 37 / F ADM Date: 11/10/22 Loc: HO.US Attending Dr: Cielo Coelho CRIB ATTENDANT Ordering Physician: Anali Wolf CNM Date of Service: 11/10/22 Procedure(s): US pelvic and transvaginal Accession Number(s): [id number] cc: Anali Wolf CNM~ EXAMINATION: US PELVIS COMPLETE CLINICAL INFORMATION: Additional Notes/Special Instructions Ultrasound to rule out any dining server contribution to the pain surrounding the scar tissue from the panniculectomy : COMPARISON: CT abdomen pelvis 06/30/2022, pelvic ultrasound 08/26/2017 TECHNIQUE: Transabdominal and transvaginal imaging was performed. FINDINGS: The uterus is of normal size and echogenicity measuring 7.5 x 4.1 x 4.9 cm. A regular homogeneous endometrium is identified measuring 0.3 cm. Nabothian cysts in the cervix. Both ovaries are of normal echogenicity and vascular flow present. The right measures 4.2 x 2.3 x 2.2 cm for a volume of 11.1 mL which is minimally greater than expected in size. The left measures 4.0 x 1.9 x 1.7 cm for a volume of 6.8 mL. There is no pelvic free fluid. US/US pelvic and transvaginal IMPRESSION: Right ovary measures 11.1 mL, consider correlation with any symptoms of polycystic ovarian syndrome. Otherwise unremarkable pelvic ultrasound. Dictated By: Carmelina Us MD Signed By: <Electronically signed by Carmelina Us MD in OV> 11/13/22 2475 DD/ 1121 TD/TT: Energy Conservation Representative: Also reviewed serial CBCs that were done and Pap as well as other labs. Assessment & Plan Assessment & Plan (1) Pelvic pain: Comment: Does not seem to be gynecological in origin suspect healing scar tissue from recent abdominal surgery pelvic ultrasound pending to rule out anything else. Code(s): R10.2 - Pelvic and perineal pain (2) S/P panniculectomy: Code(s): Z98.890 - Other specified postprocedural states (3) Obesity: Code(s): E66.9 - Obesity, unspecified (4) Menorrhagia with regular cycle: Code(s): N92.0 - Excessive and frequent menstruation with regular cycle Plan Visit tele visit to discuss patient's ultrasound results she was driving but agreed to tail puller so that we could talk on the phone she did not wish to do a video tele visit. She said she was not able to come in because her job would allow her the time. This is to review her ultrasound results. She has been having heavy periods and she says that they are lasting 8 or 9 day the for the last few months. Her period in September came on October 14 and it left on October 23 or her. In November came December 13 and lasted until December 26. She has as it is very heavy and she says that her doctor told her she was anemic the last time He checked. CBCs from June in July reviewed in system and her H&H at the last visit was 13 and 41 I did review the ultrasound with her. Which is essentially within normal limits. I reviewed with her the possibility of placing a Mirena IU S with her next menses to make her periods more manageable for her and not last as long. Even though she was not anemic at the last assessment in July. It might be advisable to repeat a CBC to check for anemia. She is very happy with her panniculectomy results. She had a Mirena in the past and was very happy with it and she would like to get 1 again and she recalls that she did not even have a period With it the last time. I asked for her to call the office the 1st day of her next period which will probably be in a couple of weeks and try to arrange a visit for Mirena insertion around heaviest days of her period. Telehealth Telehealth Location of provider rendering services: practice address Location of patient: other (work/ car) Patient Identification confirmed using: Name, : Yes Telehealth method: voice only Patient verbally consented to treatment: Yes Patient verbally consented to billing insurance company: Yes Patient informed of any privacy concerns related to visit: Yes Minutes spent on Phone/Video with Pt.: 11 Coding Level of Care Code Tele Est Pt Level 3 (72043) Diagnoses Pelvic pain R10.2 S/P panniculectomy Z98.890 Obesity E66.9 Menorrhagia with regular cycle N92.0 Comment 2 cr/ 11 speaking w pt/6 chartin=19
== END 2022-12-30 15:29 | disposition home or self-care (01) ==
PROVIDERS: PCP Nurse Practitioner Family; Visit Provider Advanced Practice Midwife
DX: R10.2 Pelvic and perineal pain (principal); Z98.890 Other specified postprocedural states; E66.9 Obesity, unspecified; N92.0 Excessive and frequent menstruation with regular cycle
CPT/HCPCS: 99213

== ENCOUNTER 2023-07-09 16:50 | Emergency (ER) | payer MEDICAID, SELFPAY ==
--- NOTE | ~2023-07-09 | CT_ITS ---
EXAMINATION: CT ABDOMEN AND PELVIS WITHOUT CONTRAST CLINICAL INFORMATION: Right flank pain COMPARISON: CT abdomen and pelvis 06/30/2022 TECHNIQUE: Multidetector volumetric imaging was performed from the superior aspect of the liver through the pubic symphysis. Sagittal and coronal reformatted images were obtained on the technologist's workstation. This CT examination was performed using dose optimization techniques as appropriate, variously including the following: *Automated exposure control *Adjustment of mA and/or kV according to patient size (this includes techniques or standardized protocols for targeted exams where dose is matched to indication/reason for exam; i.e. extremities or head) *Use of iterative reconstruction technique DLP: 610 mGy-cm FINDINGS: LUNG BASES: The visualized lung bases are unremarkable. LIVER, GALLBLADDER, AND BILIARY TREE: The liver is normal in size, shape, and attenuation. No focal hepatic lesion or biliary ductal dilatation is present. The gallbladder has been surgically removed. PANCREAS: Unremarkable. SPLEEN: Unremarkable. ADRENAL GLANDS: Unremarkable. KIDNEYS AND URETERS: The kidneys are normal in size, shape, and attenuation. No hydronephrosis, hydroureter, or calculi seen. No perinephric stranding. BLADDER: Unremarkable. GASTROINTESTINAL TRACT: There is moderate scattered stool and gas seen throughout the colon without any significant distention. The small bowel loops are normal caliber. Appendix is normal caliber. There is gastric sleeve surgery. No free air or free fluid seen. ABDOMINAL WALL: Unremarkable LYMPH NODES: Normal. VASCULAR: Unremarkable. PELVIC VISCERA: The uterus is anteverted and appears unremarkable. There is no adnexal mass or free fluid. Nonspecific calcification is seen in left adnexa OSSEOUS STRUCTURES: No aggressive lytic or sclerotic process seen. CT/CT abdomen pelvis wo IV con IMPRESSION: 1. No acute intra-abdominal process seen. 2. Moderate to significant constipation. 3. No radiopaque urolith or hydroureteronephrosis. 4. No major change since the previous CT abdomen and pelvis exam 06/30/2012 Fleischner guidelines were followed.
[2023-07-09 17:14] VITALS: BP 98/54; PULSE 73; RESP 16; TEMP 36.7; O2SAT 100; BMI 28.3
--- NOTE | 2023-07-09 17:17 | ED_ITS ---
HPI - General Adult General Chief complaint: Abdominal Pain Stated complaint: lower back and abd pain hx of kidney stones Time Seen by Provider: 07/09/23 20:03 Source: patient, RN notes reviewed, old records reviewed and toggler Mode of arrival: ambulatory Limitations: language barrier History of Present Illness HPI narrative: 37-year-old female presents for evaluation of lower abdominal pain with vomiting. Patient reports a history of bariatric surgery as well as a panniculectomy about 6 months ago Denies any other abdominal surgeries She reports 3 days of lower abdominal pain across her lower abdomen radiating to the right lower back She is associated nausea and vomiting without diarrhea Her pain is 8/10, achy, constant Denies any black or bloody stool, no fevers or chills No other complaints or concerns at this time Related Data Home Medications Medication Instructions Recorded Confirmed fluticasone propionate 110 2 puff inhalation BID PRN Wheezing 08/15/22 12/30/22 mcg/actuation HFA aerosol inhaler (Flovent HFA) Previous Rx's Medication Instructions Recorded acetaminophen 500 mg tablet 500 mg PO QID PRN fever or pain 02/04/22 #20 tabs cefuroxime axetil 250 mg tablet 250 mg PO Q12H #10 tabs 07/09/23 magnesium citrate 300 ml PO DAILY #296 mL 07/09/23 ondansetron 4 mg disintegrating 4 mg PO Q8H PRN nausea and 07/09/23 tablet vomiting #20 tabs polyethylene glycol 3350 17 17 g PO DAILY PRN constipation 07/09/23 gram/dose oral powder (Miralax) #238 grams Allergies Allergy/AdvReac Type Severity Reaction Status Date / Time Seafood Allergy Severe HIVES/SWELL Uncoded 07/09/23 17:14 ING Review of Systems 2 Constitutional: Constitutional: Denies body ache(s), Denies chills and Denies fever(s) Eyes: Eyes: Denies blurry vision ENT: Denies sore throat Cardiovascular: Cardiovascular: Denies chest pain and Denies dyspnea Respiratory: Respiratory: Denies cough and Denies dyspnea Gastrointestinal: Gastrointestinal: Reports abdominal pain, Denies hematochezia, Denies diarrhea, Reports nausea and Reports vomiting Musculoskeletal: Musculoskeletal: Denies back pain Integumentary/Breasts: Skin/Breast: Denies rash Psychiatric: Psychiatric: Denies panic attacks [facility] Past Medical History Medical History Kidney stone Arthritis BMI 26.0-26.9,adult Overweight (BMI 25.0-29.9) BMI 25.0-25.9,adult BMI 33.0-33.9,adult Prediabetes MARYANA on CPAP Adjustment disorder, unspecified BMI 34.0-34.9,adult BMI 35.0-35.9,adult Vitamin B1 deficiency Vitamin A deficiency Vitamin D deficiency Morbid (severe) obesity due to excess calories BMI 40.0-44.9, adult BMI 39.0-39.9,adult Shortness of breath Preoperative examination Gastritis Sleep apnea Asthma Migraine Surgical History S/P panniculectomy Hx of breast reduction, elective History of repair of hiatal hernia S/P laparoscopic sleeve gastrectomy Normal endoscopy Hx of colonoscopy Hx laparoscopic cholecystectomy History of bilateral tubal ligation H/O left knee surgery Family History Family History Father Hypertension Heart problem Vertigo Mother Dementia Alzheimer disease Pneumathemia Sister Depressed Hypertension Anxiety History of gastric surgery Sister Diabetes mellitus Hypertension Depressed Anxiety Brother No problems noted. Brother No problems noted. Son Asthma Diabetes mellitus Obese abdomen Daughter Asthma Maternal Grandmother Colon cancer Paternal Grandmother Breast cancer Social History Social History Are you a primary customer care assistant to a significant other at home: Yes Do you presently have visiting nurse or other home services: No Alcohol intake: never Patient Tobacco Use Status: Never used Tobacco Smoked in Last 30 Days: No Use of substances other than those prescribed or required for medical reasons: No Advance Directives: No Advance Directives Information Provided: No service: No Current occupational status: unemployed Physical Exam ED Vital Signs: Vital Signs - 24 hr 07/09/23 17:14 07/09/23 20:41 Temperature 98.1 F 98.4 F Pulse Rate 73 82 Respiratory Rate 16 16 Blood Pressure 98/54 L 112/68 Pulse Oximetry 100 100 Oxygen Delivery Method Room Air Room Air BMI result Body Mass Index 28.3 Const General: healthy appearing, comfortable, no acute distress, alert and awake Nutritional Appearance: well nourished Orientation/consciousness: patient oriented x3 HENMT Head: Yes normocephalic and Yes atraumatic Eyes Eyelids: Yes eyelids normal Conjunctivae: conjunctivae normal Sclerae: sclerae normal Corneas: corneas normal Pupils: Equal, round and reactive pupils present EOM: EOMs intact bilaterally Neck Neck: Yes full ROM Resp Effort & Inspection: normal respiratory effort, able to speak in complete sentences and not labored GI Other: Tenderness across the lower abdomen without rebound or guarding Inspection: No distended Palpation (GI): Soft to palpation, not firm, Tenderness to palpation present (GI) in the LLQ, in the RLQ and suprapubicly, no guarding and not rigid Skin General skin exam: elasticity normal Neuro General: patient oriented x3 Cranial nerves: Yes Equal, round and reactive pupils present and Yes Bilaterally intact EOM present Cognition (Neuro): normal cognition Extrem Other: Moving all extremities well without any obvious deformities Course Course Course Narrative: This is an RME: Additional HPI, ROS, PE not included below will be deferred to primary provider. 37-year-old female presents with 3 days of right-sided flank pain with radiation to abdomen and dark urine history of kidney stones feels similar. Plan labs, urine, CT Reevaluation(s) Reevaluation #1: Patient re-evaluated, she reports feeling better. Her blood pressure improved to IV fluids. Her CT scan was significant for constipation but no other acute process. She does have a mild UTI. We will discharge the patient with cefuroxime, MiraLax and Zofran. All results were discussed with the patient Time: 21:41 Medications Administered Discontinued Medications Generic Name Dose Route Start Last Admin Trade Name Freq PRN Reason Stop Dose Admin Sodium Chloride 1,000 mls @ 999 mls/hr 07/09/23 20:30 07/09/23 20:41 Ns IV 07/09/23 21:30 999 mls/hr .Q1H1M YOLY Administration Ondansetron HCl 4 mg 07/09/23 17:18 07/09/23 17:20 Ondansetron Odt 4 Mg Tab.Rapdis TRANSLINGU 07/09/23 17:19 4 mg ONCE ONE Administration Ondansetron HCl 4 mg 07/09/23 20:19 07/09/23 20:41 Ondansetron Hcl 4 Mg/2 Ml Vial IVPUSH 07/09/23 20:20 4 mg ONCE ONE Administration Medical Decision Making Medical Decision Making [facility] Narrative: 37-year-old female female presents for evaluation of 3 days of lower abdominal pain. She reports a history of kidney stones. She had labs, UA and CT scan of the abdomen pelvis ordered in triage. The patient's UA is still pending to evaluate for infectious cause. Patient's labs show no leukocytosis or left shift. Platelet count within normal limits, electrolytes within normal limits. Patient's creatinine is 0.80 with a GFR greater than 60. CT scan of the abdomen pelvis shows no acute intra-abdominal process seen. The patient does have moderate to significant constipation. This may be contributing to her pain. No evidence of obstructive uropathy. Differential Diagnosis Differential Diagnoses: The differential diagnosis associated with the presentation includes UTI Abdominal pain Constipation Obstructive uropathy Gastroenteritis Lab Data [facility] Lab Attestation statement: I reviewed the patient's lab results. See above 07/09/23 17:34 07/09/23 17:34 Labs: Lab Results 07/09/23 07/09/23 Range/Units 17:34 20:38 WBC 8.6 (4.8-10.8) X10*3/uL RBC 4.43 (4.20-5.50) X10*6/uL Hgb 12.7 (12.0-16.0) g/dl Hct 39.5 (37.0-47.0) % MCV 89.2 (80.0-98.0) fL MCH 28.7 (27.0-33.0) pg MCHC 32.2 (31.0-35.0) g/dl RDW 12.2 (11.0-16.0) % Plt Count 268 (160-400) X10*3/uL MPV 11.7 (9.4-12.3) fL Immature Gran % (Auto) 0.8 H (0.0-0.4) % Neut % (Auto) 57.5 (45-73) % Lymph % (Auto) 31.7 (20-40) % Jefferson % (Auto) 7.8 (2-11) % Eos % (Auto) 2.0 (0-4) % Baso % (Auto) 0.2 (0-2) % Lymph # (Auto) 2.7 (1.2-4.9) X10*3/uL Jefferson # (Auto) 0.7 (0.1-1.2) X10*3/uL Eos # (Auto) 0.2 (0.0-0.4) X10*3/uL Baso # (Auto) 0.0 (0.0-0.2) X10*3/uL Abs Immat Gran (auto) 0.07 H (0.00-0.03) X10*3/uL Absolute Neuts (auto) 4.9 (2.0-8.3) x10*3/uL Absolute Nucleated RBC 0.000 (0.0-0.012) X10*3/uL Nucleated RBC % (auto) 0.0 (0.0-0.2) /100WBC Sodium 142 (135-145) mmol/L Potassium 4.0 (3.3-5.1) mmol/L Chloride 108 (96-108) mmol/L Carbon Dioxide 26 (22-29) mmol/L Anion Gap 12 (12-20) BUN 7 L (9-16) mg/dL Creatinine 0.80 (0.5-1.4) mg/dL Estim Creat Clear Calc 97.0 Estimated GFR > 60 Random Glucose 95 (60-115) mg/dL Calcium 8.9 (8.4-10.2) mg/dL Total Bilirubin 0.3 (0.0-1.0) mg/dL AST 13 (5-31) U/L ALT 13 (0-31) U/L Alkaline Phosphatase 57 (39-117) U/L Total Protein 7.2 (6.5-8.0) g/dL Albumin 3.6 (3.5-5.0) g/dL Urine Color Dark Yellow Urine Appearance Cloudy Urine pH 7.0 (5.0-9.0) Ur Specific Blanco 1.025 (1.005-1.025) Urine Protein Trace (Neg-Trace) mg/dL Urine Glucose (UA) Negative (Negative) mg/dL Urine Ketones Trace (Negative) mg/dL Urine Blood Negative (Negative) Urine Nitrite Negative (Negative) Ur Leukocyte Esterase Trace H (Negative) Urine RBC 0-2 (0-2) /HPF Urine WBC 0-5 (0-5) /HPF Ur Squamous Epith Cells >20 (0-2) /HPF Urine Bacteria 2+ (None Seen) Hyaline Casts 0-2 (0-2) /LPF Urine Yeast Present Radiology Impression Discussion of test interpretation with radiology: I have reviewed the radiologist's reading. (IMPRESSION: 1. No acute intra-abdominal process seen. 2. Moderate to significant constipation. 3. No radiopaque urolith or hydroureteronephrosis. 4. No major change since the previous CT abdomen and pelvis exam 06/30/2012) Discharge Plan Discharge Clinical Impression: Constipation, UTI (urinary tract infection) Patient Disposition: Home, Self-Care Instructions: Constipation (ED), Urinary Tract Infection in Women (ED) Additional Instructions: Your urine sample showed a UTI, take cefuroxime twice daily for the next 5 days. Increase fluid intake Your CT scan showed constipation I recommend you take MiraLax every night for the next 2 weeks and magnesium citrate tomorrow to help with the constipation Increase fiber intake in your diet Follow-up with your primary doctor Prescriptions: New ondansetron 4 mg tablet,disintegrating 4 mg PO Q8H PRN (Reason: nausea and vomiting) Qty: 20 0RF cefuroxime axetil 250 mg tablet 250 mg PO Q12H Qty: 10 0RF polyethylene glycol 3350 [Miralax] 17 gram/dose powder 17 g PO DAILY PRN (Reason: constipation) Qty: 238 0RF magnesium citrate Solution 300 ml PO DAILY Qty: 296 0RF No Action acetaminophen 500 mg tablet 500 mg PO QID PRN (Reason: fever or pain) Qty: 20 0RF fluticasone propionate [Flovent HFA] 110 mcg/actuation HFA aerosol inhaler 2 puff inhalation BID PRN (Reason: Wheezing) Stand Alone Forms: Work/School Release
[2023-07-09] MEDS: Ondansetron ODT 4 MG TAB.RAPDIS TRANSLINGU (17:20)
[2023-07-09 17:42] LABS: MANUAL DIFF FLAG NO
[2023-07-09 17:57] LABS: Alanine Aminotransferase 13 U/L (0-31); Albumin Level 3.6 g/dL (3.5-5.0); Alkaline Phosphatase 57 U/L (39-117); Anion Gap 12 (12-20); Aspartate Amino Transferase 13 U/L (5-31); Bilirubin Total 0.3 mg/dL (0.0-1.0); Blood Urea Nitrogen 7 mg/dL (9-16); Calcium 8.9 mg/dL (8.4-10.2); Carbon Dioxide 26 mmol/L (22-29); Chloride 108 mmol/L (96-108); Estimated Glomerular Filt Rate > 60; Glucose Random 95 mg/dL (60-115); Sodium 142 mmol/L (135-145); Total Protein 7.2 g/dL (6.5-8.0)
[2023-07-09 18:01] LABS: Basophils Percent Auto 0.2 % (0-2); Eosinophils Absolute Auto 0.2 X10*3/uL (0.0-0.4); Hematocrit 39.5 % (37.0-47.0); Hemoglobin 12.7 g/dl (12.0-16.0); Imm Gran Abs Auto 0.07 X10*3/uL (0.00-0.03); Imm Gran Pct Auto 0.8 % (0.0-0.4); Lymphocytes Absolute Auto 2.7 X10*3/uL (1.2-4.9); Lymphocytes Percent Auto 31.7 % (20-40); Mean Corpuscular HGB Conc 32.2 g/dl (31.0-35.0); Mean Corpuscular Hemoglobin 28.7 pg (27.0-33.0); Mean Corpuscular Volume 89.2 fL (80.0-98.0); Mean Platelet Volume 11.7 fL (9.4-12.3); Monocytes Absolute Auto 0.7 X10*3/uL (0.1-1.2); Monocytes Percent Auto 7.8 % (2-11); Neutrophils Absolute Auto 4.9 x10*3/uL (2.0-8.3); Neutrophils Percent Auto 57.5 % (45-73); Platelet Count 268 X10*3/uL (160-400); Red Blood Count 4.43 X10*6/uL (4.20-5.50); Red Cell Distribution Width 12.2 % (11.0-16.0); White Blood Count 8.6 X10*3/uL (4.8-10.8)
[2023-07-09 20:41] VITALS: BP 112/68; PULSE 82; RESP 16; TEMP 36.9; O2SAT 100
[2023-07-09] MEDS: 0.9 % Sodium Chloride 1,000 ML 999 ML IV (20:41)
[2023-07-09] MEDS: ondansetron HCL 4 MG/2 ML VIAL IVPUSH (20:41)
[2023-07-09 20:43] LABS: Appearance Urine Cloudy; Color Urine Dark Yellow; Glucose Urine UA Negative (Negative); Leukocyte Esterase Urine Trace (Negative); Nitrite Urine Negative (Negative); Specific Gravity - Urine 1.025 (1.005-1.025); UMIC TRIGGER UACC YES; Urine Blood Negative (Negative); Urine Ketones Trace mg/dL (Negative); Urine Protein Trace mg/dL (Neg-Trace)
[2023-07-09 20:58] LABS: Bacteria Urine 2+ (None Seen); Hyaline Casts Urine 0-2 /LPF (0-2); RBC Urine 0-2 /HPF (0-2); Squamous Epithelial Cell Urine >20 /HPF (0-2); WBC Urine 0-5 /HPF (0-5)
[2023-07-09] MEDS: Acetaminophen 325 MG TABLET 650 MG PO (22:02)
[2023-07-09 22:06] VITALS: BP 112/68; PULSE 82; RESP 16; TEMP 36.9; O2SAT 98
== END 2023-07-09 22:07 | disposition home or self-care (01) ==
PROVIDERS: Physician Assistant; Emergency Provider Internal Medicine; PCP Nurse Practitioner Family
DX: K59.00 Constipation, unspecified (principal); N39.0 Urinary tract infection, site not specified; R10.9 Unspecified abdominal pain; M54.2 Cervicalgia; R11.2 Nausea with vomiting, unspecified; Z79.899 Other long term (current) drug therapy
CPT/HCPCS: 36415; 74176; 80053; 81001; 85025; 96361; 96374; 99284; 99285; J2405

== ENCOUNTER 2023-12-25 12:32 | Emergency (ER) | payer MEDICAID, SELFPAY ==
--- NOTE | ~2023-12-25 | CT_ITS ---
EXAMINATION: CT ABDOMEN AND PELVIS WITHOUT CONTRAST CLINICAL INFORMATION: Left lower quadrant pain. COMPARISON: CT abdomen pelvis dated July 09, 2023. TECHNIQUE: Multidetector volumetric imaging was performed from the superior aspect of the liver through the pubic symphysis. Sagittal and coronal reformatted images were obtained on the technologist's workstation. This CT examination was performed using dose optimization techniques as appropriate, variously including the following: *Automated exposure control *Adjustment of mA and/or kV according to patient size (this includes techniques or standardized protocols for targeted exams where dose is matched to indication/reason for exam; i.e. extremities or head) *Use of iterative reconstruction technique DLP: 632 mGy-cm FINDINGS: LUNG BASES: The visualized lung bases are unremarkable. LIVER, GALLBLADDER, AND BILIARY TREE: The liver is normal in size, shape, and attenuation. No focal hepatic lesion or biliary ductal dilatation is present. The gallbladder is surgically absent. PANCREAS: Unremarkable. SPLEEN: Unremarkable. ADRENAL GLANDS: Unremarkable. KIDNEYS AND URETERS: The kidneys are normal in size, shape, and attenuation. No hydronephrosis, hydroureter, or calculi seen. No perinephric stranding. BLADDER: The urinary bladder is decompressed. GASTROINTESTINAL TRACT: The small and large bowel are normal in caliber. There is no pericolonic inflammatory stranding. There are changes status post gastric surgery. The appendix is unremarkable. ABDOMINAL WALL: No significant hernia is appreciated. LYMPH NODES: No lymphadenopathy. VASCULAR: No abdominal aortic aneurysm. PELVIC VISCERA: Unremarkable. No adnexal mass. OSSEOUS STRUCTURES: Unremarkable. CT/CT abdomen pelvis wo IV con IMPRESSION: No acute intra-abdominal/intrapelvic abnormality. Fleischner guidelines were followed. Electronically signed by: Marky Pulido DO 12/25/2023 06:14 PM EDT
--- NOTE | 2023-12-25 12:47 | ED.GENADULT ---
HPI - General Adult General Chief complaint: Abdominal Pain Stated complaint: Flu Symptoms Time Seen by Provider: 12/25/23 16:43 Source: patient Mode of arrival: ambulatory Limitations: no limitations History of Present Illness ED Provider: MT AMADOR PA-C HPI narrative: 38 year old female with past medical history significant for asthma, MARYANA on CPAP, migraine, morbid obesity status post gastric bypass presents to the ED today for evaluation of subjective fevers, headache, left lower quadrant abdominal pain, nausea, vomiting, diarrhea x2 days. Last episode of vomiting was yesterday. Endorses multiple episodes of diarrhea the past 2 days, only one episode of diarrhea today. Report TMAX on 100.7 at home yesterday. Took tylenol this morning. Attempted to go to work however had to leave early d/t symptoms. Denies flank pain, dysuria, hematuria, vaginal discharge, hematemesis, hematochezia, melena. Denies recent travel outside of the country. Denies recent antibiotics. Patient primarily Rwandan speaking. I did offer night time babysitter service to her however she feels more comfortable with her interpreting for her. He is at bedside. Related Data Home Medications ?Medication ?Instructions ?Recorded ?Confirmed fluticasone propionate 110 2 puff inhalation BID PRN Wheezing 08/15/22 12/30/22 mcg/actuation HFA aerosol inhaler (Flovent HFA) Previous Rx's ?Medication ?Instructions ?Recorded acetaminophen 500 mg tablet 500 mg PO QID PRN fever or pain 02/04/22 #20 tabs cefuroxime axetil 250 mg tablet 250 mg PO Q12H #10 tabs 07/09/23 magnesium citrate 300 ml PO DAILY #296 mL 07/09/23 ondansetron 4 mg disintegrating 4 mg PO Q8H PRN nausea and 07/09/23 tablet vomiting #20 tabs polyethylene glycol 3350 17 17 g PO DAILY PRN constipation 07/09/23 gram/dose oral powder (Miralax) #238 grams nitrofurantoin 100 mg PO BID 7 days #14 caps 12/25/23 monohydrate/macrocrystals 100 mg capsule ondansetron 4 mg disintegrating 4 mg PO DAILY PRN nausea and 12/25/23 tablet vomiting 5 days #10 tabs Allergies Allergy/AdvReac Type Severity Reaction Status Date / Time Seafood Allergy Severe HIVES/SWELL Uncoded 12/25/23 12:49 ING Review of Systems Review of Systems: Constitutional: No fever, chills, fatigue, night sweats, weight changes, +fevers ENT/Mouth: No ear pain, hearing loss, nasal congestion, sinus pain, rhinorrhea, sore throat Eyes: No eye pain, swelling, redness, vision changes, discharge Cardio: No chest pain, palpitations, WHITLEY, orthopnea, peripheral edema Pulm: No SOB, cough, sputum, wheezing, dyspnea, hemoptysis GI: No hematemesis,constipation, hematochezia, melena, +nausea, +vomiting, +diarrhea, +LLQ pain : No irregular bleeding, dysuria, frequency, urgency, hesitancy, hematuria, flank pain, urinary flow changes, urinary incontinence or retention MSK: No back pain, neck pain, joint pain, myalgias Skin: No lesions, rashes Neuro: No weakness, numbness, paresthesias, LOC, dizziness, headache Psych: No anxiety/panic, depression, SI/HI, AH/VH All other systems reviewed and are negative. [facility] Past Medical History Attestation statement: The following information was validated with the patient. Source: old records reviewed and nursing notes reviewed Medical History Kidney stone Arthritis BMI 26.0-26.9,adult Overweight (BMI 25.0-29.9) BMI 25.0-25.9,adult BMI 33.0-33.9,adult Prediabetes MARYANA on CPAP Adjustment disorder, unspecified BMI 34.0-34.9,adult BMI 35.0-35.9,adult Vitamin B1 deficiency Vitamin A deficiency Vitamin D deficiency Morbid (severe) obesity due to excess calories BMI 40.0-44.9, adult BMI 39.0-39.9,adult Shortness of breath Preoperative examination Gastritis Sleep apnea Asthma Migraine Surgical History S/P panniculectomy Hx of breast reduction, elective History of repair of hiatal hernia S/P laparoscopic sleeve gastrectomy Normal endoscopy Hx of colonoscopy Hx laparoscopic cholecystectomy History of bilateral tubal ligation H/O left knee surgery Family History Family History Father Hypertension Heart problem Vertigo Mother Dementia Alzheimer disease Pneumathemia Sister Depressed Hypertension Anxiety History of gastric surgery Sister Diabetes mellitus Hypertension Depressed Anxiety Brother No problems noted. Brother No problems noted. Son Asthma Diabetes mellitus Obese abdomen Daughter Asthma Maternal Grandmother Colon cancer Paternal Grandmother Breast cancer Social History Social History Are you a primary youth career specialist to a significant other at home: Yes Do you presently have visiting nurse or other home services: No Alcohol intake: never Patient Tobacco Use Status: Never used Tobacco Advance Directives: No Advance Directives Information Provided: Yes service: No Current occupational status: unemployed Physical Exam ED Vital Signs: Vital Signs - 24 hr 12/25/23 12:48 12/25/23 17:29 Temperature 98.0 F 97.8 F Pulse Rate 91 100 Respiratory Rate 18 20 Blood Pressure 111/78 112/83 Pulse Oximetry 100 99 Oxygen Delivery Method Room Air BMI result Body Mass Index 27.2 Vital signs stable, afebrile. General: Well appearing, in no acute distress. Skin: Warm, dry, intact. No rashes or lesions. Head: Normocephalic, atraumatic. EENT: Hearing is intact b/l. Conjunctiva clear. Sclera is anicteric. PERRLA. EOM intact. Moist mucous membranes.? Neck: Supple without LAD. FROM. Trachea midline.? Cardiac: Chest wall symmetric. RRR. No MRG. No JVD. Lungs: Normal respiratory effort without accessory muscle use. CTA bilaterally. No rales, rhonchi, or wheezes.? Abdomen: Soft, nondistended, tender to palpation of left lower quadrant with voluntary guarding. No rebound tenderness. Positive bowel sounds x4. Back: No midline spinous or paraspinal tenderness. No step off deformity. Ext: Upper and lower extremities atraumatic, without tenderness, deformity, swelling or erythema. Full ROM throughout. Strength 5/5 throughout. Capillary refill <2 seconds in all extremities. Pulses 2+ equal and bilateral. Neuro: AOx3. Normal speech. Ambulating with steady gait. Psych: Appropriate mood and affect. Responds appropriately to questions. Course Course Course Narrative: RME performed by Vee Marie PA-C. Patient is a 38 year old assigned [male/female] at presenting to the emergency department with nausea, vomiting, diarrhea, and a headache. Patient states over the last couple of days she has had nausea, vomiting, diarrhea, and a headache. Detailed physical exam and review of systems are deferred to the agriculture engineer. Labs and swabs ordered. Patient placed back in the waiting room pending room availability and results. Reevaluation(s) Reevaluation #1: 1945 -- CBC without leukocytosis or left shift. No anemia. H&H stable. Chemistry without acute electrolyte abnormality requiring intervention. No MATTHEW. Normal liver function. Beta quant less than 2. She was tested negative for flu, RSV, COVID, strep throat. CT scan abdomen/pelvis does not demonstrate intra-abdominal pathology. No evidence of acute appendicitis. No noted thickening of bowel wall. No free fluid. UA showing moderate leukocyte esterase, 6-10 WBCs, 3-5 squamous epithelial cells, 3+ urine bacteria. Positive for urinary tract infection. Will send nitrofurantoin to pharmacy for treatment. > patient likely has a viral gastroenteritis. Will send Zofran to pharmacy for nausea. Advised to take Imodium or Pepto-Bismol at home as needed for diarrhea. Patient has remained stable throughout ED visit today. Discussed worrisome signs and symptoms and when to return to the ED. All questions answered at this time. Patient is agreeable with disposition and stable for discharge. Medications Administered Discontinued Medications Generic Name Dose Route Start Last Admin Trade Name Freq PRN Reason Stop Dose Admin Sodium Chloride 1,000 mls @ 999 mls/hr 12/25/23 17:00 12/25/23 18:05 Ns IV 12/25/23 18:00 999 mls/hr .Q1H1M [facility] Administration Medical Decision Making Medical Decision Making [facility] Narrative: 38 year old female with past medical history significant for asthma, MARYANA on CPAP, migraine, morbid obesity status post gastric bypass presents to the ED today for evaluation of subjective fevers, headache, left lower quadrant abdominal pain, nausea, vomiting, diarrhea x2 days. Vital signs stable, afebrile. She is nontoxic appearing and in NAD. On exam, bilateral EACs and TMs WNL. Posterior oropharynx WNL. Skin warm, dry, intact, no rashes. Abdomen is soft, nondistended, tender to palpation of left lower quadrant with voluntary guarding. No rebound tenderness. Normoactive bowel sounds x4. No CVAT bilaterally. Lungs are CTA bilaterally, no rhonchi or wheezes. Differential diagnosis includes viral syndrome, gastroenteritis, anemia, electrolyte abnormality, dehydration. Lower suspicion for diverticulosis/ diverticulitis, IUP, urinary tract infection. Unlikely appendicitis, pancreatitis, cholescystitis (s/p cholecystectomy), or acute abdomen, pneumonia. Unlikely C diff. Plan for blood work, urine, CT abdomen/ pelvis, IVF, zofran, and re-evaluation. Differential Diagnosis Differential Diagnoses: The differential diagnosis associated with the presentation includes As above Admission/Observation Not indicated Lab Data MDM Lab Attestation statement: I reviewed the patient's lab results. As above 12/25/23 13:14 12/25/23 13:14 Labs: Lab Results 12/25/23 12/25/23 Range/Units 13:14 18:33 WBC 9.6 (4.8-10.8) X10*3/uL RBC 4.80 (4.20-5.50) X10*6/uL Hgb 13.8 (12.0-16.0) g/dl Hct 42.3 (37.0-47.0) % MCV 88.1 (80.0-98.0) fL MCH 28.8 (27.0-33.0) pg MCHC 32.6 (31.0-35.0) g/dl RDW 12.0 (11.0-16.0) % Plt Count 246 (160-400) X10*3/uL MPV 12.5 H (9.4-12.3) fL Immature Gran % (Auto) 0.3 (0.0-0.4) % Neut % (Auto) 66.9 (45-73) % Lymph % (Auto) 21.2 (20-40) % Camp % (Auto) 9.8 (2-11) % Eos % (Auto) 1.6 (0-4) % Baso % (Auto) 0.2 (0-2) % Lymph # (Auto) 2.0 (1.2-4.9) X10*3/uL Camp # (Auto) 0.9 (0.1-1.2) X10*3/uL Eos # (Auto) 0.2 (0.0-0.4) X10*3/uL Baso # (Auto) 0.0 (0.0-0.2) X10*3/uL Abs Immat Gran (auto) 0.03 (0.00-0.03) X10*3/uL Absolute Neuts (auto) 6.4 (2.0-8.3) x10*3/uL Absolute Nucleated RBC 0.000 (0.0-0.012) X10*3/uL Nucleated RBC % (auto) 0.0 (0.0-0.2) /100WBC Sodium 138 (135-145) mmol/L Potassium 3.6 (3.3-5.1) mmol/L Chloride 106 (96-108) mmol/L Carbon Dioxide 25 (22-29) mmol/L Anion Gap 11 L (12-20) BUN 6 L (9-16) mg/dL Creatinine 0.77 (0.5-1.4) mg/dL Estim Creat Clear Calc 101.4 Estimated GFR > 60 Random Glucose 78 (60-115) mg/dL Calcium 9.2 (8.4-10.2) mg/dL Magnesium 2.1 (1.6-2.6) mg/dL Total Bilirubin 0.4 (0.0-1.0) mg/dL AST 14 (5-31) U/L ALT 8 (0-31) U/L Alkaline Phosphatase 62 (39-117) U/L Total Protein 7.9 (6.5-8.0) g/dL Albumin 4.0 (3.5-5.0) g/dL Beta HCG, Quant < 2 mIU/mL Urine Color Yellow Urine Appearance Cloudy Urine pH 5.5 (5.0-9.0) Ur Specific [place] 1.025 (1.005-1.025) Urine Protein Trace (Neg-Trace) mg/dL Urine Glucose (UA) Negative (Negative) mg/dL Urine Ketones Trace (Negative) mg/dL Urine Blood Moderate (2+) H (Negative) Urine Nitrite Negative (Negative) Ur Leukocyte Esterase Moderate (2+) H (Negative) Urine RBC 3-5 H (0-2) /HPF Urine WBC 6-10 (0-5) /HPF Ur Squamous Epith Cells 3-5 (0-2) /HPF Urine Bacteria 3+ (None Seen) Hyaline Casts 0-2 (0-2) /LPF Influenza Type A (PCR) NEGATIVE (Negative) Influenza Type B (PCR) NEGATIVE (Negative) RSV RNA Qual (PCR) NEGATIVE (Negative) SARS-CoV-2 RNA (RT-PCR) NEGATIVE (Negative) S. pyogenes GrpA SHELDON Negative (Negative) Independent Interpretation I performed an independent interpretation of an: CT Scan Interpretation: CT abdomen/pelvis without acute intra-abdominal pathology, agree with radiologist's interpretation. Radiology Impression Discussion of test interpretation with radiology: I have reviewed the radiologist's reading. Radiologist Impression: EXAMINATION: CT ABDOMEN AND PELVIS WITHOUT CONTRAST CLINICAL INFORMATION: Left lower quadrant pain. COMPARISON: CT abdomen pelvis dated July 09, 2023. TECHNIQUE: Multidetector volumetric imaging was performed from the superior aspect of the liver through the pubic symphysis. Sagittal and coronal reformatted images were obtained on the technologist's workstation. This CT examination was performed using dose optimization techniques as appropriate, variously including the following: *Automated exposure control *Adjustment of mA and/or kV according to patient size (this includes techniques or standardized protocols for targeted exams where dose is matched to indication/reason for exam; i.e. extremities or head) *Use of iterative reconstruction technique DLP: 632 mGy-cm FINDINGS: LUNG BASES: The visualized lung bases are unremarkable. LIVER, GALLBLADDER, AND BILIARY TREE: The liver is normal in size, shape, and attenuation. No focal hepatic lesion or biliary ductal dilatation is present. The gallbladder is surgically absent. PANCREAS: Unremarkable. SPLEEN: Unremarkable. ADRENAL GLANDS: Unremarkable. KIDNEYS AND URETERS: The kidneys are normal in size, shape, and attenuation. No hydronephrosis, hydroureter, or calculi seen. No perinephric stranding. BLADDER: The urinary bladder is decompressed. GASTROINTESTINAL TRACT: The small and large bowel are normal in caliber. There is no pericolonic inflammatory stranding. There are changes status post gastric surgery. The appendix is unremarkable. ABDOMINAL WALL: No significant hernia is appreciated. LYMPH NODES: No lymphadenopathy. VASCULAR: No abdominal aortic aneurysm. PELVIC VISCERA: Unremarkable. No adnexal mass. OSSEOUS STRUCTURES: Unremarkable. CT/CT abdomen pelvis wo IV con IMPRESSION: No acute intra-abdominal/intrapelvic abnormality. Fleischner guidelines were followed. Electronically signed by: Marky Pulido DO 12/25/2023 06:14 PM EDT RP External Record Review External record reviewed: Inpatient record, Office record, Outpatient record, Prior outpatient labs, Prior outpatient radiology, Primary care record and Outside ED record Prescription Management I considered prescription management with: Other (Zofran) Social Determinants Patient?s care significantly limited by Social Determinants of Health including: Other Social Determinant of Health Critical Care Time Critical Care Time Critical Care Time: No Discharge Plan Discharge Clinical Impression: Gastroenteritis, Urinary tract infection Patient Disposition: Home, Self-Care Instructions: Urinary Tract Infection in Women (ED), Gastroenteritis (ED), Acute Diarrhea (ED) Additional Instructions: Your urine today was positive for infection. Nitrofurantoin is an antibiotic that has been sent to your pharmacy. Take this as prescribed and do not miss any doses. You must complete the entire course of antibiotics. If you do not, there is a risk of the infection coming back or worsening. Your lab workup today was reassuring.? The CT scan of your abdomen is normal. Your symptoms are most consistent with a viral stomach bug, also known as gastroenteritis.? The treatment for this is supportive care. Symptoms usually resolve on their own in 48-72 hours.? The recommendation is rest and lots of oral hydration.? For the next 24 hours, stick to a THAO diet (bananas rice, applesauce, tea, and toast) Zofran is an anti-nausea medication. This has been sent to your pharmacy for you to take as needed for nausea.? You can also try over the counter Pepto Bismol or Imodium as needed for upset stomach and diarrhea.? Follow up with your primary care provider this week. If you develop new or worsening symptoms call 911 or come back to the ER for further evaluation. Prescriptions: New ondansetron 4 mg tablet,disintegrating 4 mg PO DAILY PRN (Reason: nausea and vomiting) 5 Days Qty: 10 0RF nitrofurantoin monohyd/m-cryst 100 mg capsule 100 mg PO BID 7 Days Qty: 14 0RF Rx Instructions: must administer with a meal/food No Action acetaminophen 500 mg tablet 500 mg PO QID PRN (Reason: fever or pain) Qty: 20 0RF ondansetron 4 mg tablet,disintegrating 4 mg PO Q8H PRN (Reason: nausea and vomiting) Qty: 20 0RF cefuroxime axetil 250 mg tablet 250 mg PO Q12H Qty: 10 0RF polyethylene glycol 3350 [Miralax] 17 gram/dose powder 17 g PO DAILY PRN (Reason: constipation) Qty: 238 0RF magnesium citrate Solution 300 ml PO DAILY Qty: 296 0RF fluticasone propionate [Flovent HFA] 110 mcg/actuation HFA aerosol inhaler 2 puff inhalation BID PRN (Reason: Wheezing) Print Language: Rwandan
[2023-12-25 12:48] VITALS: BP 111/78; PULSE 91; RESP 18; TEMP 36.7; O2SAT 100; BMI 27.2
[2023-12-25 13:28] LABS: MANUAL DIFF FLAG NO
[2023-12-25 13:34] LABS: Basophils Percent Auto 0.2 % (0-2); Eosinophils Absolute Auto 0.2 X10*3/uL (0.0-0.4); Eosinophils Percent Auto 1.6 % (0-4); Hematocrit 42.3 % (37.0-47.0); Hemoglobin 13.8 g/dl (12.0-16.0); Imm Gran Abs Auto 0.03 X10*3/uL (0.00-0.03); Imm Gran Pct Auto 0.3 % (0.0-0.4); Lymphocytes Percent Auto 21.2 % (20-40); Mean Corpuscular HGB Conc 32.6 g/dl (31.0-35.0); Mean Corpuscular Hemoglobin 28.8 pg (27.0-33.0); Mean Corpuscular Volume 88.1 fL (80.0-98.0); Mean Platelet Volume 12.5 fL (9.4-12.3); Monocytes Absolute Auto 0.9 X10*3/uL (0.1-1.2); Monocytes Percent Auto 9.8 % (2-11); Neutrophils Absolute Auto 6.4 x10*3/uL (2.0-8.3); Neutrophils Percent Auto 66.9 % (45-73); Platelet Count 246 X10*3/uL (160-400); White Blood Count 9.6 X10*3/uL (4.8-10.8)
[2023-12-25 13:42] LABS: IDNOW Serial# 58CA691E; Strep A Nucleic Acid Negative (Negative)
[2023-12-25 14:08] LABS: Alanine Aminotransferase 8 U/L (0-31); Alkaline Phosphatase 62 U/L (39-117); Anion Gap 11 (12-20); Aspartate Amino Transferase 14 U/L (5-31); Bilirubin Total 0.4 mg/dL (0.0-1.0); Blood Urea Nitrogen 6 mg/dL (9-16); Calcium 9.2 mg/dL (8.4-10.2); Carbon Dioxide 25 mmol/L (22-29); Chloride 106 mmol/L (96-108); Creatinine Clr Calc Pharmacy 101.4; Estimated Glomerular Filt Rate > 60; Glucose Random 78 mg/dL (60-115); HCG Quantitative < 2 mIU/mL; Magnesium 2.1 mg/dL (1.6-2.6); Potassium 3.6 mmol/L (3.3-5.1); Sodium 138 mmol/L (135-145); Total Protein 7.9 g/dL (6.5-8.0)
[2023-12-25 14:54] LABS: Influenza A PCR NEGATIVE (Negative); Influenza B PCR NEGATIVE (Negative); Resp Syncy Virus RNA Qual PCR NEGATIVE (Negative); SARS COV2 PCR INHOUSE NEGATIVE (Negative)
--- OUTSIDE RECORDS SUMMARY | 2023-12-25 16:23 | XMS_ITS | Continuity of Care Document ---
Author Organization [facility] Prieto rajiv Address [address] [place] [address] [address] [place] [address]- Care Team Providers Care Transformation Architect Name Role Phone Kendal William Primary Care Physician [phone] [facility] [id number] Date(s): 02/20/22 - 02/27/22 [facility] [address] [place] [address]- Attending Physician: Shamir PICKARD, Keo Rubin Allergies, Adverse Reactions, Alerts Substance Reaction Severity Status Seafood Active Medications Albuterol PRN, 0 Refills, Maintenance, 06/25/11 8:17:07 EST Start Date: 06/25/11 Status: Ordered CeleBREX 50 mg oral capsule 1 capsule = 50 mg, By Mouth, 2 times a day, 0 Refills, Maintenance, 03/08/21 9:53:00 EST, Partial fill upon patient request if the prescription is for a schedule II opioid drug. Start Date: 03/08/21 Status: Ordered dicyclomine 10 mg oral capsule 1 capsule = 10 mg, By Mouth, 4 times a day, 0 Refills, Maintenance, 09/23/19 14:08:00 EDT, Capsule Start Date: 09/23/19 Status: Ordered ibuprofen 800 mg oral tablet 800 mg, 1, tablet, By Mouth, 3 times a day, Motrin, Refills 0, Maintenance, 12/23/17 10:23:15 EDT Start Date: 12/23/17 Status: Ordered Multivitamin Daily, 0 Refills, Maintenance, 03/08/21 9:53:00 EST, Partial fill upon patient request if the prescription is for a schedule II opioid drug. Start Date: 03/08/21 Status: Ordered Omeprazole = 20 mg, By Mouth, Daily, 0 Refills, Maintenance, 10/27/18 9:55:50 EDT Start Date: 10/27/18 Status: Ordered Vitamin A 0 Refills, Maintenance, 03/08/21 9:54:00 EST, Partial fill upon patient request if the prescriptionis for a schedule II opioid drug. Start Date: 03/08/21 Status: Ordered Vitamin D3 1000 intl units oral capsule 1 capsule = 25 mcg, By Mouth, Daily, 0 Refills, Maintenance, 03/08/21 9:54:00 EST, Partial fill upon patient request if the prescription is for a schedule II opioid drug. Start Date: 03/08/21 Status: Ordered Problem List Condition Confirmation Course Effective Dates Status H ealth Status Informant Breast pain, chronic Confirmed Active Chronic diarrhea since cholecytectomy for first 2 meals of day, has had incontince of stool Confirmed Active Passage of loose stools Confirmed Active PCOS (polycystic ovarian syndrome) Confirmed Active Stool incontinence Confirmed Active Vital Signs Most recent to oldest [Reference Range]: 1 Height 167.64 cm (02/20/22 1:42 PM) Weight 73.2 kg (02/20/22 1:42 PM) Pulse Rate [55-90 bpm] 100 bpm *H* (02/20/22 1:42 PM) Body Mass Index [18.5-24.99 kg/m2] 26.05 kg/m2 *H* (02/20/22 1:42 PM) Blood Pressure [90-138/55-84 mm Hg] 119/ 73mm Hg (02/20/22 1:42 PM) Respiratory Rate [16-30 br/min] 18 br/mi n (02/20/22 1:42 PM) Temperature [96.8-100.4 DegF] 97.3 DegF (02/20/22 1:42 PM) Blood pressure sites Arm, right (02/20/22 1:42 PM) Temperature Route Temporal (02/20/22 1:42 PM) Weight Obtained Via Standing scale (02/20/22 1:42 PM) Social History Social History Type Response Smoking Status Never smoker; Tobacc o user in household: No entered on: 03/28/15 Sex Patient Care team information Care Team Personnel Name: Vania Mendes RN Position: KADIE HAWKINS RN Member Role: Primary Care Nurse Name: Kendal William Position: [facility] Outreach Member Role: PCP Address: Address: [address] [place] [address]- Care Team Related Persons Name: NEELA SANCHES Address: [address] [address]
--- OUTSIDE RECORDS SUMMARY | 2023-12-25 16:23 | XMS_ITS | Continuity of Care Document ---
Author Organization [facility] Prieto rajiv Address [address] [place] [address] [address] [place] [address]- Care Team Providers Care Embalmer Apprentice Name Role Phone Oma Lucas NP Primary Care Physician Encounter [facility] Date(s): 06/09/22 - 06/16/22 [facility] [address] [place] [address] Drive [address] [place], [place] [address] Attending Physician: Not on Staff, Attending MD Allergies, Adverse Reactions, Alerts Substance Reaction [...] recent to oldest [Reference Range]: 1 Height 164.4 cm (06/09/22 8:50 AM) Weight 72.27 kg (06/09/22 8:50 AM) Body Mass Index [18.5-24.99 kg/m2] 26.74 kg/m2 *H* (06/09/22 8:50 AM) Weight Obtained Via Standing scale (06/09/22 8:50 AM) Social History Social History Type Response Smoking Status Never smoker; Tobacc o user in household: No entered on: 03/28/15 Sex Patient Care team information Care Team Personnel Name: Vania Mendes RN Position: Elyssa HAWKINS RN Member Role: Primary Care Nurse Name: Oma Lucas NP Position: Reference Physician Member Role: PCP Address: Address: [address] [place] [address]- Care Team Related Persons Name: NEELA SANCHES Address: home [address] [address]
--- OUTSIDE RECORDS SUMMARY | 2023-12-25 16:23 | XMS_ITS | Continuity of Care Document ---
Author Organization [facility] Prieto rajiv Address [address] [place] [address] [address] [place] [address]- Care Team Providers Care Mail Examiner Name Role Phone Oma Lucas NP Primary Care Physician Encounter [facility] Date(s): 05/27/22 - 06/26/22 [facility] [address] [place], [place] [address] Allergies, Adverse Reactions, Alerts Substance Reaction Severity [...] syndrome) Confirmed Active Stool incontinence Confirmed Active Social History Social History Type Response Smoking Status Never smoker; Tobacc o user in household: No entered on: 03/28/15 Sex Patient Care team information Care Team Personnel Name: Vania Mendes RN Position: KADIE HAWKINS RN Member Role: Primary Care Nurse Name: Oma Lucas NP Position: Reference Physician Member Role: PCP Address: Address: [address] [place] [address]- Care Team Related Persons Name: NEELA SANCHES Address: [address] [address]
--- OUTSIDE RECORDS SUMMARY | 2023-12-25 16:23 | XMS_ITS | Continuity of Care Document ---
Author Organization [facility] Address [address] [place] [address], [address] [place] [address]- Care Team Providers Care Tag Maker Name Role Phone Lance HALE, Oma Primary Care Physician [id number] Date[facility] - 09[facility]12/[facility] [address] [facility], [address]th [place] [address]- Attending Physician: Zara Rubin MD Admitting Physician: Zara Rubin MD Referring Physician: Zara Rubin MD Allergies, Adverse Reactions, Alerts Substance Reaction [...] Reference Physician Member Role: PCP Address: Address: [address] [place] [address]- Care Team Related Persons Name: NEELA SANCHES Address: [address] [address]
--- OUTSIDE RECORDS SUMMARY | 2023-12-25 16:23 | XMS_ITS | Continuity of Care Document ---
Author Organization [facility] Vicenta nXiaohongshus [employer] Address [address] [place] [address], 4t [place] [address]- Care Team Providers Care Signal Tower Director Name Role Phone Lance HALE, Oma Primary Care Physician [id number] Date(s): 05/15/22 - 07/10/22 [facility]ha[facility] [address] [facility], 4th [place] [address]- Attending Physician: Zara Rubin MD Admitting Physician: [...] Reference Physician Member Role: PCP Address: Address: [address] [place] [address]- Care Team Related Persons Name: NEELA SANCHES Address: [address] [address]
--- OUTSIDE RECORDS SUMMARY | 2023-12-25 16:23 | XMS_ITS | Continuity of Care Document ---
Author Organization [facility] Vicenta nZoweeTVs [facility] Address [address] [place] [address], 4t [place] [address]- Care Team Providers Care Research Rn Spec Name Role Phone Lance HALE, Oma Primary Care Physician [place] [facility] [place]): [place]22 - 10/23/22 [facility] Harish RadhaZowee[employer] [address] [place] [address], 4th [address] [place], [place] [address] Attending Physician: Sonido Russell Admitting Physician: [...] Reference Physician Member Role: PCP Address: Address: [address] [place] [address]- Care Team Related Persons Name: NEELA SANCHES Address: [address] [address]
--- OUTSIDE RECORDS SUMMARY | 2023-12-25 16:23 | XMS_ITS | Continuity of Care Document ---
Author Organization [facility] [place] nmAPPns [employer] Address [address] [place] [address], 4t [place] [address]- Care Team Providers Care Reinforcing Rod Layer Name Role Phone Lance HALE, Oma Primary Care Physician [phone] [id number] Date(s): 05/15/22 - 08/03/22 [facility] [employer] RadhamAPPns [facility] [address] [facility], 4th [place] [address]- Attending Physician: Zara Rubin MD Referring Physician: Oma Lucas NP Allergies, Adverse Reactions, Alerts Substance Reaction Severity [...] Reference Physician Member Role: PCP Address: Address: [address] [place] [address]- Care Team Related Persons Name: AYAH SANCHESStephenie Address: [address] [address]
--- OUTSIDE RECORDS SUMMARY | 2023-12-25 16:23 | XMS_ITS | Continuity of Care Document ---
Author Organization [facility] Prieto rajiv Address [address] [place] [address] [address] [place] [address]- Care Team Providers Care Swiss Type Screw Machine Operator Name Role Phone Oma Lucas NP Primary Care Physician Encounter [facility] Date(s): 05/15/22 - 06/14/22 [facility] [address] [place], [place] [address] Allergies, Adverse Reactions, Alerts Substance Reaction Severity [...] Reference Physician Member Role: PCP Address: Address: [address] [place] [address]- Care Team Related Persons Name: NEELA SANCHES Address: [address] [address]
--- OUTSIDE RECORDS SUMMARY | 2023-12-25 16:23 | XMS_ITS | Continuity of Care Document ---
Author Organization [facility] [employer] nRenal Solutionss [facility] Address [address] [place] [address], 4t [place] [address]- Care Team Providers Care Advertising Project Manager Name Role Phone Lance HALE, Oma Primary Care Physician [phone] [id number] Date(s): 07/04/22 - 08/03/22 [facility] RadhaRen[employer] Solutionss [facility] [address] [place] [address], 4th [place], [place] [address] Attending Physician: Sonido Russell Admitting Physician: Sonido [...] Reference Physician Member Role: PCP Address: Address: [address] [place] [address]- Care Team Related Persons Name: NEELA SANCHES Address: [address] [address]
--- OUTSIDE RECORDS SUMMARY | 2023-12-25 16:24 | XMS_ITS | Continuity of Care Document ---
Author Organization [facility] Prieto rajiv Address [address] [place] [address] [address] [place] [address]- Care Team Providers Care Manager Process Excellence Name Role Phone Oma Lucas NP Primary Care Physician Encounter [facility] [place] Date(s): 06/20/22 - 07/20/22 [facility] [address] [place], [place] [address] Attending Physician: Sonido Russell Admitting Physician: Sonido [...] Physician Member Role: PCP Address: Address: [address] [place] [address]- Care Team Related Persons Name: NEELA SANCHES Address: [address] [address]
--- OUTSIDE RECORDS SUMMARY | 2023-12-25 16:24 | XMS_ITS | Continuity of Care Document ---
Author Organization [facility] [employer] Vicenta nLanguage [email or web address] Address [address] [place] [address], 4t [place] [address]- Care Team Providers Care Vamp Wetter Name Role Phone Lance HALE, Oma Primary Care Physician [id number] Date(s): 07/07/22 - 09/14/22 [facility] Preo [employer] [facility] [address] [facility], 4th [place] [address]- Attending Physician: Zara Rubin MD Admitting Physician: Zara Rubin MD Referring Physician: Oma [...] Reference Physician Member Role: PCP Address: Address: [address] [place] [address]- Care Team Related Persons Name: NEELA SANCHES Address: [address] [address]
--- OUTSIDE RECORDS SUMMARY | 2023-12-25 16:24 | XMS_ITS | Continuity of Care Document ---
Author Organization [facility] Address [address] [place] [address]- Care Team Providers Care Pipe Inspector Name Role Phone Kendal William Primary Care Physician [phone] Encounter [facility] Date(s): 05/12/22 - 05/12/[address] [address]- Discharge Disposition: A-D/C Home Attending Physician: Valeriano Balbuena MD Admitting Physician: Valeriano Balbuena MD Referring Physician: Valeriano Balbuena MD Allergies, Adverse Reactions, Alerts Substance Reaction Severity Status Seafood Active Medications acetaminophen 325 mg oral tablet 650 mg, 2, tablet, By Mouth, Every 6 hours, PRN, for 10 days, # 50 tablet, Refills 1, Tot. Refills 1, Acute 06/01/22 7:45:00 EST, as needed for pain, 05/12/22 7:45:00 EST, Route to Pharmacy Electronically, [facility][id number], Partial fill upo... Start Date: 05/12/22 Stop Date: 06/01/22 Status: Ordered Albuterol PRN, 0 Refills, Maintenance, 06/25/11 8:17:07 [...] Capsule Start Date: 09/23/19 Status: Ordered ibuprofen 200 mg oral tablet 400 mg, 2, tablet, By Mouth, Every 6 hours, PRN, for 10 days, # 100 tablet, Refills 1, Tot. Refills1, Acute 06/01/22 7:45:00 EST, for pain, 05/12/22 7:45:00 EST, Route to Pharmacy Electronically, [facility] #[id number], Partial fill upon patient... Start Date: 05/12/22 Stop Date: 06/01/22 Status: Ordered ibuprofen 800 mg oral tablet [...] 9:55:50 EDT Start Date: 10/27/18 Status: Ordered oxyCODONE 5 mg oral tablet 5 mg, 1, tablet, By Mouth, Every 6 hours, PRN, for 3 days, # 12 tablet, Refills 0, Tot. Refills 0, Acute 05/15/22 7:45:00 EST, for pain, 05/12/22 7:45:00 EST, Route to Pharmacy Electronically, [facility] #[id number], Partial fill upon patient req... Start Date: 05/12/22 Stop Date: 05/15/22 Status: Ordered Vitamin A 0 Refills, Maintenance, [...] Most recent to oldest [Reference Range]: 1 2 3 Height 167 cm (05/12/22 6:52 AM) Oxygen Saturation [94-100 %] 97 % (05/12/22 1:30 PM) 97 % (05/12/22 1:15 PM) 100 % (05/12/22 1:00 PM) Pulse Rate [55-90 bpm] 76 bpm (05/12/22 6:52 AM) Blood Pressure [90-138/55-84 mm Hg] 103/66mm Hg (05/12/22 1:30 PM) 99/62mm Hg (05/12/22 1:15 PM) 96/59mm Hg (05/12/22 1:00 PM) Respiratory Rate [16-30 br/min] 20 br/min (05/12/22 1:30 PM) 25 br/min (05/12/22 1:15 PM) 19 br/min (05/12/22 1:00 PM) Temperature [96.8-100.4 DegF] 97.4 DegF (05/12/22 1:00 PM) 97.6 DegF (05/12/22 12:10 PM) 98.3 DegF (05/12/22 6:52 AM) Liters per Minute 6 L/min (05/12/22 1:00 PM) 6 L/min (05/12/22 12:45 PM) 6 L/min (05/12/22 12:30 PM) Mode of Delivery (Oxygen) Room air (05/12/22 1:55 PM) Room air (05/12/22 1:30 PM) Room air (05/12/22 1:15 PM) Blood pressure sites Arm, right (05/12/22 12:20 PM) Arm, right (05/12/22 12:15 PM) Arm, right (05/12/22 12:10 PM) Temperature Route Temporal (05/12/22 1:00 PM) Temporal (05/12/22 12:10 PM) Temporal (05/12/22 6:52 AM) Dry Weight 72.5 kg (05/12/22 6:52 AM) Dry Weight Obtained Via Standing scale (05/12/22 6:52 AM) Social History Social History Type Response Smoking Status Never smoker; Tobacc o user in household: No entered on: 03/28/15 Sex Patient Care team information Care Team Personnel Name: Vania Mendes RN Position: [facility] SN RN Member Role: Primary Care Nurse Name: Kendal William Position: [facility] Outreach Member Role: PCP Address: Address: [address] [place] [address]- Care Team Related Persons Name: NEELA SANCHES Address: [place] [address]
--- OUTSIDE RECORDS SUMMARY | 2023-12-25 16:24 | XMS_ITS | Continuity of Care Document ---
Author Organization [facility] Vicenta nLookerys [employer] [facility] Address [address] [place] [address], 4t [place] [address]- Care Team Providers Care Monorail Charger Operator Name Role Phone Lance HALE, Oma Primary Care Physician Encounter [facility] NBR [id number] Date(s): 08/13/22 - 10/23/22 [facility] [employer] [facility] [address] [facility], 4th [place] [address]- Attending Physician: Zara Rubin MD Admitting Physician: [...] Reference Physician Member Role: PCP Address: Address: [address] [place] [address]- Care Team Related Persons Name: NEELA SANCHES Address: [address] [address]
--- OUTSIDE RECORDS SUMMARY | 2023-12-25 16:24 | XMS_ITS | Continuity of Care Document ---
Author Organization [facility] Prieto rajiv Address [address] [place] [address] [address] [place] [address]- Care Team Providers Care Mold Cleaner Name Role Phone Oma Lucas NP Primary Care Physician [phone] [place] [facility] [place] 03/29/22 - 07/20/22 [facility] [address] [place], [place] [address] Attending Physician: Valeriano Balbuena MD Allergies, Adverse Reactions, [...] Reference Physician Member Role: PCP Address: Address: [address] [place] [address]- Care Team Related Persons Name: SANCHESSHERLYNKEHINDEStephenie Address: [address] [address]
--- OUTSIDE RECORDS SUMMARY | 2023-12-25 16:24 | XMS_ITS | Continuity of Care Document ---
Author Organization [facility] Prieto rajiv Address [address] [place] [address] [address] [place] [address]- Care Team Providers Care Gas Inspector Name Role Phone Lance HALE, Oma Primary Care Physician [phone] Encounter [facility] Date(s): 05/19/22 - 05/26/22 [facility] [address] [place], [place] [address] Attending Physician: Valeriano Balbuena MD Allergies, Adverse Reactions, Alerts Substance Reaction Severity Status Seafood Active Medications acetaminophen 325 mg oral tablet 650 mg, 2, tablet, By Mouth, Every 6 hours, PRN, for 10 days, # 50 tablet, Refills 1, Tot. Refills 1, Acute 06/01/22 7:45:00 EST, as needed for pain, 05/12/22 7:45:00 EST, Route to Pharmacy Electronically, [facility] #[id number], Partial fill upo... Start Date: 05/12/22 Stop [...] 05/12/22 7:45:00 EST, Route to Pharmacy Electronically, [facility] #[id number], Partial fill upon patient... Start Date: 05/12/22 [...] oldest [Reference Range]: 1 Height 164.4 cm (05/19/22 2:00 PM) Pulse Rate [55-90 bpm] 79 bpm (05/19/22 2:00 PM) Blood Pressure [90-138/55-84 mm Hg] 119/ 73mm Hg (05/19/22 2:00 PM) Temperature [96.8-100.4 DegF] 97.8 DegF (05/19/22 2:00 PM) Blood pressure sites Arm, right (05/19/22 2:00 PM) Temperature Route Temporal (05/19/22 2:00 PM) Social History Social History Type Response Smoking Status Never smoker; Tobacc o user in household: No entered on: 03/28/15 Sex Patient Care team information Care Team Personnel Name: Vania Mendes RN Position: [facility] RN Member Role: Primary Care Nurse Name: Oma Lucas NP Position: Reference Physician Member Role: PCP Address: Address: [address] [place] [address]- Care Team Related Persons Name: NEELA SANCHES Address: [address] [address]
--- OUTSIDE RECORDS SUMMARY | 2023-12-25 16:24 | XMS_ITS | Continuity of Care Document ---
Author Organization [facility] Prieto rajiv Address [address] [place] [address] [address] [place] [address]- Care Team Providers Care Supervisor Train Operations Name Role Phone Kendal William Primary Care Physician [place] [facility] [facility] [place] [id number] Date(s): 05/02/22 - 05/09/22 [facility] [address] [place] [address]- Attending Physician: Valeriano Balbuena MD Allergies, Adverse [...] oldest [Reference Range]: 1 Height 167.64 cm (05/02/22 1:55 PM) Weight 72 kg (05/02/22 1:55 PM) Body Mass Index [18.5-24.99 kg/m2] 25.62 kg/m2 *H* (05/02/22 1:55 PM) Dry Weight 72 kg (05/02/22 1:55 PM) Social History Social History Type Response Smoking Status Never smoker; Tobacc o user in household: No entered on: 03/28/15 Sex Patient Care team information Care Team Personnel Name: Vania Mendes RN Position: [facility] RN Member Role: Primary Care Nurse Name: Kendal William Position: [facility] Outreach Member Role: PCP Address: Address: [address] [place] [address]- Care Team Related Persons Name: AYAH SANCHESStephenie Address: [address] [address]
[2023-12-25 17:29] VITALS: BP 112/83; PULSE 100; RESP 20; TEMP 36.6; O2SAT 99
[2023-12-25] MEDS: 0.9 % Sodium Chloride 1,000 ML 999 ML IV (18:05)
[2023-12-25 18:41] LABS: Appearance Urine Cloudy; Color Urine Yellow; Glucose Urine UA Negative (Negative); Leukocyte Esterase Urine Moderate (2+) (Negative); Nitrite Urine Negative (Negative); PH 5.5 (5.0-9.0); Specific Gravity - Urine 1.025 (1.005-1.025); UMIC TRIGGER UACC YES; Urine Blood Moderate (2+) (Negative); Urine Ketones Trace mg/dL (Negative); Urine Protein Trace mg/dL (Neg-Trace)
[2023-12-25 19:35] LABS: Bacteria Urine 3+ (None Seen); Hyaline Casts Urine 0-2 /LPF (0-2); UACC Culture Trigger YES
[2023-12-25 20:31] VITALS: BP 112/83; PULSE 100; RESP 20; TEMP 36.6; O2SAT 99
== END 2023-12-25 20:32 | disposition home or self-care (01) ==
PROVIDERS: Physician Assistant Medical; Emergency Provider Internal Medicine; PCP Nurse Practitioner Family
DX: K52.9 Noninfective gastroenteritis and colitis, unspecified (principal); N39.0 Urinary tract infection, site not specified; R11.2 Nausea with vomiting, unspecified; Z03.818 Encounter for observation for suspected exposure to other biological agents ruled out; J45.909 Unspecified asthma, uncomplicated
CPT/HCPCS: 0241U; 74176; 80053; 81001; 83735; 84702; 85025; 87086; 87651; 96360; 96361; 99283; 99284

== ENCOUNTER 2024-02-10 12:34 | Outpatient (AMB) | payer MEDICAID, SELFPAY ==
--- NOTE | 2024-02-10 12:03 | MHC.OFFVISWM ---
VS Expanded 02/10/24 12:10 Height 5 ft 6 in Weight 163 lb BMI 26.3 Intake Visit Reasons: TELEPHONE PO LIVANNI 08/21/22 Wafer Abrading Machine Tender Required: Yes Wafer Abrading Machine Tender Name: Alexandra [id number] Information Interpreted: clinical only Allergies Seafood Allergy (Severe, Uncoded 12/25/23 12:49) HIVES/SWELLING Medication List - Last Reconciled 02/10/24 by NITO Pink acetaminophen 500 mg PO QID PRN cefuroxime axetil 250 mg PO Q12H fluticasone propionate 110 mcg/actuation (Flovent HFA) 2 puffs inhalation BID PRN magnesium citrate 300 mL PO DAILY nitrofurantoin monohyd/m-cryst 100 mg 100 mg PO BID 7 days ondansetron 4 mg PO Q8H PRN ondansetron 4 mg PO DAILY PRN 5 days polyethylene glycol 3350 (Miralax) 17 grams PO DAILY PRN HPI Comments Details: This?is a?38?yo female who is s/p LSG 07/18/2020. Presents for 3.5 year post op visit. Weight at last visit on 09/19/2022 was 149.2 pounds with a BMI of 24.4, weight today is 163 pounds, representing a 13.8 pound weight gain with a BMI today of 26.8.? Pt had some abdominal pain recently and was told to follow up with us. Pain is in lower abdomen, was told by ER that she had a large stool burden. Pt reports pain has improved since ER visit. Occasional nausea, no vomiting, depending on what she eats. Present meal plan includes: was drinking sodas has cut out rice, pasta, breads not taking any protein shakes but thinks she is getting enough protein via food taking MVI Exercise routine includes: not every day, maybe 1x a week- I don't have time because of work [facility] Medical History Kidney stone Arthritis BMI 26.0-26.9,adult Overweight (BMI 25.0-29.9) BMI 25.0-25.9,adult BMI 33.0-33.9,adult Prediabetes MARYANA on CPAP Adjustment disorder, unspecified BMI 34.0-34.9,adult BMI 35.0-35.9,adult Vitamin B1 deficiency Vitamin A deficiency Vitamin D deficiency Morbid (severe) obesity due to excess calories BMI 40.0-44.9, adult BMI 39.0-39.9,adult Shortness of breath Preoperative examination Gastritis Sleep apnea Asthma Migraine Surgical History S/P panniculectomy Hx of breast reduction, elective History of repair of hiatal hernia S/P laparoscopic sleeve gastrectomy Normal endoscopy Hx of colonoscopy Hx laparoscopic cholecystectomy History of bilateral tubal ligation H/O left knee surgery Family History Father Hypertension Heart problem Vertigo Mother Dementia Alzheimer disease Pneumathemia Sister Depressed Hypertension Anxiety History of gastric surgery Sister Diabetes mellitus Hypertension Depressed Anxiety Brother No problems noted. Brother No problems noted. 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 Do you presently have visiting nurse or other home services: No Alcohol intake: never Patient Tobacco Use Status: Never used Tobacco service: No Current occupational status: unemployed Female Reproductive History Menstrual Age of Menarche: 11 Telehealth Telehealth Telehealth Platform: Telephone Location of provider rendering services: other Location of patient: address on file Patient Identification confirmed using: Name, : Yes Telehealth method: voice only Patient verbally consented to treatment: Yes Patient verbally consented to billing insurance company: Yes Patient informed of any privacy concerns related to visit: Yes Minutes spent on Phone/Video with Pt.: 16 Assessment & Plan Assessment & Plan (1) S/P laparoscopic sleeve gastrectomy: Code(s): Z98.84 - Bariatric surgery status Category: Surgical (2) S/P panniculectomy: Code(s): Z98.890 - Other specified postprocedural states Category: Surgical (3) Overweight (BMI 25.0-29.9): Code(s): E66.3 - Overweight Category: Medical Plan Goal 65-70g protein/day. Eliminate sodas, increase exercise to allow for weight loss. No surgical complications. Pt recently had bloodwork done in ER, will order vitamin levels. RTC 1 year. I spent a total of 30 minutes reviewing/updating records, examining the patient and counseling the patient on weight management as detailed above. Orders: Orders Zinc Today Z98.84 - Bariatric surgery status Vitamin D 25-OH Total Today Z98.84 - Bariatric surgery status Vitamin A Today Z98.84 - Bariatric surgery status Vitamin B1 Today Z98.84 - Bariatric surgery status Vitamin B12 and Folate Today Z98.84 - Bariatric surgery status
[2024-02-10 12:10] VITALS: BMI 26.3
--- OUTSIDE RECORDS SUMMARY | 2024-02-10 12:35 | XMS_ITS | Continuity of Care Document ---
Author Organization [facility]ish Vicenta [employer] Address [address] [place] [address], 4t [place] [address]- Care Team Providers Care Yard Demurrage Clerk Name Role Phone Lance HALE, Oma Primary Care Physician [id number] Date(s): 08/13/22 - 10/09/22 [facility] [employer]ha[employer] [facility] [address] [facility], 4th [place] [address]- Attending Physician: Zara Rubin MD Admitting Physician: [...] Reference Physician Member Role: PCP Address: Address: [address] [place] [address]- Care Team Related Persons Name: NEELA SANCHES Address: [address] [address]
== END 2024-02-10 12:35 | disposition home or self-care (01) ==
LOC: HO.HBS 12:34
PROVIDERS: PCP Nurse Practitioner Family; Visit Provider Physician Assistant Surgical
DX: E66.3 Overweight (principal); Z68.26 Body mass index [BMI] 26.0-26.9, adult; Z90.3 Acquired absence of stomach [part of]; Z98.84 Bariatric surgery status
CPT/HCPCS: 99214

== ENCOUNTER → 2024-02-10 12:34 | Outpatient (BNVA) | payer MEDICAID, SELFPAY | PROVIDERS: PCP Nurse Practitioner Family; Visit Provider Physician Assistant Surgical | DX: E66.3 Overweight (principal); Z98.84 Bariatric surgery status; Z68.26 Body mass index [BMI] 26.0-26.9, adult | CPT/HCPCS: 99212 ==

== ENCOUNTER 2024-10-22 06:40 | Emergency (ER) | payer OTHER, MEDICAID, SELFPAY ==
--- NOTE | ~2024-10-22 | CT_ITS ---
CLINICAL HISTORY: s p syncope and fall CT cervical spine without contrast Comparison: None provided Findings: Vertebral alignment is within normal limits. No significant degenerative change. No acute fractures or dislocations. No acute findings on limited view of the intracranial contents. Soft tissues of the neck are normal. No consolidation or effusion at the lung apices. IMPRESSION: No acute findings. This document has been electronically signed by: González Spencer MD on 10/22/2024 08:52:32
--- NOTE | ~2024-10-22 | CT_ITS ---
CLINICAL HISTORY: s p syncope CT head without contrast Comparison: None provided Findings: No intra-axial mass, midline shift, hydrocephalus, or acute hemorrhage. No significant atrophy-like change or white matter disease. There is no sinus or mastoid fluid. The orbits are within normal limits. There is no acute fracture. IMPRESSION: 1. No acute intracranial findings. This document has been electronically signed by: González Spencer MD on 10/22/2024 08:55:51
--- NOTE | ~2024-10-22 | XR_ITS ---
CLINICAL HISTORY: s p fall 2 view right femur Comparison: None provided Findings: No fractures or dislocations. No knee effusion. No significant arthritic change. No radiopaque foreign body. IMPRESSION: 1. Normal right femur This document has been electronically signed by: González Spencer MD on 10/22/2024 08:15:12
--- NOTE | ~2024-10-22 | XR_ITS ---
CLINICAL HISTORY: s p fall and injury right hip 3 view, pelvis and right hip Comparison: None provided Findings: The bones are intact. No significant arthritic change. The soft tissues are unremarkable. IMPRESSION: No acute findings. This document has been electronically signed by: González Spencer MD on 10/22/2024 08:15:38
[2024-10-22 06:42] VITALS: BP 121/82; PULSE 88; RESP 17; TEMP 36.1; O2SAT 99; BMI 28.1
--- NOTE | 2024-10-22 07:25 | ECG_ITS ---
Test Reason : S/P SYNCOPE Blood Pressure : */* mmHG Vent. Rate : 65 BPM Atrial Rate : 65 BPM P-R Int : 160 ms QRS Dur : 76 ms QT Int : 398 ms P-R-T Axes : 52 11 3 degrees QTcB Int : 413 ms Normal sinus rhythm Cannot rule out Anterior infarct , age undetermined Abnormal ECG When compared with ECG of 17-Jul-2020 11:51, Nonspecific T wave abnormality now evident in Anterior leads Referred By: Prasanna Henriquez Electronically Signed By: MEÑO ADAMS MD
--- NOTE | 2024-10-22 07:25 | ED.FALL ---
HPI - Fall General Chief Complaint: Fall Stated Complaint: l side inj at work Time Seen by Provider: 10/22/24 07:16 Source: patient Mode of arrival: ambulatory Limitations: no limitations History of Present Illness ED Provider: DR. 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 Patient otherwise declined any CP or SOB. Patient is complaining of neck pain, right hip pain, right femoral pain. Related Data Home Medications ?Medication ?Instructions ?Recorded ?Confirmed fluticasone propionate 110 2 puff inhalation BID PRN Wheezing 08/15/22 02/10/24 mcg/actuation HFA aerosol inhaler (Flovent HFA) Previous Rx's ?Medication ?Instructions ?Recorded acetaminophen 500 mg tablet 500 mg PO QID PRN fever or pain 02/04/22 #20 tabs cefuroxime axetil 250 mg tablet 250 mg PO Q12H #10 tabs 07/09/23 magnesium citrate 300 ml PO DAILY #296 mL 07/09/23 ondansetron 4 mg disintegrating 4 mg PO Q8H PRN nausea and 07/09/23 tablet vomiting #20 tabs polyethylene glycol 3350 17 17 g PO DAILY PRN constipation 07/09/23 gram/dose oral powder (Miralax) #238 grams nitrofurantoin 100 mg PO BID 7 days #14 caps 12/25/23 monohydrate/macrocrystals 100 mg capsule ondansetron 4 mg disintegrating 4 mg PO DAILY PRN nausea and 12/25/23 tablet vomiting 5 days #10 tabs nitrofurantoin 100 mg PO BID #14 caps 10/22/24 monohydrate/macrocrystals 100 mg capsule (Macrobid) oxycodone 5 mg tablet 5 mg PO Q8H PRN pain #7 tabs 10/22/24 Allergies Allergy/AdvReac Type Severity Reaction Status Date / Time Seafood Allergy Severe HIVES/SWELL Uncoded 10/22/24 06:45 ING Review of Systems Review of Systems: All other systems are reviewed and are negative Constitutional: Reports as per HPI and Reports no additional constitutional complaints Eyes: Reports as per HPI and Reports no additional eye complaints Reports system reviewed and no additional complaints, except as documented Cardiovascular: Reports as per HPI and Reports no additional cardiovascular complaints Respiratory: Reports as per HPI and Reports no additional respiratory complaints Gastrointestinal: Reports as per HPI and Reports no additional gastrointestinal complaints Genitourinary: Reports no additional female genitourinary complaints Musculoskeletal: Reports no additional musculoskeletal complaints Skin/Breast: Reports system reviewed and no additional complaints, except as docu Psychiatric: Reports no additional psychiatric complaints Endocrine: Reports no additional endocrine complaints Hematologic/Lymphatic: Reports no additional hematologic/lymphatic complaints Allergic/Immunologic: Reports no additional allergic/immunologic complaints Reports system reviewed and no additional complaints, except as documented and Reports Abnormal speech present [facility] Past Medical History Medical History Kidney stone Arthritis BMI 26.0-26.9,adult Overweight (BMI 25.0-29.9) BMI 25.0-25.9,adult BMI 33.0-33.9,adult Prediabetes MARYANA on CPAP Adjustment disorder, unspecified BMI 34.0-34.9,adult BMI 35.0-35.9,adult Vitamin B1 deficiency Vitamin A deficiency Vitamin D deficiency Morbid (severe) obesity due to excess calories BMI 40.0-44.9, adult BMI 39.0-39.9,adult Shortness of breath Preoperative examination Gastritis Sleep apnea Asthma Migraine Surgical History S/P panniculectomy Hx of breast reduction, elective History of repair of hiatal hernia S/P laparoscopic sleeve gastrectomy Normal endoscopy Hx of colonoscopy Hx laparoscopic cholecystectomy History of bilateral tubal ligation H/O left knee surgery Family History Family History Father Hypertension Heart problem Vertigo Mother Dementia Alzheimer disease Pneumathemia Sister Depressed Hypertension Anxiety History of gastric surgery Sister Diabetes mellitus Hypertension Depressed Anxiety Brother No problems noted. Brother No problems noted. Son Asthma Diabetes mellitus Obese abdomen Daughter Asthma Maternal Grandmother Colon cancer Paternal Grandmother Breast cancer Social History Social History Are you a primary manager respiratory care to a significant other at home: Yes Do you presently have visiting nurse or other home services: No Alcohol intake: never Patient Tobacco Use Status: Never used Tobacco Smoked in Last 30 Days: No Use of substances other than those prescribed or required for medical reasons: No Advance Directives: No Advance Directives Information Provided: No Do you have a plan to hurt others: No Plan service: No Current occupational status: unemployed Physical Exam Vital Signs: Vital Signs: Last Vital Signs Temp 98.1 F 10/22/24 08:27 Pulse 66 10/22/24 08:27 Resp 13 10/22/24 08:27 BP 102/64 10/22/24 08:27 Pulse Ox 100 10/22/24 08:27 O2 Del Method Room Air 10/22/24 08:27 BMI result Body Mass Index 28.1 Vital signs have been reviewed and appear to be correct. Blood pressure elevated. Heart rate normal. Respiratory rate normal. Temperature normal. Oxygen saturation normal. Appearance: Alert. Oriented X3. No acute distress. Head: Normal external exam. Normocephalic. Atraumatic. No Gonzales signs noted. No raccoon eyes noted Eyes: PERRLA. EOMI. Conjunctiva and sclera normal. Eyelids normal. ENT: TM's Normal. Pharynx normal. Uvula midline. Moist mucous membranes. No trismus noted. No drooling noted. No muffled voice noted. Neck: Normal inspection. Neck supple. FROM. No adenopathy. Thyroid Normal. No meningeal signs. No neck mass noted. CVS: Normal heart rate and rhythm. Heart sound normal. No murmurs noted. Pulses normal throughout. Respiratory: No respiratory distress. Painless inspiration. Breath sounds normal. No wheezes/rales/rhonchi noted. Chest nontender. No accessory muscle usage noted or decreased air movement noted. Abdomen: Soft and nontender. Bowel sounds normal in all 4 quadrants. No distention noted. No organomegaly noted. No visible injury noted. Back: No CVA tenderness. Full range of motion noted. Skin: Skin warm and dry. Normal skin color. Normal skin turgor. No rashes/lesions/lacerations noted. Extremities: Right thigh 10 x 15 cm area of ecchymosis to the lateral aspect of the thigh. Right hip pain with full range of motion. neurovascular exam is intact to the right extremity. Neuro: Oriented X 3. Cranial nerve exam: II-XII are grossly intact No motor deficit. No sensory deficit. Reflexes normal. Course Reevaluation(s) Reevaluation #1: s/p fall, syncopal episode? 4 days ago likely after heat exhaustion, left lower extremity contusion. Normal neuro exam, GCS of 15, head /cervical spine CT unremarkable. Patient is complaining of dysuria and frequency urination will start on Macrobid and patient was encouraged to drink plenty of fluids. Time: 09:55 Medical Decision Making Differential Diagnosis Differential Diagnoses: The differential diagnosis associated with the presentation includes (Intracranial pathology, cervical spine injury, right hip fracture, right femur fracture, UTI, electrolyte derangement, severe dehydration, orthostatic hypotension.) Admission/Observation Consideration of admission/observation: Escalation of care including admission/observation considered Lab Data MDM Lab Attestation statement: I reviewed the patient's lab results. 10/22/24 08:21 10/22/24 08:21 Labs: Lab Results 10/22/24 10/22/24 Range/Units 08:21 08:30 WBC 5.7 (4.8-10.8) X10*3/uL RBC 4.35 (4.20-5.50) X10*6/uL Hgb 12.4 (12.0-16.0) g/dl Hct 37.8 (37.0-47.0) % MCV 86.9 (80.0-98.0) fL MCH 28.5 (27.0-33.0) pg MCHC 32.8 (31.0-35.0) g/dl RDW 12.2 (11.0-16.0) % Plt Count 254 (160-400) X10*3/uL MPV 11.8 (9.4-12.3) fL Immature Gran % (Auto) 0.4 (0.0-0.4) % Neut % (Auto) 55.6 (45-73) % Lymph % (Auto) 32.9 (20-40) % Dawson % (Auto) 8.9 (2-11) % Eos % (Auto) 1.8 (0-4) % Baso % (Auto) 0.4 (0-2) % Lymph # (Auto) 1.9 (1.2-4.9) X10*3/uL Dawson # (Auto) 0.5 (0.1-1.2) X10*3/uL Eos # (Auto) 0.1 (0.0-0.4) X10*3/uL Baso # (Auto) 0.0 (0.0-0.2) X10*3/uL Abs Immat Gran (auto) 0.02 (0.00-0.03) X10*3/uL Absolute Neuts (auto) 3.2 (2.0-8.3) x10*3/uL Absolute Nucleated RBC 0.000 (0.0-0.012) X10*3/uL Nucleated RBC % (auto) 0.0 (0.0-0.2) /100WBC Sodium 141 (135-145) mmol/L Potassium 3.9 (3.3-5.1) mmol/L Chloride 110 H (96-108) mmol/L Carbon Dioxide 27 (22-29) mmol/L Anion Gap 8 L (12-20) BUN 10 (9-16) mg/dL Creatinine 0.65 (0.5-1.4) mg/dL Estim Creat Clear Calc 120.7 Estimated GFR > 60 Random Glucose 86 (60-115) mg/dL Calcium 8.5 D (8.4-10.2) mg/dL Total Bilirubin 0.4 (0.0-1.0) mg/dL Direct Bilirubin 0.2 (0.0-0.5) mg/dL AST 18 (5-31) U/L ALT 13 (0-31) U/L Alkaline Phosphatase 55 (39-117) U/L Troponin I High Sens < 2.7 (<3.5-17.0) ng/L Total Protein 7.0 (6.5-8.0) g/dL Albumin 3.8 (3.5-5.0) g/dL Lipase 22 (8-78) U/L Urine Color Yellow Urine Appearance Cloudy Urine pH 6.5 (5.0-9.0) Ur Specific [place] 1.025 (1.005-1.025) Urine Protein Negative (Neg-Trace) mg/dL Urine Glucose (UA) Negative (Negative) mg/dL Urine Ketones Trace (Negative) mg/dL Urine Blood Moderate (2+) H (Negative) Urine Nitrite Negative (Negative) Ur Leukocyte Esterase Small (1+) H (Negative) Urine RBC 0-2 (0-2) /HPF Urine WBC 11-20 H (0-5) /HPF Ur Squamous Epith Cells >20 (0-2) /HPF Urine Bacteria 1+ (None Seen) Hyaline Casts 0-2 (0-2) /LPF Independent Interpretation I performed an independent interpretation of an: Plain X-Ray ( Right hip /Right femur x-ray: No acute fracture.) and CT Scan ( head/cervical spine: No acute pathology.) Radiology Impression Discussion of test interpretation with radiology: I have reviewed the radiologist's reading. Discharge Plan Discharge Clinical Impression: UTI (urinary tract infection), Encounter for assessment of work-related causation of injury, Contusion of right hip, Contusion of right thigh Patient Disposition: Home, Self-Care Instructions: Hip Contusion (ED) Additional Instructions: drink plenty of fluids. Take your medicine for UTI. Prescriptions: New nitrofurantoin monohyd/m-cryst [Macrobid] 100 mg capsule 100 mg PO BID Qty: 14 0RF Rx Instructions: must administer with a meal/food oxycodone 5 mg tablet 5 mg PO Q8H PRN (Reason: pain) Qty: 7 0RF Rx Instructions: Partial Fill upon patient request. No Action acetaminophen 500 mg tablet 500 mg PO QID PRN (Reason: fever or pain) Qty: 20 0RF ondansetron 4 mg tablet,disintegrating 4 mg PO Q8H PRN (Reason: nausea and vomiting) Qty: 20 0RF cefuroxime axetil 250 mg tablet 250 mg PO Q12H Qty: 10 0RF polyethylene glycol 3350 [Miralax] 17 gram/dose powder 17 g PO DAILY PRN (Reason: constipation) Qty: 238 0RF magnesium citrate Solution 300 ml PO DAILY Qty: 296 0RF fluticasone propionate [Flovent HFA] 110 mcg/actuation HFA aerosol inhaler 2 puff inhalation BID PRN (Reason: Wheezing) ondansetron 4 mg tablet,disintegrating 4 mg PO DAILY PRN (Reason: nausea and vomiting) 5 Days Qty: 10 0RF nitrofurantoin monohyd/m-cryst 100 mg capsule 100 mg PO BID 7 Days Qty: 14 0RF Rx Instructions: must administer with a meal/food Referrals: Oma Lucas NP [Primary Care Provider, Internal Medicine] Stand Alone Forms: Work/School Release Print Language: Occitan
[2024-10-22 07:30] VITALS: BP 103/66; PULSE 77
[2024-10-22 07:31] VITALS: BP 112/72; PULSE 80
[2024-10-22 07:32] VITALS: BP 123/81; PULSE 79
[2024-10-22 08:26] LABS: MANUAL DIFF FLAG NO
[2024-10-22 08:27] VITALS: BP 102/64; PULSE 66; RESP 13; TEMP 36.7; O2SAT 100
[2024-10-22 08:29] LABS: Hematocrit 37.8 % (37.0-47.0); Hemoglobin 12.4 g/dl (12.0-16.0); Imm Gran Abs Auto 0.02 X10*3/uL (0.00-0.03); Imm Gran Pct Auto 0.4 % (0.0-0.4); Lymphocytes Absolute Auto 1.9 X10*3/uL (1.2-4.9); Mean Corpuscular HGB Conc 32.8 g/dl (31.0-35.0); Mean Corpuscular Hemoglobin 28.5 pg (27.0-33.0); Mean Corpuscular Volume 86.9 fL (80.0-98.0); NRBC Abs Auto 0.000 X10*3/uL (0.0-0.012); NRBC Pct Auto 0.0 /100WBC (0.0-0.2); Platelet Count 254 X10*3/uL (160-400); Red Blood Count 4.35 X10*6/uL (4.20-5.50); White Blood Count 5.7 X10*3/uL (4.8-10.8)
[2024-10-22 08:37] LABS: Appearance Urine Cloudy; Glucose Urine UA Negative (Negative); PH 6.5 (5.0-9.0); Specific Gravity - Urine 1.025 (1.005-1.025); UMIC TRIGGER UACC YES
[2024-10-22 08:41] LABS: Alanine Aminotransferase 13 U/L (0-31); Albumin Level 3.8 g/dL (3.5-5.0); Alkaline Phosphatase 55 U/L (39-117); Anion Gap 8 (12-20); Aspartate Amino Transferase 18 U/L (5-31); Blood Urea Nitrogen 10 mg/dL (9-16); Calcium 8.5 mg/dL (8.4-10.2); Carbon Dioxide 27 mmol/L (22-29); Chloride 110 mmol/L (96-108); Creatinine Clr Calc Pharmacy 120.7; Estimated Glomerular Filt Rate > 60; Lipase 22 U/L (8-78); Potassium 3.9 mmol/L (3.3-5.1); Sodium 141 mmol/L (135-145); Total Protein 7.0 g/dL (6.5-8.0)
[2024-10-22 08:54] LABS: UACC Culture Trigger YES
[2024-10-22 08:57] LABS: Troponin-I High Sensitivity < 2.7 ng/L (<3.5-17.0)
[2024-10-22] MEDS: oxyCODONE HCl Immed Release 5 MG TABLET PO (10:04)
[2024-10-22 10:18] VITALS: BP 113/77; PULSE 67; RESP 16; TEMP 36.1; O2SAT 100
== END 2024-10-22 10:19 | disposition home or self-care (01) ==
PROVIDERS: Emergency Provider Emergency Medicine; PCP Nurse Practitioner Family
DX: N39.0 Urinary tract infection, site not specified (principal); R55 Syncope and collapse; S70.01XA Contusion of right hip, initial encounter; S70.11XA Contusion of right thigh, initial encounter; M25.551 Pain in right hip; X58.XXXA Exposure to other specified factors, initial encounter; Y93.89 Activity, other specified; Y92.89 Other specified places as the place of occurrence of the external cause; Y99.9 Unspecified external cause status
CPT/HCPCS: 36415; 70450; 72125; 73502; 73552; 80048; 80076; 81001; 83690; 84484; 85025; 87086; 93005; 99284; 99285

== ENCOUNTER → 2024-10-22 07:23 | Outpatient (BNV) | payer OTHER, SELFPAY | PROVIDERS: Emergency Provider Emergency Medicine; PCP Nurse Practitioner Family; Visit Provider Radiology Diagnostic Radiology | DX: R55 Syncope and collapse (principal); M25.551 Pain in right hip; M79.604 Pain in right leg | CPT/HCPCS: 70450; 72125; 73502; 73552 ==

== ENCOUNTER → 2024-10-22 07:25 | Outpatient (BNV) | payer OTHER, SELFPAY | PROVIDERS: Emergency Provider Emergency Medicine; PCP Nurse Practitioner Family; Visit Provider Internal Medicine Cardiovascular Disease | DX: R94.31 Abnormal electrocardiogram [ECG] [EKG] (principal); R55 Syncope and collapse | CPT/HCPCS: 93010 ==

== ENCOUNTER 2024-11-17 09:36 | Outpatient (REF) | payer MEDICAID, SELFPAY ==
--- NOTE | ~2024-11-17 | XR_ITS ---
EXAMINATION: XR KNEE, LEFT CLINICAL INFORMATION: M25.562 - Pain in left knee COMPARISON: February 17, 2022. TECHNIQUE: AP view both knees in standing position. Lateral and sunrise views of the left knee. FINDINGS: Metallic plate placed in the medial aspect of the distal diaphysis and metaphysis and epiphysis of the femur with the periosteal bone reaction in the proximal aspect of the metallic hardware. The screws are anchored without gross loosening. There is a subtle lucency through the distal diaphysis metaphysis junction fracture of the left femur with mild callus formation. There is joint space narrowing involving the medial lateral compartments both knees with sclerosis along the articular surface of the tibial plateau pronounced on the left knee. No gross suprapatellar bursa joint effusion. No lytic or blastic lesions. XR/XR knee LT 3V IMPRESSION: Status post open reduction internal fixation of a distal diaphysis metaphysis junction fracture of the left femur with the minimal healing. No gross change. Bicompartmental osteoarthrosis/osteoarthritis, mild to moderate, left knee. Electronically signed by: Mike Cedillo MD 11/17/2024 12:55 PM EDT
--- OUTSIDE RECORDS SUMMARY | 2024-11-17 09:59 | XMS_ITS | Clinical Summary ---
Author Organization [employer] Address [address] [place] [address] Care Team Providers Care Storage Specialist Name Role Phone Unavailable Primary Care Provider Unavailabl e Encounters Date Type Department Care Team Description 11/08/2024 Population Health Risk Score [facility] (C[facility]) Department [address] [address] [place] [address] Provider, Population Health Generic from Last 3 Months Social History Tobacco Use Types Packs/Day Years Used Date Smoking Tobacco: Never Assessed Comments Unknown Sex and Gender Information Value Date Recorded Sex Assigned at Not on file Legal Sex Female 9:25 PM EDT Gender Identity Not on file Sexual Orientation Not on file Plan of Treatment Health Maintenance Due Date Last Done Comments Depression Screening 1983 HIV Screening 1983 SDOH Screening 1983 Disability Screening 1983 Alcohol/Substance Use Screening 1995 Tobacco Screening 1995 Family Planning (PISQ) 09/04/1998 HPV Vaccines (1 - 3-dose series) 09/04/1998 Hepatitis C Screening 09/04/2001 DTaP/Tdap/Td Vaccines (1 - Tdap) 09/04/2002 Hepatitis B Vaccines (1 of 3 - 19+ 3-dose series) 09/04/2002 Pap Smear 09/04/2004 Cervical Cancer Screening 09/04/2013 HPV/Cotest 09/04/2013 Mammogram 2023 COVID-19 Vaccine ( - 2023-2 5 season) 2023 Influenza Vaccine (#1) 2024 Zoster Vaccines (1 of 2) 09/04/2033 RSV Patients and Pa tients Aged 60 years or older (1 - 1-dose 75+ series) 09/04/2058 HIB Vaccines Aged Out No longer eligi ble based on patient's age to complete this topic Hepatitis A Vaccines Aged Out No long er eligible based on patient's age to complete this topic IPV Vaccines Aged Out No longer eligi ble based on patient's age to complete this topic Meningococcal B Vaccine Aged Out No l onger eligible based on patient's age to complete this topic Meningococcal Vaccine Aged Out No roderick aime eligible based on patient's age to complete this topic Pneumococcal Vaccine: Pediat rics (0 to 5 Years) and At-Risk Patients (6 to 49) Years Aged Out No longer eligible b ased on patient's age to complete this topic RSV under 20 months Aged Out No longe r eligible based on patient's age to complete this topic Rotavirus Vaccines Aged Out No longer eligible based on patient's age to complete this topic
== END 2024-11-17 09:37 | disposition home or self-care (01) ==
LOC: HO.HOSX 09:36
PROVIDERS: Visit Provider Physician Assistant
DX: M17.12 Unilateral primary osteoarthritis, left knee (principal); M25.562 Pain in left knee; Z79.899 Other long term (current) drug therapy
CPT/HCPCS: 20610; 73562; 99212; J1010; J2003

== ENCOUNTER 2024-11-17 12:38 | Outpatient (AMB) | payer MEDICAID, SELFPAY ==
--- NOTE | 2024-11-17 13:26 | MHC.OFFVIS ---
Vital Signs 11/17/24 13:33 Height 5 ft 6 in Weight 175 lb BMI 28.2 Intake Visit Reasons: OV- Left Knee pain Intake Note: Gilda is a 39 year old female who presents today as an established patient with complaints of left knee pain. Patient was last seen in office for left knee pain on 02/17/22 status post fall. She was referred to physical therapy, work letter with restrictions for 4 weeks was provided and she was instructed to follow up as needed. Genumed knee brace was given. Today patient reports ongoing knee pain. She has constant pain that is located at the anterior aspect of knee. She attended physical therapy that did not help. Her knee brace that was given does not fit anymore due to recent weight loss. Vacuum Repairer Required: Yes Vacuum Repairer Services: Vacuum Repairer Present Vacuum Repairer Name: Дмитрий ID#[id number] Allergies Seafood Allergy (Severe, Uncoded 11/17/24 13:37) HIVES/SWELLING Medication List - Last Reconciled 11/17/24 by Bright Melgoza PA-C acetaminophen 500 mg PO QID PRN ergocalciferol (vitamin D2) 1,250 mcg PO QWEEK fluticasone propionate 110 mcg/actuation (Flovent HFA) 2 puffs inhalation BID PRN folic acid 1 mg PO DAILY nitrofurantoin monohyd/m-cryst 100 mg (Macrobid) 100 mg PO BID ondansetron 4 mg PO DAILY PRN 5 days polyethylene glycol 3350 (Miralax) 17 grams PO DAILY PRN thiamine HCl (vitamin B1) 100 mg PO DAILY HPI HPI OV- Left Knee pain: Details: 39 yo female presents to the office today for ongoing left knee pain. I saw her back in 2021, sent her for PT and gave her a Genumed knee brace. She states the PT was somewhat helpful, but she was able to tolerate her activities. 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 No recent treatment to date on the right knee. COUNTS INCLUDE 234 BEDS AT THE [facility] Medical History Kidney stone Arthritis BMI 26.0-26.9,adult Overweight (BMI 25.0-29.9) BMI 25.0-25.9,adult BMI 33.0-33.9,adult Prediabetes MARYANA on CPAP Adjustment disorder, unspecified BMI 34.0-34.9,adult BMI 35.0-35.9,adult Vitamin B1 deficiency Vitamin A deficiency Vitamin D deficiency Morbid (severe) obesity due to excess calories BMI 40.0-44.9, adult BMI 39.0-39.9,adult Shortness of breath Preoperative examination Gastritis Sleep apnea Asthma Migraine Surgical History S/P panniculectomy Hx of breast reduction, elective History of repair of hiatal hernia S/P laparoscopic sleeve gastrectomy Normal endoscopy Hx of colonoscopy Hx laparoscopic cholecystectomy History of bilateral tubal ligation H/O left knee surgery Family History Father Hypertension Heart problem Vertigo Mother Dementia Alzheimer disease Pneumathemia Sister Depressed Hypertension Anxiety History of gastric surgery Sister Diabetes mellitus Hypertension Depressed Anxiety Brother No problems noted. Brother No problems noted. Son Asthma Diabetes mellitus Obese abdomen Daughter Asthma Maternal Grandmother Colon cancer Paternal Grandmother Breast cancer Social History Are you a primary healthcare translator to a significant other at home: Yes Do you presently have visiting nurse or other home services: No Alcohol intake: never Patient Tobacco Use Status: Never used Tobacco service: No Current occupational status: unemployed Female Reproductive History Menstrual Age of Menarche: 11 Review of Systems Const All systems reviewed & are unremarkable except as noted in HPI and below Physical Exam Vital Signs: BMI result Body Mass Index 28.2 Const General: cooperative and no acute distress Orientation/consciousness: patient oriented x3 Resp Effort & Inspection: normal respiratory effort and able to speak in complete sentences Cardio Peripheral pulses: Peripheral pulses 2+ throughout Neuro General: patient oriented x3 Extrem Other: Left knee surgical scar well healed. She has full range of motion with crepitus and tenderness over the lateral edge of the patella. No joint effusion present. No ligamentous laxity. Calf supple nontender neurovascularly intact. Office Procedures AMB Joint Injection/Aspiration Joint Injection/Aspiration Primary Site: left knee Prep: site was prepped using aseptic technique, ethochloride spray was applied and injection warnings given Injected: 80 mg of, DepoMedrol, with 8 mL of, 1% plain lidocaine and in the joint Approach Used: anterolateral Coding - Glenohumeral/Tronchanteric Bursa/Intraarticular Procedure code (CPT) selection complete Results Reviewed Results Reviewed: X-rays of the left knee obtained in the office today and reviewed by me show intact orthopedic hardware. She does have some patellofemoral arthritis. Assessment & Plan Assessment & Plan (1) Osteoarthritis of left patellofemoral joint: Code(s): M17.12 - Unilateral primary osteoarthritis, left knee Category: Medical Plan: We discussed options today which includes physical therapy to work on a refresher course of strength and conditioning exercises. She was fit for a new stabilizing knee brace in the office today. She will use this with any type of impact activity. She was also given a left knee steroid injection which the patient tolerated well. If symptoms persist or worsen she will contact our office otherwise she will follow up as needed. Orders: Orders XR knee LT 3V Today M25.562 - Pain in left knee PT Evaluation and Treatment Today M17.12 - Unilateral primary osteoarthritis, left knee Coding Level of Care Code Est Pt Level 3 (67546) Complex EM visit Add On G2211 Diagnoses Osteoarthritis of left patellofemoral joint M17.12 CPT Codes Coding - Joint 7: - Glenohumeral/Tronchanteric Bursa/Intraarticular ([id number])
[2024-11-17 13:33] VITALS: BMI 28.2
== END 2024-11-17 14:20 | disposition home or self-care (01) ==
LOC: HO.HOS 12:39
PROVIDERS: PCP Nurse Practitioner Family; Visit Provider Physician Assistant
DX: M17.12 Unilateral primary osteoarthritis, left knee (principal)
CPT/HCPCS: 20610; 99213

== ENCOUNTER → 2024-11-17 12:42 | Outpatient (BNV) | payer MEDICAID, SELFPAY | PROVIDERS: Visit Provider Radiology Diagnostic Radiology | DX: M17.12 Unilateral primary osteoarthritis, left knee (principal) | CPT/HCPCS: 73562 ==

== ENCOUNTER 2025-02-06 11:15 | Outpatient (AMB) | payer MEDICAID, SELFPAY ==
--- NOTE | 2025-02-06 11:12 | MHC.OFFVISWM ---
VS Expanded 02/06/25 11:18 Height 5 ft 6 in Weight 172 lb BMI 27.8 Intake Visit Reasons: (phone) PO LSG 07/18/20 Auto Rental Clerk Required: Yes Auto Rental Clerk Name: Cristina [id number] Information Interpreted: clinical only Allergies Seafood Allergy (Severe, Uncoded 11/17/24 13:37) HIVES/SWELLING Medication List - Last Reconciled 02/06/25 by NITO Pink acetaminophen 500 mg PO QID PRN ergocalciferol (vitamin D2) 1,250 mcg PO QWEEK fluticasone propionate 110 mcg/actuation (Flovent HFA) 2 puffs inhalation BID PRN folic acid 1 mg PO DAILY phentermine 15 mg PO DAILY polyethylene glycol 3350 (Miralax) 17 grams PO DAILY PRN thiamine HCl (vitamin B1) 100 mg PO DAILY HPI Comments Details: This is a 39 yo female who is s/p LSG 07/18/2020. Presents for 4.5 year post op visit. Weight gain of 9lb since last OV 1 year ago. Pt reports she has not been following a consistent meal plan, eating junk . sodas are killing me . Interested in weight loss medications. She had been using her sister's weight loss medications which helped her to get her weight down to 150. Exercise routine includes: not every day, maybe 1x a week- I don't have time because of work [facility] Medical History Kidney stone Arthritis BMI 26.0-26.9,adult Overweight (BMI 25.0-29.9) BMI 25.0-25.9,adult BMI 33.0-33.9,adult Prediabetes MARYANA on CPAP Adjustment disorder, unspecified BMI 34.0-34.9,adult BMI 35.0-35.9,adult Vitamin B1 deficiency Vitamin A deficiency Vitamin D deficiency Morbid (severe) obesity due to excess calories BMI 40.0-44.9, adult BMI 39.0-39.9,adult Shortness of breath Preoperative examination Gastritis Sleep apnea Asthma Migraine Surgical History S/P panniculectomy Hx of breast reduction, elective History of repair of hiatal hernia S/P laparoscopic sleeve gastrectomy Normal endoscopy Hx of colonoscopy Hx laparoscopic cholecystectomy History of bilateral tubal ligation H/O left knee surgery Family History Father Hypertension Heart problem Vertigo Mother Dementia Alzheimer disease Pneumathemia Sister Depressed Hypertension Anxiety History of gastric surgery Sister Diabetes mellitus Hypertension Depressed Anxiety Brother No problems noted. Brother No problems noted. Son Asthma Diabetes mellitus Obese abdomen Daughter Asthma Maternal Grandmother Colon cancer Paternal Grandmother Breast cancer Social History Are you a primary career technical counselor to a significant other at home: Yes Do you presently have visiting nurse or other home services: No Alcohol intake: never Patient Tobacco Use Status: Never used Tobacco service: No Current occupational status: unemployed Female Reproductive History Menstrual Age of Menarche: 11 Telehealth Telehealth Telehealth Platform: Telephone Location of provider rendering services: other Location of patient: address on file Patient Identification confirmed using: Name, : Yes Telehealth method: voice only Patient verbally consented to treatment: Yes Patient verbally consented to billing insurance company: Yes Patient informed of any privacy concerns related to visit: Yes Minutes spent on Phone/Video with Pt.: 18 Assessment & Plan Assessment & Plan (1) S/P laparoscopic sleeve gastrectomy: Code(s): Z98.84 - Bariatric surgery status Category: Surgical (2) Overweight (BMI 25.0-29.9): Code(s): E66.3 - Overweight Category: Medical Plan Discussed that pt is likely not a candidate for GLP1 medications due to insurance changes and requirement of phentermine prior to initiation. Discussed the option of self pay, however pt not interested. Pt is interested in starting phentermine. Reviewed contraindications and side effects. Pt understands the requirement of daily BP monitoring prior to dosing. If SBP > 140 or DBP >90 do not take phentermine that day. Text me BP readings daily. Labs ordered. RTC 4mo. Orders: Orders Ferritin Today Z98.84 - Bariatric surgery status C Reactive Protein Today Z98.84 - Bariatric surgery status Vitamin B1 Today Z98.84 - Bariatric surgery status Vitamin A Today Z98.84 - Bariatric surgery status Zinc Today Z98.84 - Bariatric surgery status Vitamin B12 and Folate Today Z98.84 - Bariatric surgery status Comprehensive Met. Panel Today Z98.84 - Bariatric surgery status Complete Blood Count Auto Diff Today Z98.84 - Bariatric surgery status Lipid Panel Today Z98.84 - Bariatric surgery status Vitamin D 25-OH Total Today Z98.84 - Bariatric surgery status TSH reflex Free T4 Today Z98.84 - Bariatric surgery status IRON PROFILE Today Z98.84 - Bariatric surgery status Hemoglobin A1c Today Z98.84 - Bariatric surgery status Insulin Today Z98.84 - Bariatric surgery status Medications: New phentermine must administer 2 hours after breakfast 15 mg PO DAILY 30 caps 0RF
[2025-02-06 11:18] VITALS: BMI 27.8
== END 2025-02-06 11:47 | disposition home or self-care (01) ==
LOC: HO.HBS 11:15
PROVIDERS: PCP Dentist General Practice; Visit Provider Physician Assistant Surgical
DX: Z98.84 Bariatric surgery status (principal); E66.3 Overweight
CPT/HCPCS: 99214